=== PATIENT | female | born 1955 | race Two or more races ===

== ENCOUNTER 2024-10-10 07:09 | Inpatient (IN) | payer OTHER, MEDICAID ==
[~2024-10-10] VITALS: Ht 167.6 cm; Wt 73.0 kg
[2024-10-10] VITALS (8 sets, daily range): BP systolic 112; BP diastolic 72; PULSE 103–156; RESP 20–24; TEMP 98.1; O2SAT 93–98
--- NOTE | 2024-10-10 07:18 | ECG ---
[facility] Test Date: 2024-10-10 Test Time: 07:11:42 Pat Name: YUSUF OVERTON Department: ED Room: [address] [place] [address] Gender: F Cassandra Architect: LETHA : 1955 Requested By: TERE PIRES Order Number: [id number] Reading MD: Asad Urbano Measurements Intervals [place] Rate: 148 P: 0 CO: 0 QRS: 79 QRSD: 90 T: 0 QT: 347 QTc: 545 Interpretive Statements Atrial fibrillation Ventricular premature complex Anterior infarct, old ST depression, probably rate related Prolonged QT interval Electronically Signed On 10-12-2024 9:54:53 PDT by Asad Urbano Please click the below link to view image of tracing.
--- NOTE | 2024-10-10 07:51 | ED.PDOC ---
SOB-HPI HPI Comments 69 y/o F, BIBA, with PMHx of CHF, HTN, and COPD presents to the ED for CC of shortness of breath. EMS reports, patient is coming from home where she c/o shortness of breath with associated symptoms of nausea, vomiting, and dizziness onset, 0400 this morning (10/10/24). Per EMS, upon arrival to scene patient was saturating at 84% on continuous 3L NC. In route to the ED, patient was given x1 Duo Neb, saturation improved to 100% on 3L NC. Patient's EKG in route showed AFib RVR, with a HR in the 160's. Upon arrival to the ED, patient was transferred to ER bed 5 for further care. Chief Complaint: Shortness of Breath Time Seen by MD: 07:10 Reviewed notes: Nurses Notes, Skip Hoist Engineer Notes, Medications, Allergies Information Source: Patient Mode of Arrival: EMS Severity: Moderate Timing: Hours Duration: Since onset Context: At Rest PE Risk Factors: None History of: COPD, CHF Prehospital treatment: Breathing Tx Modifying Factors: Nothing Associated Signs and Symptoms: None Past Medical History PAST MEDICAL HISTORY: CHF, COPD, HTN Surgical History: Denies all surgeries PROTECTIVE SIGNAL OPERATIONS SUPERVISOR History: Denies all PROTECTIVE SIGNAL OPERATIONS SUPERVISOR Hx Family History Family History: Unknown Social History Smoker: Non-Smoker Alcohol: Denies ETOH Use Drugs: Denies Drug Use Lives In: Home Constitutional: denies: chills, diaphoresis, fatigue, fever, malaise, sweats, weakness, others EENTM: denies: blurred vision, double vision, ear bleeding, ear discharge, ear drainage, ear pain, ear ringing, eye pain, eye redness, hearing loss, mouth pain, mouth swelling, nasal discharge, nose bleeding, nose congestion, nose pain, photophobia, tearing, throat pain, throat swelling, voice changes, others Respiratory: reports: shortness of breath; denies: cough, hemoptysis, orthopnea, SOB at rest, SOB with excertion, stridor, wheezing, others Cardiovascular: denies: chest pain, dizzy spells, diaphoresis, Dyspnea on exertion, edema, irregular heart beat, left arm pain, lightheadedness, palpitations, PND, syncope, others Gastrointestinal: reports: nausea, vomiting; denies: abdomen distended, abdominal pain, blood streaked bowels, constipated, diarrhea, dysphagia, difficulty swallowing, hematemesis, melena, poor appetite, poor fluid intake, rectal bleeding, rectal pain, others Genitourinary: denies: abnormal vagina bleeding, burning, dyspareunia, dysuria, flank pain, frequency, hematuria, incontinence, pain, , vagina discharge, urgency, others Neurological: reports: dizziness; denies: fainting, headache, left sided numbness, left sided weakness, numbness, paresthesia, pre-existing deficit, right sided numbness, right sided weakness, seizure, speech problems, tingling, tremors, weakness, others Musculoskeletal: denies: back pain, gout, joint pain, joint swelling, muscle pain, muscle stiffness, neck pain, others Integumetry: denies: bruises, change in color, change in hair/nails, dryness, laceration, lesions, lumps, rash, wounds, others Allergic/Immunocompromised: denies: Difficulty Healing, Frequent Infections, Hives, Itching, others Hematologic/Lymphatic: denies: anemia, blood clots, easy bleeding, easy bruising, swollen glands, others Endocrine: denies: excessive hunger, excessive sweating, excessive thirst, excessive urination, flushing, intolerance to cold, intolerance to heat, unexplained weight gain, unexplained weight loss, others Psychiatric: denies: anxiety, bipolar disorder, depression, hopeless, panic disorder, schizophrenia, sleepless, suicidal, others All Other Systems: Reviewed and Negative Physical Exam General Appearance: Mild Distress, Moderate Distress HEENT: Normal ENT Inspection, Pharynx Normal, TMs Normal Neck: Full Range of Motion, Non-Tender, Normal, Normal Inspection Respiratory: Accessory Muscle Use, Decreased Breath Sounds, Expiration, Inspiration, No Respiratory Distress, Rhonchi Cardiovascular: No Murmur, Normal Peripheral Pulses, Tachycardia Breast Exam: Deferred Gastrointestinal: No Organomegaly, Non Tender, No Pulsatile Mass, Normal Bowel Sounds, Soft Genitalia: Deferred Pelvic: Deferred Rectal: Deferred Extremities: No calf tenderness, Normal capillary refill, Normal inspection, Normal range of motion, Non-tender, No pedal edema Neurologic: Alert, transport pilot II-XII nml as Tested, No Motor Deficits, Normal Affect, Normal Mood, No Sensory Deficits Cerebellar Function: Normal Reflexes: Normal Skin: Dry, Normal Color, Warm Peripheral Pulses: 1+ carotid (R), 1+ carotid (L) Lymphatic: No Adenopathy EKG EKG : Pulse Rate (adult): 148 [place]: Normal Cardiac Rhythm: ST, Afib, PVC's Comments Prolonged QT interval Was a procedure done? Was a procedure done?: No Differential Dx Differential Diagnosis: Pulmonary Embolism, Respiratory Distress X-Ray, Labs, Meds, VS Vital Signs Date Time Temp Pulse Resp B/P (MAP) Pulse Ox O2 Delivery O2 Flow Rate FiO2 10/10/24 11:00 114 19 150/102 (118) 95 10/10/24 10:24 98.1 117 20 112/72 94 3.0 32 98.1 10/10/24 10:00 104 24 137/91 (106) 93 10/10/24 09:44 20 94 Nasal Cannula* 3 32 10/10/24 09:09 148 10/10/24 09:00 103 16 129/94 (106) 88 10/10/24 08:14 117 10/10/24 08:00 114 16 112/72 (85) 88 10/10/24 07:59 152 112/72 10/10/24 07:30 98.1 156 24 139/95 (110) 95 98.1 10/10/24 07:30 156 24 95 Nasal Cannula* 3 32 10/10/24 07:11 148 10/10/24 07:09 100 Nasal Cannula* 3 32 10/10/24 07:09 97.8 160 32 147/97 (114) 100 97.8 Lab Test 10/10/24 11:30 10/10/24 10:58 10/10/24 08:32 10/10/24 07:30 Range/Units Urine Color Dark-brown Yellow Urine Clarity Ex.turbid Clear Urine pH 5.5 5.0-9.0 Urine Specific [place] 1.029 1.001-1.035 Urine Protein 1+ H Negative Urine Ketones Negative Negative Urine Blood Negative Negative /uL Urine Nitrite Negative Negative Urine Bilirubin Negative Negative Urine Urobilinogen Normal Negative mg/dL Urine Leukocyte Esterase 2+ Negative /uL Urine RBC 5 0 - 4 /hpf Urine Microscopic WBC 27 H 0-5 /HPF Urine Squamous Epithelial Cells Few <5 /hpf Urine Bacteria Few H None Seen /hpf Urine Mucus Many None Seen Urine Glucose Trace Normal mg/dL Troponin I High Sensitivity 1987 *H 1743 *H 1955 *H </=34 ng/L Sodium Level 144 136-145 mmol/L Potassium Level 4.0 3.5-5.1 mmol/L Chloride Level 110 H 98-107 mmol/L Carbon Dioxide Level 24 20-31 mmol/L Anion Gap 10 5-15 Blood Urea Nitrogen 12 9-23 mg/dL Creatinine 0.71 0.550-1.02 mg/dL Glomerular Filtration Rate Calc 91 >90 mL/min BUN/Creatinine Ratio 16.9 10.0-20.0 Serum Glucose 123 H 74-106 mg/dL Calcium Level 9.2 8.7-10.4 mg/dL Magnesium Level 1.8 1.6-2.6 mg/dL Total Bilirubin 0.9 0.2-1.0 mg/dL Aspartate Amino Transferase (AST) 30 13-40 U/L Alanine Aminotransferase (ALT) 13 7-40 U/L Alkaline Phosphatase 120 H 46-116 U/L Total Protein 5.7 5.7-8.2 g/dL Albumin 3.6 3.2-4.8 g/dL White Blood Count 12.4 H 4.4-10.8 10^3/uL Red Blood Count 4.48 4.0-5.20 10^6/uL Hemoglobin 13.6 12.2-16.2 g/dL Hematocrit 42.0 36.0-46.0 % Mean Corpuscular Volume 93.7 80.0-100.0 fL Mean Corpuscular Hemoglobin 30.4 28.0-32.0 pg Mean Corpuscular Hemoglobin Concent 32.5 32.0-36.0 g/dL Red Cell Distribution Width 17.0 H 11.8-14.3 % Platelet Count 180 140-450 10^3/uL Mean Platelet Volume 7.4 6.9-10.8 fL Neutrophils (%) (Auto) 85.0 H 37.0-80.0 % Lymphocytes (%) (Auto) 7.4 L 10.0-50.0 % Monocytes (%) (Auto) 6.4 0.0-12.0 % Eosinophils (%) (Auto) 0.9 0.0-7.0 % Basophils (%) (Auto) 0.3 0.0-2.0 % Neutrophils # (Auto) 10.6 H 1.6-8.6 10 ^3/uL Lymphocytes # (Auto) 0.9 0.4-5.4 10 ^3/uL Monocytes # (Auto) 0.8 0-1.3 10 ^3/uL Eosinophils # (Auto) 0.1 0-0.8 10 ^3/uL Basophils # (Auto) 0 0-0.2 10 ^3/uL Nucleated Red Blood Cells 0.0 % Prothrombin Time 12.2 H 9.3-11.8 sec Prothrombin Time INR 1.17 H 0.9-1.15 Activated Partial Thromboplast Time 28.5 24.5-34.5 SEC D-Dimer, Quantitative 21.30 H 0.0-0.49 mg/L FEU B-Type Natriuretic Peptide 405.04 0-100 pg/mL Thyroid Stimulating Hormone (TSH) 2.59 0.55-4.78 uIU/mL Current Medications Medications (Trade) Dose Ordered Sig/Naldo Route Start Time Stop Time Status Last Admin Albuterol (Ventolin Medneb) 2.5 mg Q4HR NEB 10/10/24 10:00 10/10/24 09:43 Ipratropium [place] (Atrovent Medneb) 0.5 mg Q4HR NEB 10/10/24 10:00 10/10/24 09:43 Sodium Chloride 1,000 ml @ 30 mls/hr Q24H ONCE IV 10/10/24 07:30 10/11/24 07:29 10/10/24 07:58 Labetalol HCl (Labetalol HCl) 10 mg ONCE ONCE IV 10/10/24 07:45 10/10/24 07:46 DC 10/10/24 07:59 Acetaminophen/ Hydrocodone Bitart ([place] 5/325MG Tab) 1 tab ONCE ONCE PO 10/10/24 09:15 10/10/24 09:16 DC 10/10/24 09:23 Heparin Sodium (Porcine) 3,800 units ONCE ONCE IV 10/10/24 09:30 10/10/24 09:31 DC 10/10/24 09:27 Heparin Sodium/ Dextrose 250 ml @ 8 mls/hr Q24H IV 10/10/24 09:30 10/10/24 10:02 [facility] [id number] [place] [id number] Ph: [phone] DIAGNOSTIC IMAGING Diagnostic Imaging Report : [id number] Signed PATIENT: FREDY BOATENG ACCT: [id number] UNIT: [id number] : 1955 LOC: ER ROOM / BED: / AGE / SEX: 69 / F ADM STATUS: REG ER SERVICE 5 ORDERING PHYSICIAN: TERE PIRES MD PROCEDURE(s): CXRP - CHEST PORTABLE REASON: sob ORDER NUMBER(s): [id number], ACCESSION NUMBER(s): [id number] CHEST RADIOGRAPH Indication: sob Technique: Single frontal view of the chest was obtained Comparison: None FINDINGS: Lines and Tubes: None Lungs: Bilateral interstitial prominence. Pleura: Small bilateral pleural effusions. No pneumothorax. Cardiomediastinal contours: Unremarkable Bones: No acute osseous abnormality. IMPRESSION: 1. Small bilateral pleural effusions. Pulmonary vascular congestion. ATED BY: YONG TEMPLE MD DICTATED DATE/TIME: 10/10/24809 SIGNED BY: YONG TEMPLE MD SIGNED DATE/TIME: 10/10/24809 CC: X-Ray, Labs, Meds, VS Comment 69-year-old black female presented to the emergency department complaining of short shortness of breath atrial fibrillation somewhat agitated the chest x-ray shows pulmonary vascular congestion and bilateral pleural effusion EKG shows atrial fibrillation and one 0 on 148 with a PVCs and QT interval prolonged The 2nd EKG slow down to 117 CBC 69495 85 % neutrophils normal H&H D-dimer 21.3 very elevated INR one 0.17 CMP normal Magnesium 1.8 Troponin 1955 and 1742 BNP 405 TSH 2.[address] angiogram at shows pulmonary embolism Patient will be admitted under Cardiology was consulted Time of 1ST Reevaluation: 07:40 Reevaluation 1ST: Unchanged Patient Education/Counseling: Diagnosis, Treatment Family Education/Counseling: No Family Present SEPSIS Sepsis Screen Date sepsis recognized/suspect: Oct 10, 2024 Time Sepsis recognized/suspect: 708 Recent Procedure: No On Antibiotic Therapy: No Respiratory Rate >20: Yes Heart Rate >90: Yes Temp<36 C (96.8 F) or >38.3 C: No SBP <90 or MAP <65 mmHG: No New Acute Mental Status Change: No Is the patient on CPAP, BIPAP,: No Physician Orders Electrocardigram (10/10/24 10:15) Albuterol Medneb (Ventolin Medneb) (10/10/24 10:00) Ipratropium Medneb (Atrovent Medneb) (10/10/24 10:00) Chest Portable (10/10/24 07:26) [place]ock Iv (10/10/24 07:26) Oxygen (10/10/24 07:26) Wine Manager (10/10/24 07:26) Blood Pressure (10/10/24 07:26) Pulse Oximetry (10/10/24 07:26) Sodium Chloride 0.9% (10/10/24 07:30) Platelet Monitoring (10/10/24 09:20) Heparin Per Standardized Proce (10/10/24 09:20) Discontinue All Im Injections (10/10/24 09:20) Heparin Drip/D5w 100units/Ml (10/10/24 09:30) Stat Ekg For Chest Pain (10/10/24 09:20) Heparin Protocol (10/10/24 09:51) PTPTT (10/10/24 16:00) Ct Angio Chest Contrast (10/10/24 10:22) Bilat Lower Dvt (10/10/24 11:20) Echo 2d Mode Cardiac Dop (10/10/24 11:20) Furosemide Injection (Lasix Injection) (10/10/24 18:00) Strict I & O QSHIFT (10/10/24 11:21) Obtain Daily Weight 22 (10/10/24 11:21) Maintain Fluid Restrictions QSHIFT (10/10/24 11:21) Insert/Manage Urinary Catheter QSHIFT (10/10/24 11:28) Atorvastatin (Lipitor) (10/10/24 22:00) Empagliflozin (Jardiance) (10/11/24 10:00) Losartan Tablet (Cozaar Tablet) (10/11/24 10:00) Spironolactone (Aldactone) (10/11/24 10:00) Amiodarone 360mg/200ml Premix (Nexterone (10/10/24 12:15) Amiodarone 360mg/200ml Premix (Nexterone (10/10/24 18:15) Magnesium Sulfate 1gm/100ml (10/10/24 12:15) Vital Signs Date Time Temp Pulse Resp B/P (MAP) Pulse Ox O2 Delivery O2 Flow Rate FiO2 10/10/24 11:00 114 19 150/102 (118) 95 10/10/24 10:24 98.1 117 20 112/72 94 3.0 32 98.1 10/10/24 10:00 104 24 137/91 (106) 93 10/10/24 09:44 20 94 Nasal Cannula* 3 32 10/10/24 09:09 148 10/10/24 09:00 103 16 129/94 (106) 88 10/10/24 08:14 117 10/10/24 08:00 114 16 112/72 (85) 88 10/10/24 07:59 152 112/72 10/10/24 07:30 98.1 156 24 139/95 (110) 95 98.1 10/10/24 07:30 156 24 95 Nasal Cannula* 3 32 10/10/24 07:11 148 10/10/24 07:09 100 Nasal Cannula* 3 32 10/10/24 07:09 97.8 160 32 147/97 (114) 100 97.8 Laboratory Tests Test 10/10/24 07:30 White Blood Count 12.4 10^3/uL (4.4-10.8) H Medications Medications Dose Ordered Sig/Naldo Route Start Time Stop Time Status Last Admin Dose Admin Acetaminophen/ Hydrocodone Bitart 1 tab ONCE ONCE PO 10/10/24 09:15 10/10/24 09:16 DC 10/10/24 09:23 Albuterol 2.5 mg Q4HR NEB 10/10/24 10:00 10/10/24 09:43 Heparin Sodium (Porcine) 3,800 units ONCE ONCE IV 10/10/24 09:30 10/10/24 09:31 DC 10/10/24 09:27 Heparin Sodium/ Dextrose 250 ml @ 8 mls/hr Q24H IV 10/10/24 09:30 10/10/24 10:02 Ipratropium [place] 0.5 mg Q4HR NEB 10/10/24 10:00 10/10/24 09:43 Labetalol HCl 10 mg ONCE ONCE IV 10/10/24 07:45 10/10/24 07:46 DC 10/10/24 07:59 Sodium Chloride 1,000 ml @ 30 mls/hr Q24H ONCE IV 10/10/24 07:30 10/11/24 07:29 10/10/24 07:58 Departure 1 Departure Time of Disposition: 12:52 Impression: Primary Impression: Uncontrolled atrial fibrillation Additional Impressions: Elevated d-dimer Acute coronary syndrome with high troponin Pulmonary embolism Qualified Codes: I26.99 - Other pulmonary embolism without acute cor pulmonale Congestive heart failure Qualified Codes: I50.43 - Acute on chronic combined systolic (congestive) and diastolic (congestive) heart failure Disposition: ADMITTED INPATIENT Admit to: ICU Condition: Critical Critical Care Note Critical Care Time?: Yes (30 min-critical care time only) Stability Stability form required: Yes Unstable for transfer: ICU, CCU, PCU, MIRNA (Intensive VS monitoring), Requires medication (Requires Med for stabilization) Heart Score Heart Score: Heart Score Response (Comments) Value History Highly Suspicious 2 EKG Repolarization Disturb 1 Age N/A 0 Risk Factors >3 or Hx ASHD 2 Troponin >3 x's Normal limit 2 Total 7 I personally scribed for TERE PIRES MD ([email or web address]) on 10/10/24 at 07:51. Electronically submitted by Jud Fu ([email or web address]). I personally scribed for TERE PIRES MD ([email or web address]) on 10/10/24 at 08:55. Electronically submitted by Jud Fu ([email or web address]). TERE PIRES MD Oct 10, 2024 07:51
[2024-10-10] MEDS: SODIUM CHLORIDE 0.9% 1,000 ML IV ONE (07:58)
[2024-10-10] MEDS: LABETALOL HCL 20 MG/4 ML VL IV ONE (07:59)
[2024-10-10 08:00] LABS: Hematocrit 42.0 % (36.0-46.0); Hemoglobin 13.6 g/dL (12.2-16.2); Mean Corpuscular Hemoglobin 30.4 pg (28.0-32.0); Mean Corpuscular Volume 93.7 fL (80.0-100.0); Nucleated Red Blood Cells % 0.0 %
--- NOTE | 2024-10-10 08:12 | DVH ---
CHEST RADIOGRAPH Indication: sob Technique: Single frontal view of the chest was obtained Comparison: None FINDINGS: Lines and Tubes: None Lungs: Bilateral interstitial prominence. Pleura: Small bilateral pleural effusions. No pneumothorax. Cardiomediastinal contours: Unremarkable Bones: No acute osseous abnormality. IMPRESSION: 1. Small bilateral pleural effusions. Pulmonary vascular congestion.
--- NOTE | 2024-10-10 08:15 | ECG ---
[facility] Test Date: 2024-10-10 Test Time: 08:14:00 Pat Name: YSUUF OVERTON Department: ED Room: [address] [place] [address] Gender: F Trick Rodeo Rider: gp : 1955 Requested By: TERE PIRES Order Number: [id number] Reading MD: Asad Urbano Measurements Intervals [place] Rate: 117 P: 0 CO: 0 QRS: 81 QRSD: 84 T: 76 QT: 352 QTc: 491 Interpretive Statements Atrial fibrillation Anterior infarct, old Electronically Signed On 10-12-2024 10:20:50 PDT by Asad Urbano Please click the below link to view image of tracing.
[2024-10-10 08:23] LABS: INR 1.17 (0.9-1.15); Partial Thromboplastin Time 28.5 SEC (24.5-34.5); Prothrombin Time 12.2 sec (9.3-11.8)
[2024-10-10 09:00] LABS: Alanine Aminotransferase 13 U/L (7-40); Albumin 3.6 g/dL (3.2-4.8); Anion Gap 10 (5-15); BUN/Creatinine Ratio 16.9 (10.0-20.0); Blood Urea Nitrogen 12 mg/dL (9-23); Calcium 9.2 mg/dL (8.7-10.4); Carbon Dioxide 24 mmol/L (20-31); Magnesium 1.8 mg/dL (1.6-2.6); Potassium 4.0 mmol/L (3.5-5.1); Sodium 144 mmol/L (136-145)
[2024-10-10 09:01] LABS: Bilirubin, Total 0.9 mg/dL (0.2-1.0)
[2024-10-10 09:12] LABS: Alkaline Phosphatase 120 U/L (46-116); Chloride 110 mmol/L (98-107); Glucose 123 mg/dL (74-106); Total Protein 5.7 g/dL (5.7-8.2)
[2024-10-10] MEDS: HYDROcodone-ACET 5/325MG TAB PO ONE ×2 (09:23→14:59)
[2024-10-10] MEDS: HEPARIN SODIUM (PORCINE) 5000 UNITS/ML 1ML VIAL IV ONE (09:27)
[2024-10-10] MEDS: IPRATROPIUM BROM 0.5 MG/2.5ML INH SOL NEB SCH ×2 (09:43→18:08)
[2024-10-10] MEDS: ALBUTEROL SULF 2.5 MG/0.5ML(0.5%) NEB SOLN NEB SCH ×2 (09:43→18:07)
[2024-10-10] MEDS: HEPARIN DRIP/D5W 100UNITS/ML 250 ML IV SCH (10:02)
--- NOTE | 2024-10-10 10:09 | CONS ---
Pharmacy Clinical Information: HEPARIN DRIP PER PHARMACY SPOKE TO RUTH STANLEY REGARDING HEPARIN DRIP INITIATION CURRENT aPTT: 28.5 ON 10/10/2024 AT 07:30 BOLUS: 3800 UNITS IVP X1 PER MD INITIAL HEPARIN DRIP RATE: 800 UNITS/HR DATE AND TIME HEPARIN DRIP STARTED: 10:02 ON 10/10/2024 NEXT aPTT: 10/10/2024 AT 1600 RN JADEN READ BACK INITIAL HEPARIN DRIP RATE: 800 UNITS/HR TIM Ragland Oct 10, 2024 10:09
--- NOTE | 2024-10-10 11:19 | DVHINCON2 ---
Date Seen: Oct 10, 2024 Referring Physician MD Juanita Reason for Consultation NSTEMI History of Present Illness This is a 69-year-old female who presented to the emergency room via EMS with a chief complaint of shortness of breath since yesterday. The patient complains of progressive shortness of breath associated with LOOMIS and PND. Denies orthopnea or bilateral lower extremity edema. She was found by EMS with an ox ygen saturation level of 84% on home O2 anterior L/min for which she received a DuoNeb treatment EN route to the hospital with improvement in O2 saturations up to 100%. She underwent a 12 lead electrocardiogram revealing an atrial fibrillation rhythm with rapid ventricular rate in the 140s bpm and a QTC of 545 ms. The patient endorses not taking her Lasix therapy for approximately 2-3 days secondary to a recent admission at [facility] on 10/05/2024 where she presented with complaints of left rib cage pain undergoing an unspecified biopsy with results pending at this time. The patient also reports an admission to [facility] back on May 2024 where she was diagnosed with CHF and atrial fibrillation. At that time, she reports undergoing a cardiac catheterization without catheter based intervention given normal coronaries. States she has an upcoming appointment with Cardiology next month. Significant medical history includes unspecified congestive heart failure, paroxysmal atrial fibrillation on Eliquis/amiodarone therapy, COPD, history of pneumonia, hypertension, and dyslipidemia. Past Medical History Past medical history reviewed. No other significant than mentioned above. Past Surgical History Left-sided rib cage biopsy Family History Family history reviewed. Social History Denies the use of illicit drugs, alcohol, or tobacco use. Allergies: Coded Allergies: Aspirin (Verified Allergy, Unknown, 10/10/24) Home Meds Home medications reviewed. Current Medications Current Medications Medications (Trade) Dose Ordered Sig/Naldo Route PRN Reason Start Time Stop Time Status Last Admin Albuterol (Ventolin Medneb) 2.5 mg Q4HR NEB 10/10/24 10:00 10/10/24 09:43 Ipratropium [place] (Atrovent Medneb) 0.5 mg Q4HR NEB 10/10/24 10:00 10/10/24 09:43 Heparin Sodium/ Dextrose 250 ml @ 8 mls/hr Q24H IV 10/10/24 09:30 10/10/24 10:02 Review of Systems Constitutional: No symptom reported Ears, Nose, & Throat: No symptom reported Eyes: No symptom reported Neurological: No symptoms reported Pulmonary/Respiratory: SOB, LOOMIS, PND Cardiovascular: No symptom reported Gastrointestinal: No symptom reported Genitourinary: No symptom reported Musculoskeletal: No symptom reported Skin: No symptom reported Psychiatric: No symptom reported Endocrine: No symptom reported Hemotologic/Lymphatic: No symptom reported Vital Signs Vital Signs Date Time Temp Pulse Resp B/P (MAP) Pulse Ox O2 Delivery O2 Flow Rate FiO2 10/10/24 10:24 98.1 117 20 112/72 94 3.0 32 98.1 10/10/24 09:44 Nasal Cannula* Physical Exam General Appearance: Cooperative. Well developed. Well nourished. In no acute distress Head Exam: Normal inspection Neck Exam: Normal inspection. Non-tender. Normal alignment Pulmonary/Respiratory: Chest non-tender. Crackles to bilateral breath sounds. O2 via NC Cardiovascular/Chest: Irregularly irregular rate and rhythm. AFib with RVR. No murmurs. No JVD. Peripheral Pulses: 2+ Radial (R). 2+ Radial (L). 2+ Pedal (R). 2+ Pedal (L) Abdominal Exam: Normal bowel sounds. Soft. Nontender. No hepatospenomegaly. N o masses Ankle Exam: Negative ankle edema Lower extremities: Negative lower extremity edema Neuro/Mental Status: A&O x3. Coherent somewhat poor historian Thoughts/Psych: Normal thought pattern. Appropriate mood and affect. Good judgement and insight Appearance: In no acute distress Skin Exam: Normal inspection. Normal color. Warm. Dry Labs/Diagnostic Data Labs Test 10/10/24 10:58 10/10/24 08:32 10/10/24 07:30 Range/Units Sodium Level 144 136-145 mmol/L Potassium Level 4.0 3.5-5.1 mmol/L Chloride Level 110 H 98-107 mmol/L Carbon Dioxide Level 24 20-31 mmol/L Anion Gap 10 5-15 Blood Urea Nitrogen 12 9-23 mg/dL Creatinine 0.71 0.550-1.02 mg/dL Glomerular Filtration Rate Calc 91 >90 mL/min BUN/Creatinine Ratio 16.9 10.0-20.0 Serum Glucose 123 H 74-106 mg/dL Calcium Level 9.2 8.7-10.4 mg/dL Magnesium Level 1.8 1.6-2.6 mg/dL Total Bilirubin 0.9 0.2-1.0 mg/dL Aspartate Amino Transferase (AST) 30 13-40 U/L Alanine Aminotransferase (ALT) 13 7-40 U/L Alkaline Phosphatase 120 H 46-116 U/L Total Protein 5.7 5.7-8.2 g/dL Albumin 3.6 3.2-4.8 g/dL White Blood Count 12.4 H 4.4-10.8 10^3/uL Red Blood Count 4.48 4.0-5.20 10^6/uL Hemoglobin 13.6 12.2-16.2 g/dL Hematocrit 42.0 36.0-46.0 % Mean Corpuscular Volume 93.7 80.0-100.0 fL Mean Corpuscular Hemoglobin 30.4 28.0-32.0 pg Mean Corpuscular Hemoglobin Concent 32.5 32.0-36.0 g/dL Red Cell Distribution Width 17.0 H 11.8-14.3 % Platelet Count 180 140-450 10^3/uL Mean Platelet Volume 7.4 6.9-10.8 fL Neutrophils (%) (Auto) 85.0 H 37.0-80.0 % Lymphocytes (%) (Auto) 7.4 L 10.0-50.0 % Monocytes (%) (Auto) 6.4 0.0-12.0 % Eosinophils (%) (Auto) 0.9 0.0-7.0 % Basophils (%) (Auto) 0.3 0.0-2.0 % Neutrophils # (Auto) 10.6 H 1.6-8.6 10 ^3/uL Lymphocytes # (Auto) 0.9 0.4-5.4 10 ^3/uL Monocytes # (Auto) 0.8 0-1.3 10 ^3/uL Eosinophils # (Auto) 0.1 0-0.8 10 ^3/uL Basophils # (Auto) 0 0-0.2 10 ^3/uL Nucleated Red Blood Cells 0.0 % Prothrombin Time 12.2 H 9.3-11.8 sec Prothrombin Time INR 1.17 H 0.9-1.15 Activated Partial Thromboplast Time 28.5 24.5-34.5 SEC D-Dimer, Quantitative 21.30 H 0.0-0.49 mg/L FEU B-Type Natriuretic Peptide 405.04 0-100 pg/mL Thyroid Stimulating Hormone (TSH) 2.59 0.55-4.78 uIU/mL Assessment Acute on chronic decompensated HFrEF, NYHA Class III-IV Acute hypoxic respiratory failure secondary to above Paroxysmal atrial fibrillation with rapid ventricular response, uncontrolled rate (on amiodarone/Eliquis therapy) Elevated D-dimer rule out PE/DVT NSTEMI, likely type 2 secondary to above Hypertension Dyslipidemia Suboptimal medical therapy Plan/Recommendation (Dr. Roque) Agree with a CT angio contrast of the chest in addition to bilateral lower extremity DVT given elevated D-dimer. Initiate heparin drip per pharmacy protocol. Obtain a transthoracic echocardiogram to evaluate cardiac function. In the meantime, initiate preload and afterload reduction as tolerated. Strict I&Os, daily weight, fluid restrictions. Initiate GDMT for HFrEF with exception of BB at this time. Initiate amiodarone drip per pharmacy protocol and monitor QTc closely. [id number] Score 4 points. HAS-BLED Score 1 point. Replete electrolytes as necessary, K>4 and Mg>2. Further orders per clinical course. Thank you for allowing us to participate in this patient's care. Please call if you have any questions or concerns. Critical care time: 45 min. This medical document was created using an electronic medical record system with voice recognition software and computerized dictation system. Although this document has been carefully reviewed, there might still be some phonetic and typographical errors. Occasional wrong-word or ``sound-alike substitutions may have occurred due to the inherent limitations of voice recognition software. These areas are purely typographical due to imperfections of the software programs and do not reflect any compromise in the patient's medical care. Please read the chart carefully and recognize, using context, where these substitutions have occurred. Plan discussed with: Patient, Other NYHA Physical activity limitations: Class4(Severe)discomfort (w any activit,symptoms at rest) Date of Service: Oct 10, 2024 Billing Provider: RAINER BEAVER Cardiology Common Codes: 40097-JRQXQAUT CARE 30-74 MIN RAINER BEAVER Oct 10, 2024 11:19
[2024-10-10] MEDS: IOHEXOL 350 MG/ML 100ML IJ ONE (11:53)
[2024-10-10 12:16] LABS: Urine Protein, UAD 1+ (Negative)
[2024-10-10] MEDS: LOSARTAN POTASSIUM 25 MG TAB PO ONE (12:30)
[2024-10-10] MEDS: EMPAGLIFLOZIN 10 MG TAB PO ONE (12:30)
[2024-10-10] MEDS: FUROSEMIDE 40 MG/4 ML VIAL IV ONE (12:30)
[2024-10-10] MEDS: MAGNESIUM SULFATE 1GM/100ML 100 ML IV ONE (12:30)
[2024-10-10] MEDS: AMIODARONE BOLUS KIT 100 ML IV ONE (12:30)
[2024-10-10] MEDS: SPIRONOLACTONE 25 MG TAB PO ONE (12:30)
--- NOTE | 2024-10-10 12:31 | DVH ---
Indication: pe Technique: CT axial images of the chest are obtained with intravenous contrast per CT angiogram prot ocol. Coronal and sagittal reformats were obtained. Radiation Dose Information: CTDI volume is 26.64 mGy. Dose-length product is 766.67 mGy*cm Comparison: None FINDINGS: Small filling defect within right lower lobe subsegmental branch. Small filling defects within left u pper lobe lingular segment segmental, subsegmental branches. Trachea patent. No pneumothorax. Pulmonary emphysematous changes. Right lower lobe nodule measuring 1 2 mm. Left lower lobe nodule measuring 9 mm. 7 mm right upper lobe pulmonary nodule. Small bilateral pleural effusions. Right lower lobe consolidation versus masslike lesion measuring 3.5 x 3.0 cm. Right hilar lymph nodes measuring 1.5 cm, 1.8 cm. Left hilar lymph node measuring 1.9 cm, 1.5 cm. Pretracheal lymph node miesha suring 1.4 cm. No supraclavicular, axillary lymphadenopathy. Reflux of contrast the hepatic veins and IVC. Right ventricle measures 3.8 cm. Left ventricle measur es 3.9 cm. Mild thoracolumbar degenerative disc disease. IMPRESSION: Small bilateral pulmonary emboli. Right lower lobe masslike consolidation versus mass measuring 3.5 cm. Follow-up to resolution to excl ude underlying pulmonary mass. Extensive mediastinal and hilar lymphadenopathy as described. Bilateral pulmonary nodules up to 12 mm. Recommend follow-up per Fleischner society criteria. Small bilateral pleural effusions. Reflux of contrast the hepatic veins and IVC which can be seen with right heart dysfunction. Extensive pulmonary emphysematous changes. Other findings as described. Critical Result: Pulmonary embolism Findings discussed with Dr Grant , at 10/10/2024 12:27 PM, and acknowledged receipt and understanding of the findings. ..
[2024-10-10] MEDS: AMIODARONE 360mg/200mL PREMIX 200 ML IV ONE (12:45)
--- NOTE | 2024-10-10 12:56 | DVH ---
US BiLat Lower DVT HISTORY: Elevated d-dimer COMPARISON: None TECHNIQUE: Duplex doppler evaluation of the deep venous system of the lower extremity from the common femoral veins, superficial femoral vein, great saphenous vein, deep femoral vein, popliteal vein, an d calf veins, including color doppler and spectral/pulsed waveform analysis, was performed. FINDINGS: Right: - Common femoral vein: Compressible - Deep femoral vein: Compressible - Femoral vein: Compressible - Popliteal vein: Compressible - Posterior tibial vein: Waveforms present - Other: Nothing Left: - Common femoral vein: Compressible - Deep femoral vein: Compressible - Femoral vein: Compressible - Popliteal vein: Compressible - Posterior tibial vein: Waveforms present - Other: Nothing IMPRESSION: No right or left lower extremity deep venous thrombosis.
[2024-10-10 14:58] LABS: Base Excess -0.3 mmol/L (-2.0-3.0)
[2024-10-10 16:28] LABS: INR 1.18 (0.9-1.15); Partial Thromboplastin Time 57.5 SEC (24.5-34.5); Prothrombin Time 12.3 sec (9.3-11.8)
[2024-10-10] MEDS ORDERED: NITROGLYCERIN 0.4 MG SL TAB SL PRN (17:45)
[2024-10-10] MEDS ORDERED: ACETAMINOPHEN 325 MG TAB PO PRN (17:45)
[2024-10-10] MEDS ORDERED: ATOR20TA50 PO (17:47)
[2024-10-10] MEDS ORDERED: HYDR50TA47 PO (17:47)
[2024-10-10] MEDS ORDERED: CYCL-611 PO (17:47)
[2024-10-10] MEDS: cefTRIAXone 1GM/50ML D5W 50 ML IV SCH (17:48)
--- NOTE | 2024-10-10 17:59 | DVHHP2 ---
History of Present Illness Reason for Visit: SOB History of Present Illness Partner, Maldonado Reynoso is a 69-year-old female with past medical history of hypertension, hyperlipidemia, COPD, pneumonia, AFib, and CHF who presents to the ED with shortness of breath with nausea, vomiting, and dizziness since 4:00 a.m. this morning. Patient was brought in by EMS from home. Patient reports that she has been noncompliant with her medications. Patient reports that she took her Lasix yesterday but not today. Her daughter Megan is at the bedside. Patient reports that she lives at home with her family. Also does not use any DME is when she ambulates. She reports that she uses 3 L of oxygen via nasal cannula continuously. She also states that she was at [facility] recently on October 05 and had a lung biopsy done for the right lower lobe mass. Patient also reports prior to that she was at [facility] in April and was diagnosed with CHF and AFib. Patient states that she used to smoke 3/4 of pack of cigarettes per day but quit recently. She denies any recent trauma or injury, recent travels, fever, chills, lightheadedness, weakness, abdominal pain, chest pain, or urinary symptoms. Patient's daughter Megan states that she had the pure wick for a long duration of time. She does report that her mom has lung cancer. Cardiovascular: AFIB, CHF, HTN, hyperipidemia Pulmonary: COPD, Pneumonia Past Surgical History: Other (Right lung biopsy at [facility] last month) Family History: Cancer, Other (Mom with lung cancer) Smoke: Quit ALCOHOL: none Drugs: None Lives: with Family Domestic Violence: Neg Review of Systems Constitutional: Yes: Other (Dizziness) Respiratory: Shortness of breath Gastrointestinal: Nausea, Vomiting Allergies: Coded Allergies: Aspirin (Verified Allergy, Unknown, 10/10/24) Medications Current Medications Medications Dose Ordered Sig/Naldo Route Start Time Stop Time Status Last Admin Dose Admin Albuterol 2.5 mg Q4HR NEB 10/10/24 10:00 10/10/24 13:23 2.5 MG Ipratropium [place] 0.5 mg Q4HR NEB 10/10/24 10:00 10/10/24 13:23 0.5 MG Heparin Sodium/ Dextrose 250 ml @ 8 mls/hr Q24H IV 10/10/24 09:30 10/10/24 10:02 8 MLS/HR Furosemide 40 mg BIDD IV 10/10/24 18:00 Atorvastatin Calcium 40 mg HS PO 10/10/24 22:00 Empaglifozin 10 mg DAILY PO 10/11/24 10:00 Losartan Potassium 12.5 mg DAILY PO 10/11/24 10:00 Spironolactone 25 mg DAILY PO 10/11/24 10:00 Exam Vital Signs Vital Signs Date Time Temp Pulse Resp B/P (MAP) Pulse Ox O2 Delivery O2 Flow Rate FiO2 10/10/24 15:00 117 21 145/76 (99) 92 10/10/24 13:24 Nasal Cannula* 3 32 10/10/24 10:24 98.1 98.1 General Appearance: Alert, Oriented X3, Cooperative, mild distress HEENT: Atraumatic, PERRLA, EOMI, Mucous membr. moist/pink Respiratory: Other (Diminished) Cardiovascular: Normal S1, Normal S2, No murmurs Abdominal: Soft Extremities: Normal pulses Skin: No significant lesion Neuro: Normal speech, Normal tone, Sensation intact Psych/Mental Status: Mental status NL, Mood NL Labs/Xrays Labs Test 10/10/24 15:55 10/10/24 14:48 10/10/24 11:30 10/10/24 10:58 Range/Units Prothrombin Time 12.3 H 9.3-11.8 sec Prothrombin Time INR 1.18 H 0.9-1.15 Activated Partial Thromboplast Time 57.5 H 24.5-34.5 SEC Blood Gas Specimen Type Arterial Blood Gas Sample Site Right radial Blood Gas Patient Temperature 37.0 Arterial Blood Date Drawn [id number] Arterial Blood pH 7.391 7.350-7.450 Arterial Blood Partial Pressure CO2 41.7 32.0-45.0 mmHg Arterial Blood Partial Pressure O2 65.8 L 83.0-108.0 mmHg Arterial Blood HCO3 24.7 21.0-28.0 mmol/L Arterial Blood Oxygen Saturation 91.5 L 94.0-98.0 % Arterial Blood Base Excess -0.3 -2.0-3.0 mmol/L Arterial Blood Oxyhemoglobin 89.8 L 94.0-98.0 % Arterial Blood Carboxyhemoglobin 1.4 0.5-1.5 % Arterial Blood Methemoglobin 0.5 0.0-1.5 % Alonso Test Yes Blood Gas Total Hemoglobin 13.70 12.0-16.0 g/dL Blood Gas Liter Flow 3.00 Blood Gas Modality Nasal cannula FiO2 % 32.0 Urine Color Dark-brown Yellow Urine Clarity Ex.turbid Clear Urine pH 5.5 5.0-9.0 Urine Specific [place] 1.029 1.001-1.035 Urine Protein 1+ H Negative Urine Ketones Negative Negative Urine Blood Negative Negative /uL Urine Nitrite Negative Negative Urine Bilirubin Negative Negative Urine Urobilinogen Normal Negative mg/dL Urine Leukocyte Esterase 2+ Negative /uL Urine RBC 5 0 - 4 /hpf Urine Microscopic WBC 27 H 0-5 /HPF Urine Squamous Epithelial Cells Few <5 /hpf Urine Bacteria Few H None Seen /hpf Urine Mucus Many None Seen Urine Glucose Trace Normal mg/dL Troponin I High Sensitivity 1986 *H </=34 ng/L Test 10/10/24 08:32 10/10/24 07:30 Range/Units Sodium Level 144 136-145 mmol/L Potassium Level 4.0 3.5-5.1 mmol/L Chloride Level 110 H 98-107 mmol/L Carbon Dioxide Level 24 20-31 mmol/L Anion Gap 10 5-15 Blood Urea Nitrogen 12 9-23 mg/dL Creatinine 0.71 0.550-1.02 mg/dL Glomerular Filtration Rate Calc 91 >90 mL/min BUN/Creatinine Ratio 16.9 10.0-20.0 Serum Glucose 123 H 74-106 mg/dL Calcium Level 9.2 8.7-10.4 mg/dL Magnesium Level 1.8 1.6-2.6 mg/dL Total Bilirubin 0.9 0.2-1.0 mg/dL Aspartate Amino Transferase (AST) 30 13-40 U/L Alanine Aminotransferase (ALT) 13 7-40 U/L Alkaline Phosphatase 120 H 46-116 U/L Total Protein 5.7 5.7-8.2 g/dL Albumin 3.6 3.2-4.8 g/dL White Blood Count 12.4 H 4.4-10.8 10^3/uL Red Blood Count 4.48 4.0-5.20 10^6/uL Hemoglobin 13.6 12.2-16.2 g/dL Hematocrit 42.0 36.0-46.0 % Mean Corpuscular Volume 93.7 80.0-100.0 fL Mean Corpuscular Hemoglobin 30.4 28.0-32.0 pg Mean Corpuscular Hemoglobin Concent 32.5 32.0-36.0 g/dL Red Cell Distribution Width 17.0 H 11.8-14.3 % Platelet Count 180 140-450 10^3/uL Mean Platelet Volume 7.4 6.9-10.8 fL Neutrophils (%) (Auto) 85.0 H 37.0-80.0 % Lymphocytes (%) (Auto) 7.4 L 10.0-50.0 % Monocytes (%) (Auto) 6.4 0.0-12.0 % Eosinophils (%) (Auto) 0.9 0.0-7.0 % Basophils (%) (Auto) 0.3 0.0-2.0 % Neutrophils # (Auto) 10.6 H 1.6-8.6 10 ^3/uL Lymphocytes # (Auto) 0.9 0.4-5.4 10 ^3/uL Monocytes # (Auto) 0.8 0-1.3 10 ^3/uL Eosinophils # (Auto) 0.1 0-0.8 10 ^3/uL Basophils # (Auto) 0 0-0.2 10 ^3/uL Nucleated Red Blood Cells 0.0 % D-Dimer, Quantitative 21.30 H 0.0-0.49 mg/L FEU B-Type Natriuretic Peptide 405.04 0-100 pg/mL Thyroid Stimulating Hormone (TSH) 2.59 0.55-4.78 uIU/mL US BiLat Lower DVT HISTORY: Elevated d-dimer COMPARISON: None TECHNIQUE: Duplex doppler evaluation of the deep venous system of the lower extremity from the common femoral veins, superficial femoral vein, great saphenous vein, deep femoral vein, popliteal vein, and calf veins, including color doppler and spectral/pulsed waveform analysis, was performed. FINDINGS: Right: - Common femoral vein: Compressible - Deep femoral vein: Compressible - Femoral vein: Compressible - Popliteal vein: Compressible - Posterior tibial vein: Waveforms present - Other: Nothing Left: - Common femoral vein: Compressible - Deep femoral vein: Compressible - Femoral vein: Compressible - Popliteal vein: Compressible - Posterior tibial vein: Waveforms present - Other: Nothing IMPRESSION: No right or left lower extremity deep venous thrombosis. Indication: pe Technique: CT axial images of the chest are obtained with intravenous contrast per CT angiogram protocol. Coronal and sagittal reformats were obtained. Radiation Dose Information: CTDI volume is 26.64 mGy. Dose-length product is 766.67 mGy*cm Comparison: None FINDINGS: Small filling defect within right lower lobe subsegmental branch. Small filling defects within left upper lobe lingular segment segmental, subsegmental branches. Trachea patent. No pneumothorax. Pulmonary emphysematous changes. Right lower lobe nodule measuring 12 mm. Left lower lobe nodule measuring 9 mm. 7 mm right upper lobe pulmonary nodule. Small bilateral pleural effusions. Right lower lobe consolidation versus masslike lesion measuring 3.5 x 3.0 cm. Right hilar lymph nodes measuring 1.5 cm, 1.8 cm. Left hilar lymph node measuring 1.9 cm, 1.5 cm. Pretracheal lymph node measuring 1.4 cm. No supraclavicular, axillary lymphadenopathy. Reflux of contrast the hepatic veins and IVC. Right ventricle measures 3.8 cm. Left ventricle measures 3.9 cm. Mild thoracolumbar degenerative disc disease. IMPRESSION: Small bilateral pulmonary emboli. Right lower lobe masslike consolidation versus mass measuring 3.5 cm. Follow-up to resolution to exclude underlying pulmonary mass. Extensive mediastinal and hilar lymphadenopathy as described. Bilateral pulmonary nodules up to 12 mm. Recommend follow-up per Fleischner society criteria. Small bilateral pleural effusions. Reflux of contrast the hepatic veins and IVC which can be seen with right heart dysfunction. Extensive pulmonary emphysematous changes. Other findings as described. Critical Result: Pulmonary embolism Findings discussed with Dr Grant , at 10/10/2024 12:27 PM, and acknowledged receipt and understanding of the findings. CHEST RADIOGRAPH Indication: sob Technique: Single frontal view of the chest was obtained Comparison: None FINDINGS: Lines and Tubes: None Lungs: Bilateral interstitial prominence. Pleura: Small bilateral pleural effusions. No pneumothorax. Cardiomediastinal contours: Unremarkable Bones: No acute osseous abnormality. IMPRESSION: 1. Small bilateral pleural effusions. Pulmonary vascular congestion. Assessment/Plan Assessment/Plan Assessment Acute hypoxic respiratory failure Acute on chronic CHF exacerbation Hypertension Leukocytosis likely due to UTI Elevated D-dimer secondary to PE Small bilateral pulmonary emboli Right lower lobe mass versus consolidation Bilateral pulmonary nodules Small bilateral pleural effusions AFib with RVR Intractable nausea, vomiting, and dizziness Right lung biopsy done at [facility] September 2024 Elevated troponins Tobacco use History of hypertension History of hyperlipidemia History of COPD on oxygen History of pneumonia Plan Admit to ICU Heparin drip Amio drip Diuretics Blood pressure management Pain management Antiemetics Duo nebs Fluid restrictions 1200 mL per day Strict I&Os Daily weight Echo Bilateral venous ultrasound PT/PTT Mag level EKG Troponin noted CEA CA 125 LDH Diet Home medications reconciled DVT prophylaxis-patient on heparin drip PUD prophylaxis-PPIs Discussed plan of care with patient, patient's daughter, and nurse Cardiology following manager student services-obtain medical records from [facility] Counseled patient on cessation of tobacco use [id number] Advanced care planning discussed [id number] Behavior change smoking greater than 10 minutes about use of other options also gave option of nicotine patch 10198 Preventive counseling healthy eating habits, physical activity, and regular checkups Plan discussed with: Patient, Daughter Date of Service: Oct 10, 2024 Billing Provider: ALISSA LUNA Common Visit Codes: 92528-[id number] INP/OBS CARE (HIGH) Secondary Visit Codes: [id number] COUNSELING IND, 31194-DIAGR CHNG SMOKING >10MIN, [id number] CARE PLAN 30 MINUTES ALISSA LUNA Oct 10, 2024 17:59
[2024-10-10] MEDS ORDERED: FUROSEMIDE 40 MG/4 ML VIAL IV SCH (18:00)
[2024-10-10] MEDS: AMIODARONE 360mg/200mL PREMIX 200 ML IV SCH (18:28)
[2024-10-10] MEDS: FUROSEMIDE 40 MG/4 ML VIAL IV SCH (18:34)
[2024-10-10] MEDS: AZITHROMYCIN 500MG/ 250ML 250 ML IV SCH (18:34)
[2024-10-10] MEDS: KETOROLAC TROMETH 30 MG/ML 1ML VIAL IV ONE (21:18)
[2024-10-10] MEDS: ONDANSETRON HCL 4 MG/2 ML VIAL IV PRN (21:19)
[2024-10-10] MEDS ORDERED: ATORVASTATIN 20 MG TAB PO SCH (22:00)
[2024-10-10 22:25] LABS: INR 1.16 (0.9-1.15); Partial Thromboplastin Time 53.0 SEC (24.5-34.5); Prothrombin Time 12.1 sec (9.3-11.8)
--- NOTE | 2024-10-10 22:43 | DVHINCON2 ---
Date Seen: Oct 10, 2024 Referring Physician MD Juanita Reason for Consultation NSTEMI History of Present Illness This is a 69-year-old female with a past medical history of unspecified congestive heart failure, paroxysmal atrial fibrillation on Eliquis/amiodarone therapy, COPD, history of pneumonia, hypertension, and dyslipidemia who presented to the emergency room via EMS with a complaint of shortness of breath since yesterday. The patient complains of progressive shortness of breath associated with LOOMIS and PND. Denies orthopnea or bilateral lower extremity edema. She was found by EMS with an oxygen saturation level of 84% on home O2 anterior L/min for which she received a DuoNeb treatment en route to the hospital with improvement in O2 saturations up to 100%. Patient underwent a 12 lead electrocardiogram revealing an atrial fibrillation rhythm with rapid ventricular rate in the 140s bpm and a QTC of 545 ms. Patient endorses not taking her Lasix therapy for approximately 2-3 days secondary to a recent admission at [facility] on 10/05/2024 where she presented with complaints of left rib cage pain undergoing an unspecified biopsy with results pending at this time. The patient also reports an admission to [facility] back in May 2024 where she was diagnosed with CHF and atrial fibrillation. At that time, she reports undergoing a cardiac catheterization without catheter based intervention given normal coronaries. States she has an upcoming follow-up appointment with Cardiology next month. WBC 12.4, D-DIMER 21.30, TROP 1953 > 1743 > 1987. Chest x-ray shows small bilateral pleural effusions and pulmonary vascular congestion. Patient was admitted to the hospital. I am asked to consult on this patient. Past Medical History Past medical history reviewed. No other significant than mentioned above. Past Surgical History Left-sided rib cage biopsy Allergies: Coded Allergies: Aspirin (Verified Allergy, Unknown, 10/10/24) Home Meds Reported Medications Atorvastatin Calcium (ATORVASTATIN CALCIUM) 20 Mg Tab, 1 TAB PO DAILY 10/10/24 Cyclobenzaprine HCl (Cyclobenzaprine Hydrochlo) 10 Mg Tab, 1 TAB PO QAM 10/10/24 Hydralazine Hcl (Hydralazine Hcl) 50 Mg Tab, 1 TAB PO Q6HPRN PRN 10/10/24 Current Medications Current Medications Medications (Trade) Dose Ordered Sig/Naldo Route PRN Reason Start Time Stop Time Status Last Admin Albuterol (Ventolin Medneb) 2.5 mg Q4HR NEB 10/10/24 10:00 10/10/24 13:23 Ipratropium [place] (Atrovent Medneb) 0.5 mg Q4HR NEB 10/10/24 10:00 10/10/24 13:23 Heparin Sodium/ Dextrose 250 ml @ 8 mls/hr Q24H IV 10/10/24 09:30 10/10/24 10:02 Furosemide (Lasix Injection) 40 mg BIDD IV 10/10/24 18:00 Atorvastatin Calcium (Lipitor) 40 mg HS PO 10/10/24 22:00 Empaglifozin (Jardiance) 10 mg DAILY PO 10/11/24 10:00 Losartan Potassium (Cozaar Tablet) 12.5 mg DAILY PO 10/11/24 10:00 Spironolactone (Aldactone) 25 mg DAILY PO 10/11/24 10:00 Review of Systems Constitutional: No symptom reported Ears, Nose, & Throat: No symptom reported Eyes: No symptom reported Neurological: No symptoms reported Pulmonary/Respiratory: SOB, LOOMIS, PND Cardiovascular: No symptom reported Gastrointestinal: No symptom reported Genitourinary: No symptom reported Musculoskeletal: No symptom reported Skin: No symptom reported Psychiatric: No symptom reported Endocrine: No symptom reported Hemotologic/Lymphatic: No symptom reported Vital Signs Vital Signs Date Time Temp Pulse Resp B/P (MAP) Pulse Ox O2 Delivery O2 Flow Rate FiO2 10/10/24 14:51 119 139/84 10/10/24 14:00 30 92 10/10/24 13:24 Nasal Cannula* 3 32 10/10/24 10:24 98.1 98.1 Physical Exam GENERAL: Alert and oriented x 3. No acute distress. EYES: PERRL, EOMI. Anicteric. HENT: Moist mucous membranes. LUNGS: Decreased breath sounds. CARDIOVASCULAR: Irregular rate and rhythm. A-fib RVR. ABDOMEN: Soft, nontender and nondistended. EXTREMITIES: No edema. NEUROLOGIC: No focal neurological deficits. SKIN: Warm, dry. Labs/Diagnostic Data Labs Test 10/10/24 11:30 10/10/24 10:58 10/10/24 08:32 10/10/24 07:30 Range/Units Urine Color Dark-brown Yellow Urine Clarity Ex.turbid Clear Urine pH 5.5 5.0-9.0 Urine Specific [place] 1.029 1.001-1.035 Urine Protein 1+ H Negative Urine Ketones Negative Negative Urine Blood Negative Negative /uL Urine Nitrite Negative Negative Urine Bilirubin Negative Negative Urine Urobilinogen Normal Negative mg/dL Urine Leukocyte Esterase 2+ Negative /uL Urine RBC 5 0 - 4 /hpf Urine Microscopic WBC 27 H 0-5 /HPF Urine Squamous Epithelial Cells Few <5 /hpf Urine Bacteria Few H None Seen /hpf Urine Mucus Many None Seen Urine Glucose Trace Normal mg/dL Troponin I High Sensitivity 1986 *H </=34 ng/L Sodium Level 144 136-145 mmol/L Potassium Level 4.0 3.5-5.1 mmol/L Chloride Level 110 H 98-107 mmol/L Carbon Dioxide Level 24 20-31 mmol/L Anion Gap 10 5-15 Blood Urea Nitrogen 12 9-23 mg/dL Creatinine 0.71 0.550-1.02 mg/dL Glomerular Filtration Rate Calc 91 >90 mL/min BUN/Creatinine Ratio 16.9 10.0-20.0 Serum Glucose 123 H 74-106 mg/dL Calcium Level 9.2 8.7-10.4 mg/dL Magnesium Level 1.8 1.6-2.6 mg/dL Total Bilirubin 0.9 0.2-1.0 mg/dL Aspartate Amino Transferase (AST) 30 13-40 U/L Alanine Aminotransferase (ALT) 13 7-40 U/L Alkaline Phosphatase 120 H 46-116 U/L Total Protein 5.7 5.7-8.2 g/dL Albumin 3.6 3.2-4.8 g/dL White Blood Count 12.4 H 4.4-10.8 10^3/uL Red Blood Count 4.48 4.0-5.20 10^6/uL Hemoglobin 13.6 12.2-16.2 g/dL Hematocrit 42.0 36.0-46.0 % Mean Corpuscular Volume 93.7 80.0-100.0 fL Mean Corpuscular Hemoglobin 30.4 28.0-32.0 pg Mean Corpuscular Hemoglobin Concent 32.5 32.0-36.0 g/dL Red Cell Distribution Width 17.0 H 11.8-14.3 % Platelet Count 180 140-450 10^3/uL Mean Platelet Volume 7.4 6.9-10.8 fL Neutrophils (%) (Auto) 85.0 H 37.0-80.0 % Lymphocytes (%) (Auto) 7.4 L 10.0-50.0 % Monocytes (%) (Auto) 6.4 0.0-12.0 % Eosinophils (%) (Auto) 0.9 0.0-7.0 % Basophils (%) (Auto) 0.3 0.0-2.0 % Neutrophils # (Auto) 10.6 H 1.6-8.6 10 ^3/uL Lymphocytes # (Auto) 0.9 0.4-5.4 10 ^3/uL Monocytes # (Auto) 0.8 0-1.3 10 ^3/uL Eosinophils # (Auto) 0.1 0-0.8 10 ^3/uL Basophils # (Auto) 0 0-0.2 10 ^3/uL Nucleated Red Blood Cells 0.0 % Prothrombin Time 12.2 H 9.3-11.8 sec Prothrombin Time INR 1.17 H 0.9-1.15 Activated Partial Thromboplast Time 28.5 24.5-34.5 SEC D-Dimer, Quantitative 21.30 H 0.0-0.49 mg/L FEU B-Type Natriuretic Peptide 405.04 0-100 pg/mL Thyroid Stimulating Hormone (TSH) 2.59 0.55-4.78 uIU/mL Assessment Acute on chronic decompensated HFrEF, NYHA Class III-IV. Acute hypoxic respiratory failure secondary to above. Paroxysmal atrial fibrillation with rapid ventricular response, uncontrolled rate (on amiodarone/Eliquis therapy). Elevated D-dimer rule out PE/DVT. NSTEMI, likely type 2 secondary to above. Hypertension. Dyslipidemia. Suboptimal medical therapy. Plan/Recommendation I agree with your ongoing assessment and care of plan. Patient has been seen by Kristie Chamberlain NP on my behalf, her and I discussed the plan with the patient. Agree with a CT angio contrast of the chest in addition to bilateral lower extremity DVT given elevated D-dimer. Initiate heparin drip per pharmacy protocol. Obtain a transthoracic echocardiogram to evaluate cardiac function. In the meantime, initiate preload and afterload reduction as tolerated. Strict I&Os, daily weight, fluid restrictions. Initiate GDMT for HFrEF with exception of BB at this time. Initiate amiodarone drip per pharmacy protocol and monitor QTc closely. [id number] Score 4 points. HAS-BLED Score 1 point. Replete electrolytes as necessary, K>4 and Mg>2. Further orders per clinical course. Additional plan as per the hospital course. Plan discussed with: Patient NYHA Physical activity limitations: Class4(Severe)discomfort Date of Service: Oct 10, 2024 Billing Provider: ASHANTI FERNANDEZ MD Cardiology Common Codes: [id number] [facility] ASHANTI FERNANDEZ MD Oct 10, 2024 15:03
[2024-10-11] VITALS (104 sets, daily range): BP systolic 82–128; BP diastolic 42–104; PULSE 85–148; RESP 12–37; TEMP 97.8–98.6; O2SAT 87–100
[2024-10-11 04:06] LABS: INR 1.14 (0.9-1.15); Partial Thromboplastin Time 50.4 SEC (24.5-34.5); Prothrombin Time 11.9 sec (9.3-11.8)
[2024-10-11 04:10] LABS: Alanine Aminotransferase 11 U/L (7-40); Albumin 3.4 g/dL (3.2-4.8); Alkaline Phosphatase 113 U/L (46-116); Anion Gap 11 (5-15); BUN/Creatinine Ratio 12.2 (10.0-20.0); Carbon Dioxide 28 mmol/L (20-31); Chloride 103 mmol/L (98-107); Glucose 93 mg/dL (74-106); Sodium 142 mmol/L (136-145)
[2024-10-11 04:11] LABS: Bilirubin, Total 0.5 mg/dL (0.2-1.0); Hematocrit 36.8 % (36.0-46.0); Hemoglobin 12.4 g/dL (12.2-16.2); Mean Corpuscular Hemoglobin 30.5 pg (28.0-32.0); Mean Corpuscular Volume 90.3 fL (80.0-100.0); Nucleated Red Blood Cells % 0.1 %
[2024-10-11 04:26] LABS: Blood Urea Nitrogen 9 mg/dL (9-23); Calcium 8.7 mg/dL (8.7-10.4); Potassium 3.4 mmol/L (3.5-5.1); Total Protein 5.7 g/dL (5.7-8.2)
[2024-10-11] MEDS: POTASSIUM CHL 20MEQ/100ML 100 ML IV ONE (05:50)
[2024-10-11] MEDS: SPIRONOLACTONE 25 MG TAB PO SCH (09:53)
[2024-10-11] MEDS: PANTOPRAZOLE 40 MG/10 ML VIAL INJ IV SCH (09:53)
[2024-10-11] MEDS: EMPAGLIFLOZIN 10 MG TAB PO SCH (09:54)
[2024-10-11] MEDS: LOSARTAN POTASSIUM 25 MG TAB PO SCH (09:55)
[2024-10-11] MEDS: MORPHINE SULFATE INJ 2 MG/ml SYRG IV PRN (10:04)
--- NOTE | 2024-10-11 12:57 | DVHPN2 ---
Subjective Patient denies any symptoms at this time. Reviewed: Care Plan, H&P, Medications Changes from previous H/P or p: No Changes General: Per HPI Respiratory: Shortness of breath Gastrointestinal: Nausea, Vomiting Objective Vitals Vital Signs Date Time Temp Pulse Resp B/P (MAP) Pulse Ox O2 Delivery O2 Flow Rate FiO2 10/11/24 12:03 106 28 107/55 10/11/24 12:00 95 Nasal Cannula* 4 36 10/11/24 12:00 98.1 98.1 Intake/Output Intake and Output 10/11/24 07:00 Intake Total 1207.91 ml Output Total 3450 ml Balance -2242.09 ml Intake Oral 240 ml IV Total 967.91 ml Output Urine Total 3450 ml General Appearance: Alert, Oriented X3, Cooperative, No acute distress HEENT: Atraumatic, PERRLA Lungs: Clear to auscultation, Normal air movement Cardiovascular: Normal S1, Normal S2, Other (AFib with RVR) Abdomen: Normal bowel sounds, Soft, No tenderness Musculoskeletal: Normal sensory function, Normal motor function Neuro: Normal gait, Normal speech Skin: Dry, Intact Psych/Mental Status: Mental status NL, Mood NL Medications Current Medications Medications Dose Ordered Sig/Naldo Route Start Time Stop Time Status Last Admin Dose Admin Heparin Sodium/ Dextrose 250 ml @ 8 mls/hr Q24H IV 10/10/24 09:30 10/10/24 10:02 8 MLS/HR Furosemide 40 mg BIDD IV 10/10/24 18:00 10/11/24 05:53 40 MG Atorvastatin Calcium 40 mg HS PO 10/10/24 22:00 Cancel Empaglifozin 10 mg DAILY PO 10/11/24 10:00 10/11/24 09:54 10 MG Losartan Potassium 12.5 mg DAILY PO 10/11/24 10:00 10/11/24 09:55 12.5 MG Spironolactone 25 mg DAILY PO 10/11/24 10:00 10/11/24 09:53 25 MG Ceftriaxone Sodium 50 ml @ 100 mls/hr DAILY@09 IV 10/10/24 17:15 10/11/24 08:47 100 MLS/HR Azithromycin 250 ml @ 125 mls/hr DAILY IV 10/10/24 17:15 10/11/24 09:53 125 MLS/HR Albuterol 2.5 mg Q4HR NEB 10/10/24 18:00 10/11/24 10:09 2.5 MG Ipratropium [place] 0.5 mg Q4HR NEB 10/10/24 18:00 10/11/24 10:09 0.5 MG Ondansetron HCl 4 mg Q4HP PRN IV 10/10/24 17:45 10/11/24 10:03 4 MG Acetaminophen 650 mg Q6HP PRN PO 10/10/24 17:45 Nitroglycerin 0.4 mg Q5MINP PRN SL 10/10/24 17:45 Morphine Sulfate 2 mg Q30M PRN IV 10/10/24 17:45 10/11/24 10:04 2 MG Atorvastatin Calcium 20 mg HS PO 10/11/24 22:00 Furosemide 40 mg BIDD IV 10/10/24 18:00 UNV Pantoprazole Sodium 40 mg DAILY IV 10/11/24 10:00 10/11/24 09:53 40 MG Laboratory Results Laboratory Tests 10/11/24 03:05 Chemistry Test 10/11/24 03:05 Albumin 3.4 g/dL (3.2-4.8) Calcium Level 8.7 mg/dL (8.7-10.4) Total Protein 5.7 g/dL (5.7-8.2) Coagulation Test 10/10/24 15:55 10/10/24 21:59 10/11/24 03:05 Prothrombin Time 12.3 sec (9.3-11.8) H 12.1 sec (9.3-11.8) H 11.9 sec (9.3-11.8) H Prothrombin Time INR 1.18 (0.9-1.15) H 1.16 (0.9-1.15) H 1.14 (0.9-1.15) Activated Partial Thromboplast Time 57.5 SEC (24.5-34.5) H 53.0 SEC (24.5-34.5) H 50.4 SEC (24.5-34.5) H LFT Test 10/11/24 03:05 Alanine Aminotransferase (ALT) 11 U/L (7-40) Alkaline Phosphatase 113 U/L (46-116) Aspartate Amino Transferase (AST) 33 U/L (13-40) Total Bilirubin 0.5 mg/dL (0.2-1.0) Urinalysis Test 10/10/24 11:30 Urine Color Dark-brown (Yellow) Urine Clarity Ex.turbid (Clear) Urine pH 5.5 (5.0-9.0) Urine Specific [place] 1.029 (1.001-1.035) Urine Protein 1+ (Negative) H Urine Ketones Negative (Negative) Urine Blood Negative /uL (Negative) Urine Nitrite Negative (Negative) Urine Bilirubin Negative (Negative) Urine Urobilinogen Normal mg/dL (Negative) Urine Leukocyte Esterase 2+ /uL (Negative) Urine RBC 5 /hpf (0 - 4) Urine Microscopic WBC 27 /HPF (0-5) H Urine Squamous Epithelial Cells Few /hpf (<5) Urine Bacteria Few /hpf (None Seen) H Urine Mucus Many (None Seen) Urine Glucose Trace mg/dL (Normal) Blood Gas Results Test 10/10/24 14:48 Arterial Blood pH 7.391 (7.350-7.450) FiO2 % 32.0 Microbiology Microbiology Date/Time Source Procedure Growth Status 10/11/24 00:20 Nose MRSA Screen - Final Complete Labs and/or images reviewed: Labs reviewed by me, Image(s) reviewed by me Assessment/Plan Assessment/Plan Impression: -AFib with RVR -bilateral pulmonary embolism -NSTEMI, probably type 2 -pulmonary mass -acute hypoxic respiratory failure -emphysema -history of anticoagulation with Eliquis. Patient uncertain of primary diagnosis -primary hypertension -acute diastolic heart failure Plan: -cardiology consultation: Recommendations reviewed. Apparently no plans for left heart catheterization. Stop heparin drip. Restart Eliquis -obtain medical records from [facility] regarding recent lung biopsy -pulmonology consultation -empiric antibiotic therapy -start beta-krystian therapy. Blood pressure on lower end. Stop spironolactone, CABRERA inhibitor. -repeat labs in a.m. -continue amiodarone drip given AFib with RVR Critical care time spent with patient discussing and formulating plan of care: 40 minutes. This does not include time spent performing procedures. This medical document was created using an electronic medical record system with [employer] system. Although this document has been carefully reviewed, there may still be some phonetic and typographical errors. These areas are purely typographical due to imperfections of the software programs, and do not reflect any compromise in the patient's medical care. Plan discussed with: Patient, Other (RN) Date of Service: Oct 11, 2024 Billing Provider: JOSE MIGUEL SOMERS NP Common Visit Codes: [id number] CARE 30-74 MIN JOSE MIGUEL SOMERS NP Oct 11, 2024 12:57
--- NOTE | 2024-10-11 17:49 | DVHSR ---
APPROVED REPORT EXAM: Two-dimensional and M-mode echocardiogram with Doppler, color Doppler and Bubble Study. Blood Pressure: 150/102 mmHg INDICATION chf? PE, nstemi, rv strain RISK FACTORS Height: 5'6, Weight: 140 DIMENSIONS LVDd4.9 (3.8-5.7cm)LA (2D) (1.9-4.0cm)Aortic Root3.3 (2.0-3.7cm) LVDs3.7 (2.5-4.0cm)LA (MM) (1.9-4.0cm)Aortic Cusp Exc1.8 (1.5-2.0cm) EF (%) 48.0 (55-70%)Rt. Atrium4.6 (1.9-4.0cm)Asc. Aorta cm IVSd0.7 (0.7-1.1cm)RV (D)5.0 (1.8-2.4cm) PWd0.7 (0.7-1.1cm) Mitral Valve MitralMitral Stenosis E wave1.14m/sMV Mean GR.mmHg A wave0.01m/sMV Peak GR.135mmHg E/A aqffo114.02D MVAcm2 DECEL [id number] 1/2 Timems Aortic Valve Aortic ValveAortic Stenosis V10.90m/Natasha Mean GR.3mmHg V21.13m/Natasha Peak GR.5mmHg LVOT Diameter2.2 (1.8-2.4cm)Doppler AVA3.03cm2 Pulmonic Valve V21.09m/s Tricuspid Valve TR Velocity3.12m/s [id number] Other Information Quality : Technically LimitedRhythm : Technically limited study due to BUBBLE done in subs, pt sitting up and breathing shallow and heavy Conclusion LVEF mildly reduced at 40-45%, patient in afib. Right ventricle moderately dilated , mildly reduced function Right atrium dilated moderaely Mild to moderate mitral regurgitation moderate TR, moderate pulmonary hyeprtension negative bubble study
[2024-10-11] MEDS: HYDROcodone-ACET 5/325MG TAB PO PRN (20:21)
[2024-10-11] MEDS: APIXABAN 5 MG TAB PO SCH (21:36)
[2024-10-11] MEDS: ATORVASTATIN 20 MG TAB PO SCH (21:36)
--- NOTE | 2024-10-11 22:30 | DVHPN2 ---
Progress Note - Dictate Date Seen: Oct 11, 2024 Medical Necessity Reason Pt with a Central, PICC or Fol: No Subjective Patient was seen and evaluated in follow up in the ICU. Patient is on 4 LPM NC. She is c/o SOB. WBC 10.9, K 3.4. MRSA is negative. vital signs Vital Sign Date Time Temp Pulse Resp B/P (MAP) Pulse Ox O2 Delivery O2 Flow Rate FiO2 10/11/24 20:00 136 16 92 Nasal Cannula* 4 36 10/11/24 18:00 105/64 (78) 10/11/24 16:00 98.4 98.4 Total Intake and Output 10/10/24 10/10/24 10/11/24 15:00 23:00 07:00 Intake Total 261.66 ml 483.97 ml 462.28 ml Output Total 2100 ml 1350 ml Balance 261.66 ml -1616.03 ml -887.72 ml medications Current Medications Medications Dose Ordered Sig/Naldo Route Start Time Stop Time Status Last Admin Dose Admin Furosemide 40 mg BIDD IV 10/10/24 18:00 10/11/24 17:11 40 MG Atorvastatin Calcium 40 mg HS PO 10/10/24 22:00 Cancel Empaglifozin 10 mg DAILY PO 10/11/24 10:00 10/11/24 09:54 10 MG Ceftriaxone Sodium 50 ml @ 100 mls/hr DAILY@09 IV 10/10/24 17:15 10/11/24 08:47 100 MLS/HR Azithromycin 250 ml @ 125 mls/hr DAILY IV 10/10/24 17:15 10/11/24 09:53 125 MLS/HR Albuterol 2.5 mg Q4HR NEB 10/10/24 18:00 10/11/24 18:24 2.5 MG Ipratropium [place] 0.5 mg Q4HR NEB 10/10/24 18:00 10/11/24 18:24 0.5 MG Ondansetron HCl 4 mg Q4HP PRN IV 10/10/24 17:45 10/11/24 10:03 4 MG Acetaminophen 650 mg Q6HP PRN PO 10/10/24 17:45 Nitroglycerin 0.4 mg Q5MINP PRN SL 10/10/24 17:45 Morphine Sulfate 2 mg Q30M PRN IV 10/10/24 17:45 10/11/24 10:04 2 MG Atorvastatin Calcium 20 mg HS PO 10/11/24 22:00 Furosemide 40 mg BIDD IV 10/10/24 18:00 UNV Pantoprazole Sodium 40 mg DAILY IV 10/11/24 10:00 10/11/24 09:53 40 MG Apixaban 5 mg BID PO 10/11/24 22:00 Acetaminophen/ Hydrocodone Bitart 1 tab Q6HPRN PRN PO 10/11/24 19:45 10/11/24 20:21 1 TAB objective GENERAL: Alert and oriented x 3. No acute distress. EYES: PERRL, EOMI. Anicteric. HENT: Moist mucous membranes. LUNGS: Decreased breath sounds. CARDIOVASCULAR: Irregular rate and rhythm. A-fib RVR. ABDOMEN: Soft, nontender and nondistended. EXTREMITIES: No edema. NEUROLOGIC: No focal neurological deficits. SKIN: Warm, dry. laboratory and microbiology Laboratory Tests 10/11/24 03:05 Test 10/11/24 03:05 Range/Units Serum Glucose 93 74-106 mg/dL Problem List Acute on chronic decompensated HFrEF, NYHA Class III-IV. Acute hypoxic respiratory failure secondary to above. Paroxysmal atrial fibrillation with rapid ventricular response, uncontrolled rate (on amiodarone/Eliquis therapy). Elevated D-dimer rule out PE/DVT. NSTEMI, likely type 2 secondary to above. Hypertension. Dyslipidemia. Suboptimal medical therapy. Assessment/Plan Continued all current supportive medical care. [place] for pain management. Eliquis. Lipitor. IV antibiotics as ordered. Diuretics with Lasix. GI prophylactics. Additional plan as per the hospital course. Critical care time of 45 minutes provided to include time spent evaluation of patient at bedside, when appropriate patient/family education for diagnosis, treatment plan, review of pertinent medical information and discussion of care with specialty providers and PCP. Plan discussed with: Patient ASHANTI FERNANDEZ MD Oct 11, 2024 21:42
[2024-10-12] VITALS (82 sets, daily range): BP systolic 76–119; BP diastolic 42–86; PULSE 96–151; RESP 11–29; TEMP 97.8–98.5; O2SAT 87–100
[2024-10-12 03:35] LABS: Hematocrit 39.5 % (36.0-46.0); Hemoglobin 13.2 g/dL (12.2-16.2); Mean Corpuscular Hemoglobin 30.2 pg (28.0-32.0); Mean Corpuscular Volume 90.5 fL (80.0-100.0); Nucleated Red Blood Cells % 0.0 %
[2024-10-12 03:45] LABS: Chloride 100 mmol/L (98-107); Sodium 139 mmol/L (136-145)
[2024-10-12 03:46] LABS: Anion Gap 10 (5-15); Calcium 8.7 mg/dL (8.7-10.4); Carbon Dioxide 29 mmol/L (20-31)
[2024-10-12 03:51] LABS: BUN/Creatinine Ratio 12.5 (10.0-20.0); Blood Urea Nitrogen 10 mg/dL (9-23); Glucose 102 mg/dL (74-106)
[2024-10-12 03:54] LABS: INR 1.18 (0.9-1.15); Partial Thromboplastin Time 32.1 SEC (24.5-34.5); Prothrombin Time 12.3 sec (9.3-11.8)
[2024-10-12 04:06] LABS: Potassium 3.1 mmol/L (3.5-5.1)
[2024-10-12] MEDS: POTASSIUM CHL 20MEQ/100ML 100 ML IV SCH (05:09)
[2024-10-12] MEDS: POTASSIUM EFFERVESENT TAB 25 MEQ PO ONE (07:18)
[2024-10-12] MEDS: FUROSEMIDE 40 MG/4 ML VIAL IV ONE ×2 (07:33→11:48)
--- NOTE | 2024-10-12 14:49 | DVHPN2 ---
Assessment/Plan Assessment/Plan progress note 69 F with afib on Eliquis admitted for SOB, found to be hypoxic and in RVR. patient had previous bx for the lung mass in [facility]. seen today during rounds. rate 120s, amio infiltrated, will get midline. hyaluronidase. change Lasix bid to daily. physical exam aox3 PERLLA MMM coarse breath sound s1 s2 tahcy irregular abdomen soft trace LE edema RUE tender infiltrated amio labs ekg imaging reviewed assessment and plan acute hypoxic respiratory failure bilateral PE afib with RVR type 2 [place] demand ischemia from PE? lung mass s/p bx in [facility] b/l PLEF emphysema HTN acute on chronic systolic and diastolic heart failure right heart failure 2/2 PE? pHTN hypokalemia prolonged qtc c/w amio midline hyaluronidase for amio infiltration c/w anticoag follow up lung bx no need for thoracentesis today hold GDMT diet cardiac dvt ppx on full ac full code condition critical prognosis poor 45 minutes critical care time rendered Plan discussed with: Patient My Orders Orders - KRYSTA HERRING MD Procedure Category Date Status Time Insert Midline ORDERS 10/12/24 Transmitted 14:36 Furosemide Injection PHA 10/13/24 In Process (Lasix Injection) 10:00 Basic Metabolic Panel LAB 10/13/24 Verified 04:00 Complete Blood Count LAB 10/13/24 Verified 04:00 Magnesium LAB 10/13/24 Verified 04:00 Phosphorus LAB 10/13/24 Verified 04:00 Date of Service: Oct 12, 2024 Billing Provider: KRYSTA HERRING MD Common Visit Codes: [id number] INP/OBS CARE(HIGH) KRYSTA HERRING MD Oct 12, 2024 14:49
[2024-10-12] MEDS: HYALURONIDASE 150 UNIT/1 ML SUBCUT ONE (15:40)
--- NOTE | 2024-10-12 20:23 | DVHPN2 ---
Progress Note - Dictate Date Seen: Oct 12, 2024 Medical Necessity Reason Pt with a Central, PICC or Fol: No Subjective Patient was seen and evaluated in follow up in the ICU. Patient remains short of breath. Patient is on 4 LPM NC. Patient is diuresing on Lasix. WBC 11.9, K 3.1. Patient's potassium was replaced vital signs Vital Sign Date Time Temp Pulse Resp B/P (MAP) Pulse Ox O2 Delivery O2 Flow Rate FiO2 10/12/24 11:57 15 96 Nasal Cannula* 4 36 10/12/24 11:57 98 10/12/24 11:48 105/60 10/12/24 08:00 97.8 97.8 Total Intake and Output 10/11/24 10/11/24 10/12/24 15:00 23:00 07:00 Intake Total 475 ml 563.30 ml 613.28 ml Output Total 950 ml 1000 ml Balance 475 ml -386.70 ml -386.72 ml medications Current Medications Medications Dose Ordered Sig/Naldo Route Start Time Stop Time Status Last Admin Dose Admin Atorvastatin Calcium 40 mg HS PO 10/10/24 22:00 Cancel Empaglifozin 10 mg DAILY PO 10/11/24 10:00 10/12/24 08:55 10 MG Ceftriaxone Sodium 50 ml @ 100 mls/hr DAILY@09 IV 10/10/24 17:15 10/12/24 08:55 100 MLS/HR Azithromycin 250 ml @ 125 mls/hr DAILY IV 10/10/24 17:15 10/12/24 09:43 125 MLS/HR Albuterol 2.5 mg Q4HR NEB 10/10/24 18:00 10/12/24 09:17 2.5 MG Ipratropium [place] 0.5 mg Q4HR NEB 10/10/24 18:00 10/12/24 09:17 0.5 MG Ondansetron HCl 4 mg Q4HP PRN IV 10/10/24 17:45 10/11/24 10:03 4 MG Acetaminophen 650 mg Q6HP PRN PO 10/10/24 17:45 Nitroglycerin 0.4 mg Q5MINP PRN SL 10/10/24 17:45 Morphine Sulfate 2 mg Q30M PRN IV 10/10/24 17:45 10/11/24 10:04 2 MG Atorvastatin Calcium 20 mg HS PO 10/11/24 22:00 10/11/24 21:36 20 MG Furosemide 40 mg BIDD IV 10/10/24 18:00 UNV Pantoprazole Sodium 40 mg DAILY IV 10/11/24 10:00 10/12/24 08:55 40 MG Apixaban 5 mg BID PO 10/11/24 22:00 10/12/24 08:55 5 MG Acetaminophen/ Hydrocodone Bitart 1 tab Q6HPRN PRN PO 10/11/24 19:45 10/12/24 09:05 1 TAB Furosemide 80 mg DAILY IV 10/13/24 10:00 objective GENERAL: Alert and oriented x 3. No acute distress. EYES: PERRL, EOMI. Anicteric. HENT: Moist mucous membranes. LUNGS: Decreased breath sounds. CARDIOVASCULAR: Irregular rate and rhythm. A-fib RVR. ABDOMEN: Soft, nontender and nondistended. EXTREMITIES: No edema. NEUROLOGIC: No focal neurological deficits. SKIN: Warm, dry. laboratory and microbiology Laboratory Tests 10/12/24 02:48 Test 10/12/24 02:48 Range/Units Serum Glucose 102 74-106 mg/dL Problem List Acute on chronic decompensated HFrEF, NYHA Class III-IV. Acute hypoxic respiratory failure secondary to above. Paroxysmal atrial fibrillation with rapid ventricular response, uncontrolled rate (on amiodarone/Eliquis therapy). Elevated D-dimer rule out PE/DVT. NSTEMI, likely type 2 secondary to above. Hypertension. Dyslipidemia. Suboptimal medical therapy. Assessment/Plan Continued all current supportive medical care. [place] for pain management. Eliquis. Lipitor. IV antibiotics as ordered. Diuretics with Lasix. GI prophylactics. Additional plan as per the hospital course. Critical care time of 45 minutes provided to include time spent evaluation of patient at bedside, when appropriate patient/family education for diagnosis, treatment plan, review of pertinent medical information and discussion of care with specialty providers and PCP. Plan discussed with: Patient ASHANTI FERNANDEZ MD Oct 12, 2024 12:03
[2024-10-13] VITALS (33 sets, daily range): BP systolic 96–109; BP diastolic 59–66; PULSE 95–147; RESP 13–29; TEMP 98.5–98.9; O2SAT 86–100
[2024-10-13 04:08] LABS: Anion Gap 9 (5-15); Carbon Dioxide 30 mmol/L (20-31); Potassium 3.8 mmol/L (3.5-5.1)
[2024-10-13 04:09] LABS: Calcium 8.7 mg/dL (8.7-10.4)
[2024-10-13 04:14] LABS: BUN/Creatinine Ratio 16.0 (10.0-20.0); Blood Urea Nitrogen 12 mg/dL (9-23); Glucose 101 mg/dL (74-106); Magnesium 2.0 mg/dL (1.6-2.6)
[2024-10-13 04:29] LABS: Chloride 97 mmol/L (98-107); Sodium 136 mmol/L (136-145)
[2024-10-13 04:36] LABS: Hematocrit 42.5 % (36.0-46.0); Hemoglobin 14.5 g/dL (12.2-16.2); Mean Corpuscular Hemoglobin 31.5 pg (28.0-32.0); Mean Corpuscular Volume 92.2 fL (80.0-100.0); Nucleated Red Blood Cells % 0.1 %
[2024-10-13] MEDS: FUROSEMIDE 100 MG/10ML VIAL IV SCH (09:07)
--- NOTE | 2024-10-13 11:24 | DVHPN2 ---
Assessment/Plan Assessment/Plan progress note 69 F with afib on Eliquis admitted for SOB, found to be hypoxic and in RVR. patient had previous bx for the lung mass in [facility]. seen today during rounds. breathing improved, titrating down o2. rate still 120s. physical exam aox3 PERLLA MMM coarse breath sound s1 s2 tahcy irregular abdomen soft trace LE edema RUE tender infiltrated amio labs ekg imaging reviewed assessment and plan acute hypoxic respiratory failure bilateral PE afib with RVR type 2 RI demand ischemia from PE? lung mass s/p bx in [facility] b/l PLEF emphysema HTN acute on chronic systolic and diastolic heart failure right heart failure 2/2 PE? pHTN hypokalemia prolonged qtc c/w o2, titrate to keep spo2 90-94% c/w amio midline hyaluronidase for amio infiltration c/w anticoag follow up lung bx no need for thoracentesis today hold GDMT transfer to [facility] d[facility] ppx on full ac full code condition critical prognosis poor 35 minutes critical care time rendered Plan discussed with: Patient My Orders Orders - KRYSTA HERRING MD Procedure Category Date Status Time Insert Midline ORDERS 10/12/24 Transmitted 14:36 Furosemide Injection PHA 10/13/24 In Process (Lasix Injection) 10:00 Transfer Orders XFER 10/12/24 Transmitted 15:01 Date of Service: Oct 13, 2024 Billing Provider: KRYSTA HERRING MD Common Visit Codes: [id number] CARE 30-74 MIN KRYSTA HERRING MD Oct 13, 2024 11:24
--- NOTE | 2024-10-13 19:45 | DVHPN2 ---
Progress Note - Dictate Date Seen: Oct 13, 2024 Medical Necessity Reason Pt with a Central, PICC or Fol: No Subjective Patient was seen and evaluated in follow up in the ICU. Patient's SOB is slowly improving. Patient remains on 4 LPM NC. Pending downgrade to telemetry. WBC 13.5. vital signs Vital Sign Date Time Temp Pulse Resp B/P (MAP) Pulse Ox O2 Delivery O2 Flow Rate FiO2 10/13/24 12:16 111 10/13/24 12:16 17 92 Nasal Cannula* 4 36 10/13/24 09:14 106/66 10/13/24 08:00 98.5 98.5 Total Intake and Output 10/12/24 10/12/24 10/13/24 15:00 23:00 07:00 Intake Total 905.28 ml 852.62 ml 183.28 ml Output Total 1400 ml 575 ml Balance 905.28 ml -547.38 ml -391.72 ml medications Current Medications Medications Dose Ordered Sig/Naldo Route Start Time Stop Time Status Last Admin Dose Admin Atorvastatin Calcium 40 mg HS PO 10/10/24 22:00 Cancel Empaglifozin 10 mg DAILY PO 10/11/24 10:00 10/13/24 09:07 10 MG Ceftriaxone Sodium 50 ml @ 100 mls/hr DAILY@09 IV 10/10/24 17:15 10/13/24 09:07 100 MLS/HR Azithromycin 250 ml @ 125 mls/hr DAILY IV 10/10/24 17:15 10/13/24 10:51 125 MLS/HR Albuterol 2.5 mg Q4HR NEB 10/10/24 18:00 10/13/24 09:06 2.5 MG Ipratropium [place] 0.5 mg Q4HR NEB 10/10/24 18:00 10/13/24 09:06 0.5 MG Ondansetron HCl 4 mg Q4HP PRN IV 10/10/24 17:45 10/11/24 10:03 4 MG Acetaminophen 650 mg Q6HP PRN PO 10/10/24 17:45 Nitroglycerin 0.4 mg Q5MINP PRN SL 10/10/24 17:45 Morphine Sulfate 2 mg Q30M PRN IV 10/10/24 17:45 10/11/24 10:04 2 MG Atorvastatin Calcium 20 mg HS PO 10/11/24 22:00 10/12/24 22:20 20 MG Furosemide 40 mg BIDD IV 10/10/24 18:00 UNV Pantoprazole Sodium 40 mg DAILY IV 10/11/24 10:00 10/13/24 09:06 40 MG Apixaban 5 mg BID PO 10/11/24 22:00 10/13/24 09:07 5 MG Acetaminophen/ Hydrocodone Bitart 1 tab Q6HPRN PRN PO 10/11/24 19:45 10/13/24 05:38 1 TAB Furosemide 80 mg DAILY IV 10/13/24 10:00 10/13/24 09:07 80 MG objective GENERAL: Alert and oriented x 3. No acute distress. EYES: PERRL, EOMI. Anicteric. HENT: Moist mucous membranes. LUNGS: Decreased breath sounds. CARDIOVASCULAR: Irregular rate and rhythm. A-fib RVR. ABDOMEN: Soft, nontender and nondistended. EXTREMITIES: No edema. NEUROLOGIC: No focal neurological deficits. SKIN: Warm, dry. laboratory and microbiology Laboratory Tests 10/13/24 02:59 Test 10/13/24 02:59 Range/Units Serum Glucose 101 74-106 mg/dL Problem List Acute on chronic decompensated HFrEF, NYHA Class III-IV. Acute hypoxic respiratory failure secondary to above. Paroxysmal atrial fibrillation with rapid ventricular response, uncontrolled rate (on amiodarone/Eliquis therapy). Elevated D-dimer rule out PE/DVT. NSTEMI, likely type 2 secondary to above. Hypertension. Dyslipidemia. Suboptimal medical therapy. Assessment/Plan Continued all current supportive medical care. [place] for pain management. Eliquis. Lipitor. IV antibiotics as ordered. Diuretics with Lasix. GI prophylactics. Additional plan as per the hospital course. Critical care time of 45 minutes provided to include time spent evaluation of patient at bedside, when appropriate patient/family education for diagnosis, treatment plan, review of pertinent medical information and discussion of care with specialty providers and PCP. Plan discussed with: Patient ASHANTI FERNANDEZ MD Oct 13, 2024 12:22
[2024-10-13] MEDS: HYALURONIDASE 150 UNIT/1 ML SUBCUT ONE (20:44)
--- NOTE | 2024-10-13 22:49 | DVHPN2 ---
Progress Note - Dictate Date Seen: Oct 13, 2024 Medical Necessity Reason Pt with a Central, PICC or Fol: Yes The following are medically ne: Rojas Catheter Reason for rojas catheter: Strict I&O Subjective Patient seen and examined at bedside. On supplemental oxygen Overnight events reviewed. HPI: A 69-year-old woman with past medical history of lung mass, COPD, pneumonia, CHF, AFib, hypertension, and hyperlipidemia who presented to ED via EMS on 10/10/24 with shortness of breath with nausea, vomiting, and dizziness since 4:00 AM on day of presentation. Patient admits to being noncompliant with her medications. Pt uses 3 L of oxygen via nasal cannula continuously. Of note, she was at [facility] recently on 10/05/24 and had a lung biopsy done for a right lower lobe mass. Patient was admitted for further care, and pulmonary consultation was requested for evaluation and management of acute hypoxic respiratory failure and pulmonary embolism. Review of Systems: 14-point review of systems negative unless otherwise noted above. Past Medical History: COPD, pneumonia, CHF, AFib, hypertension, and hyperlipidemia Past Surgical History: Other (Right lung biopsy at [facility] last month) Medications: Reviewed. Allergies: Aspirin. Family History: Cancer, Other (Mom with lung cancer) Social History: Former smoker. She used to smoke 3/4 pack of cigarettes per day but quit recently.. No alcohol or illicit drug use. vital signs Vital Sign Date Time Temp Pulse Resp B/P (MAP) Pulse Ox O2 Delivery O2 Flow Rate FiO2 10/13/24 21:52 147 20 95 10/13/24 21:44 Nasal Cannula* 5 40 10/13/24 16:00 102/63 (76) 10/13/24 12:00 98.9 98.9 Total Intake and Output 10/12/24 10/12/24 10/13/24 15:00 23:00 07:00 Intake Total 905.28 ml 852.62 ml 183.28 ml Output Total 1400 ml 575 ml Balance 905.28 ml -547.38 ml -391.72 ml medications Current Medications Medications Dose Ordered Sig/Naldo Route Start Time Stop Time Status Last Admin Dose Admin Atorvastatin Calcium 40 mg HS PO 10/10/24 22:00 Cancel Empaglifozin 10 mg DAILY PO 10/11/24 10:00 10/13/24 09:07 10 MG Ceftriaxone Sodium 50 ml @ 100 mls/hr DAILY@09 IV 10/10/24 17:15 10/13/24 09:07 100 MLS/HR Azithromycin 250 ml @ 125 mls/hr DAILY IV 10/10/24 17:15 10/13/24 10:51 125 MLS/HR Albuterol 2.5 mg Q4HR NEB 10/10/24 18:00 10/13/24 19:11 2.5 MG Ipratropium [place] 0.5 mg Q4HR NEB 10/10/24 18:00 10/13/24 19:11 0.5 MG Ondansetron HCl 4 mg Q4HP PRN IV 10/10/24 17:45 10/11/24 10:03 4 MG Acetaminophen 650 mg Q6HP PRN PO 10/10/24 17:45 Nitroglycerin 0.4 mg Q5MINP PRN SL 10/10/24 17:45 Morphine Sulfate 2 mg Q30M PRN IV 10/10/24 17:45 10/11/24 10:04 2 MG Atorvastatin Calcium 20 mg HS PO 10/11/24 22:00 10/13/24 21:19 20 MG Furosemide 40 mg BIDD IV 10/10/24 18:00 UNV Pantoprazole Sodium 40 mg DAILY IV 10/11/24 10:00 10/13/24 09:06 40 MG Apixaban 5 mg BID PO 10/11/24 22:00 10/13/24 21:18 5 MG Acetaminophen/ Hydrocodone Bitart 1 tab Q6HPRN PRN PO 10/11/24 19:45 10/13/24 20:29 1 TAB Furosemide 80 mg DAILY IV 10/13/24 10:00 10/13/24 09:07 80 MG objective Gen.: Patient lying in bed in no apparent distress. On supplemental oxygen. Head: Normocephalic, atraumatic. Eyes: EOMI/PERRLA. Ears: Normal hearing. Normal anatomy. Neck/trachea: Trachea midline, supple. Nose: Normal external anatomy. Mouth: Moist mucous membranes. Chest: Decreased air entry bilaterally. No wheezing or rhonchi. Cardiovascular: Positive S1, positive S2. Regular rate and rhythm. Abdomen: Positive bowel sounds in all 4 quadrants. Soft, non-tender, non- distended. : Deferred. Rectal: Deferred. Skin: Warm, dry. Intact. Extremities: 2+ radial pulses bilaterally. No lower extremity edema. Neuro: Awake, alert, oriented x3. No gross motor or sensory deficits. Cranial nerves II through XII intact. Gait not assessed. laboratory and microbiology Laboratory Tests 10/13/24 02:59 Test 10/13/24 02:59 Range/Units Serum Glucose 101 74-106 mg/dL Assessment/Plan Impression: Acute hypoxic respiratory failure Dependence on supplemental oxygen Pulmonary embolism AFib with RVR Pulmonary hypertension, RVSP 69 mmHg Hx of nicotine dependence Plan: Supplemental oxygen 4 LPM NC Titrate to keep O2 sats above 92%. Taper O2 as tolerated. On Eliquis Off heparin drip. On amiodarone drip for AFib with RVR. Follow up Echocardiogram, LVEF of 40% to 45% Follow up Cardiology recs Continue bronchodilators Continue abx Incentive spirometry Protonix for GI ppx Diurese with Lasix Monitor renal function. Monitor electrolytes. Supplement as necessary. Monitor ins and outs. Prognosis: Poor given patient's multiple co-morbidities. Rest of plan per hospitalist and other consultants. Thank you Dr. Branham for allowing me to participate in this patient's care. Further recommendations will depend on the patient's clinical course. Please do not hesitate to contact me if you have any questions or concerns. This medical document was created using an electronic medical record system with [employer] dictation system. Although these documentations are being carefully reviewed, there may still be some phonetic and typographical changes. The errors are purely typographical, due to imperfection on the software program, and do not reflect any compromise in the patient's medical care. Dietary Evaluation Review Comments: 1) Ensure enlive 240ml BID 2) Continue current POC Expected Outcomes/Goals: FU 3-5 days to meet at least 75% estimated needs Plan discussed with: Patient, Other (RUTH Schmidt) FIDEL COLEMAN MD Oct 13, 2024 22:49
[2024-10-14] VITALS (20 sets, daily range): BP systolic 94–121; BP diastolic 59–83; PULSE 91–139; RESP 16–22; TEMP 97.7–98.1; O2SAT 90–100
[2024-10-14] MEDS: MELATONIN 5 MG TAB PO ONE (02:06)
[2024-10-14] MEDS: ALBUTEROL SULF 2.5 MG/0.5ML(0.5%) NEB SOLN ONE (06:33)
[2024-10-14] MEDS: IPRATROPIUM BROM 0.5 MG/2.5ML INH SOL ONE (06:33)
[2024-10-14 07:08] LABS: Hematocrit 40.2 % (36.0-46.0); Hemoglobin 13.5 g/dL (12.2-16.2); Mean Corpuscular Hemoglobin 30.2 pg (28.0-32.0); Mean Corpuscular Volume 89.9 fL (80.0-100.0); Nucleated Red Blood Cells % 0.1 %
[2024-10-14 07:15] LABS: Anion Gap 11 (5-15); Carbon Dioxide 30 mmol/L (20-31); Potassium 3.5 mmol/L (3.5-5.1); Sodium 137 mmol/L (136-145)
[2024-10-14 07:16] LABS: Calcium 9.5 mg/dL (8.7-10.4)
[2024-10-14 07:21] LABS: BUN/Creatinine Ratio 14.5 (10.0-20.0); Blood Urea Nitrogen 10 mg/dL (9-23); Glucose 84 mg/dL (74-106)
[2024-10-14 07:22] LABS: Chloride 96 mmol/L (98-107)
[2024-10-14] MEDS ORDERED: HYDR-4798 PO (12:53)
--- NOTE | 2024-10-14 14:52 | DVHPN2 ---
Assessment/Plan Assessment/Plan progress note 69 F with afib on Eliquis admitted for SOB, found to be hypoxic and in RVR. patient had previous bx for the lung mass in [facility]. seen today during rounds. breathing improved, titrating down o2. still on amio drip. adjusted pain mgmt physical exam aox3 PERLLA MMM coarse breath sound s1 s2 tahcy irregular abdomen soft trace LE edema RUE tender infiltrated amio labs ekg imaging reviewed assessment and plan acute hypoxic respiratory failure bilateral PE afib with RVR type 2 LA demand ischemia from PE? lung mass s/p bx in [facility] b/l PLEF emphysema HTN acute on chronic systolic and diastolic heart failure right heart failure 2/2 PE? pHTN hypokalemia prolonged qtc c/w o2, titrate to keep spo2 90-94% c/w amio midline hyaluronidase for amio infiltration c/w anticoag follow up lung bx no need for thoracentesis today hold GDMT transfer to [facility] cardiac dvt ppx on full ac full code condition critical prognosis poor Plan discussed with: Patient Date of Service: Oct 14, 2024 Billing Provider: KRYSTA HERRING MD Common Visit Codes: [id number] INP/OBS CARE(HIGH) KRYSTA HERRING MD Oct 14, 2024 14:52
[2024-10-14] MEDS: HYDROcodone-ACET 10/325MG TAB PO PRN (20:56)
[2024-10-14] MEDS: DOCUSATE SOD 100 MG CAP PO PRN (21:10)
--- NOTE | 2024-10-14 22:15 | DVHPN2 ---
Progress Note - Dictate Date Seen: Oct 14, 2024 Medical Necessity Reason Pt with a Central, PICC or Fol: Yes The following are medically ne: Rojas Catheter Reason for rojas catheter: Strict I&O Subjective Patient was seen and evaluated in follow up. Patient was downgraded to telemetry. Patient is on 4 LPM NC, report improvement in SOB. Patient reports having back pain. WBC 11. Telemetry reviewed. vital signs Vital Sign Date Time Temp Pulse Resp B/P (MAP) Pulse Ox O2 Delivery O2 Flow Rate FiO2 10/14/24 13:47 97 Nasal Cannula 4.0 10/14/24 13:47 112 16 10/14/24 13:47 36 10/14/24 10:00 94/72 10/14/24 09:00 98.1 98.1 Total Intake and Output 10/13/24 10/13/24 10/14/24 15:00 23:00 07:00 Intake Total 433.28 ml 516.66 ml 200 ml Output Total 1650 ml Balance 433.28 ml -1133.34 ml 200 ml medications Current Medications Medications Dose Ordered Sig/Naldo Route Start Time Stop Time Status Last Admin Dose Admin Atorvastatin Calcium 40 mg HS PO 10/10/24 22:00 Cancel Empaglifozin 10 mg DAILY PO 10/11/24 10:00 10/14/24 10:43 10 MG Ceftriaxone Sodium 50 ml @ 100 mls/hr DAILY@09 IV 10/10/24 17:15 10/14/24 09:06 100 MLS/HR Azithromycin 250 ml @ 125 mls/hr DAILY IV 10/10/24 17:15 10/14/24 10:43 125 MLS/HR Albuterol 2.5 mg Q4HR NEB 10/10/24 18:00 10/14/24 13:47 2.5 MG Ipratropium [place] 0.5 mg Q4HR NEB 10/10/24 18:00 10/14/24 13:47 0.5 MG Ondansetron HCl 4 mg Q4HP PRN IV 10/10/24 17:45 10/11/24 10:03 4 MG Acetaminophen 650 mg Q6HP PRN PO 10/10/24 17:45 Nitroglycerin 0.4 mg Q5MINP PRN SL 10/10/24 17:45 Morphine Sulfate 2 mg Q30M PRN IV 10/10/24 17:45 10/11/24 10:04 2 MG Atorvastatin Calcium 20 mg HS PO 10/11/24 22:00 10/13/24 21:19 20 MG Furosemide 40 mg BIDD IV 10/10/24 18:00 UNV Pantoprazole Sodium 40 mg DAILY IV 10/11/24 10:00 10/14/24 09:06 40 MG Apixaban 5 mg BID PO 10/11/24 22:00 10/14/24 09:06 5 MG Acetaminophen/ Hydrocodone Bitart 1 tab Q6HPRN PRN PO 10/11/24 19:45 10/14/24 09:06 1 TAB Furosemide 80 mg DAILY IV 10/13/24 10:00 10/13/24 09:07 80 MG objective GENERAL: Alert and oriented x 3. No acute distress. EYES: PERRL, EOMI. Anicteric. HENT: Moist mucous membranes. LUNGS: Decreased breath sounds. CARDIOVASCULAR: Irregular rate and rhythm. A-fib RVR. ABDOMEN: Soft, nontender and nondistended. EXTREMITIES: No edema. NEUROLOGIC: No focal neurological deficits. SKIN: Warm, dry. laboratory and microbiology Laboratory Tests 10/14/24 05:41 Test 10/14/24 05:41 Range/Units Serum Glucose 84 74-106 mg/dL Problem List Acute on chronic decompensated HFrEF, NYHA Class III-IV. Acute hypoxic respiratory failure secondary to above. Paroxysmal atrial fibrillation with rapid ventricular response, uncontrolled rate (on amiodarone/Eliquis therapy). Elevated D-dimer rule out PE/DVT. NSTEMI, likely type 2 secondary to above. Hypertension. Dyslipidemia. Suboptimal medical therapy. Assessment/Plan Continued all current supportive medical care. [place] for pain management. Eliquis. Lipitor. IV antibiotics as ordered. Diuretics with Lasix. GI prophylactics. Amiodarone. Additional plan as per the hospital course. Dietary Evaluation Review Comments: 1) Ensure enlive 240ml BID 2) Continue current POC Expected Outcomes/Goals: FU 3-5 days to meet at least 75% estimated needs Plan discussed with: Patient ASHANTI FERNANDEZ MD Oct 14, 2024 13:53
--- NOTE | 2024-10-14 22:45 | DVHPN2 ---
Progress Note - Dictate Date Seen: Oct 14, 2024 Medical Necessity Reason Pt with a Central, PICC or Fol: Yes The following are medically ne: Rojas Catheter Reason for rojas catheter: Strict I&O Subjective Patient seen and examined at bedside. On supplemental oxygen Overnight events reviewed. HPI: A 69-year-old woman with past medical history of lung mass, COPD, pneumonia, CHF, AFib, hypertension, and hyperlipidemia who presented to ED via EMS on 10/10/24 with shortness of breath with nausea, vomiting, and dizziness since 4:00 AM on day of presentation. Patient admits to being noncompliant with her medications. Pt uses 3 L of oxygen via nasal cannula continuously. Of note, she was at [facility] recently on 10/05/24 and had a lung biopsy done for a right lower lobe mass. Patient was admitted for further care, and pulmonary consultation was requested for evaluation and management of acute hypoxic respiratory failure and pulmonary embolism. Review of Systems: 14-point review of systems negative unless otherwise noted above. Past Medical History: COPD, pneumonia, CHF, AFib, hypertension, and hyperlipidemia Past Surgical History: Other (Right lung biopsy at [facility] last month) Medications: Reviewed. Allergies: Aspirin. Family History: Cancer, Other (Mom with lung cancer) Social History: Former smoker. She used to smoke 3/4 pack of cigarettes per day but quit recently.. No alcohol or illicit drug use. vital signs Vital Sign Date Time Temp Pulse Resp B/P (MAP) Pulse Ox O2 Delivery O2 Flow Rate FiO2 10/14/24 20:00 Nasal Cannula* 4 36 10/14/24 19:39 94 10/14/24 17:00 97.8 114 20 116/74 (88) 97.8 Total Intake and Output 10/13/24 10/13/24 10/14/24 15:00 23:00 07:00 Intake Total 433.28 ml 516.66 ml 200 ml Output Total 1650 ml Balance 433.28 ml -1133.34 ml 200 ml medications Current Medications Medications Dose Ordered Sig/Naldo Route Start Time Stop Time Status Last Admin Dose Admin Atorvastatin Calcium 40 mg HS PO 10/10/24 22:00 Cancel Empaglifozin 10 mg DAILY PO 10/11/24 10:00 10/14/24 10:43 10 MG Ceftriaxone Sodium 50 ml @ 100 mls/hr DAILY@09 IV 10/10/24 17:15 10/14/24 09:06 100 MLS/HR Azithromycin 250 ml @ 125 mls/hr DAILY IV 10/10/24 17:15 10/14/24 10:43 125 MLS/HR Albuterol 2.5 mg Q4HR NEB 10/10/24 18:00 10/14/24 22:33 2.5 MG Ipratropium [place] 0.5 mg Q4HR NEB 10/10/24 18:00 10/14/24 22:33 0.5 MG Ondansetron HCl 4 mg Q4HP PRN IV 10/10/24 17:45 10/11/24 10:03 4 MG Acetaminophen 650 mg Q6HP PRN PO 10/10/24 17:45 Nitroglycerin 0.4 mg Q5MINP PRN SL 10/10/24 17:45 Morphine Sulfate 2 mg Q30M PRN IV 10/10/24 17:45 10/11/24 10:04 2 MG Atorvastatin Calcium 20 mg HS PO 10/11/24 22:00 10/14/24 20:55 20 MG Furosemide 40 mg BIDD IV 10/10/24 18:00 UNV Pantoprazole Sodium 40 mg DAILY IV 10/11/24 10:00 10/14/24 09:06 40 MG Apixaban 5 mg BID PO 10/11/24 22:00 10/14/24 20:55 5 MG Furosemide 80 mg DAILY IV 10/13/24 10:00 10/13/24 09:07 80 MG Acetaminophen/ Hydrocodone Bitart 1 tab Q8HP PRN PO 10/14/24 15:00 10/14/24 20:56 1 TAB Docusate Sodium 100 mg BIDPRN PRN PO 10/14/24 21:00 objective Gen.: Patient lying in bed in no apparent distress. On supplemental oxygen. Head: Normocephalic, atraumatic. Eyes: EOMI/PERRLA. Ears: Normal hearing. Normal anatomy. Neck/trachea: Trachea midline, supple. Nose: Normal external anatomy. Mouth: Moist mucous membranes. Chest: Decreased air entry bilaterally. No wheezing or rhonchi. Cardiovascular: Positive S1, positive S2. Regular rate and rhythm. Abdomen: Positive bowel sounds in all 4 quadrants. Soft, non-tender, non- distended. : Deferred. Rectal: Deferred. Skin: Warm, dry. Intact. Extremities: 2+ radial pulses bilaterally. No lower extremity edema. Neuro: Awake, alert, oriented x3. No gross motor or sensory deficits. Cranial nerves II through XII intact. Gait not assessed. laboratory and microbiology Laboratory Tests 10/14/24 05:41 Test 10/14/24 05:41 Range/Units Serum Glucose 84 74-106 mg/dL Assessment/Plan Impression: Acute hypoxic respiratory failure Dependence on supplemental oxygen Pulmonary embolism AFib with RVR Pulmonary hypertension, RVSP 69 mmHg Hx of nicotine dependence Events: Remains on supplemental oxygen, 4 LPM NC Almost back to baseline. Continue to taper O2 as tolerated Continue bronchodilators - on albuterol Continue antibiotics Continue Eliquis BID for pulmonary embolism Pain control - on [place] Avoid oversedation S/p lung biopsy Follow up results from [facility] Labs and imaging reviewed. Rest of plan as noted below. Plan: Supplemental oxygen Titrate to keep O2 sats above 92%. Taper O2 as tolerated. On Eliquis Off heparin drip. Follow up Echocardiogram, LVEF of 40% to 45% Follow up Cardiology recs Continue bronchodilators Continue abx Incentive spirometry Protonix for GI ppx Monitor renal function. Monitor electrolytes. Supplement as necessary. Monitor ins and outs. Prognosis: Poor given patient's multiple co-morbidities. Rest of plan per hospitalist and other consultants. Thank you Dr. Branham for allowing me to participate in this patient's care. Further recommendations will depend on the patient's clinical course. Please do not hesitate to contact me if you have any questions or concerns. This medical document was created using an electronic medical record system with [employer] dictation system. Although these documentations are being carefully reviewed, there may still be some phonetic and typographical changes. The errors are purely typographical, due to imperfection on the software program, and do not reflect any compromise in the patient's medical care. Dietary Evaluation Review Comments: 1) Ensure enlive 240ml BID 2) Continue current POC Expected Outcomes/Goals: FU 3-5 days to meet at least 75% estimated needs Plan discussed with: Patient, Other (RUTH Bueno) FIDEL COLEMAN MD Oct 14, 2024 22:45
[2024-10-15] VITALS (21 sets, daily range): BP systolic 94–127; BP diastolic 54–64; PULSE 65–126; RESP 16–20; TEMP 97.6–98.3; O2SAT 90–100
[2024-10-15 07:23] LABS: Hematocrit 39.5 % (36.0-46.0); Hemoglobin 13.6 g/dL (12.2-16.2); Mean Corpuscular Hemoglobin 30.7 pg (28.0-32.0); Mean Corpuscular Volume 89.4 fL (80.0-100.0); Nucleated Red Blood Cells % 0.0 %
[2024-10-15 07:34] LABS: Anion Gap 8 (5-15); Calcium 9.6 mg/dL (8.7-10.4); Carbon Dioxide 30 mmol/L (20-31); Potassium 3.8 mmol/L (3.5-5.1)
[2024-10-15 07:40] LABS: BUN/Creatinine Ratio 18.8 (10.0-20.0); Blood Urea Nitrogen 12 mg/dL (9-23)
[2024-10-15 07:41] LABS: Chloride 96 mmol/L (98-107); Glucose 109 mg/dL (74-106); Sodium 134 mmol/L (136-145)
--- NOTE | 2024-10-15 16:28 | DVHPN2 ---
Subjective Patient denies any symptoms at this time. Reviewed: Care Plan, H&P, Medications Changes from previous H/P or p: No Changes General: Per HPI Respiratory: Shortness of breath Gastrointestinal: Nausea, Vomiting Objective Vitals Vital Signs Date Time Temp Pulse Resp B/P (MAP) Pulse Ox O2 Delivery O2 Flow Rate FiO2 10/15/24 14:09 67 16 100 10/15/24 14:03 Nasal Cannula 3.0 10/15/24 14:03 32 10/15/24 13:00 98.2 108/60 (76) 98.2 Intake/Output Intake and Output 10/15/24 07:00 Intake Total 1457 ml Output Total 700 ml Balance 757 ml Intake Oral 760 ml IV Total 697 ml Output Urine Total 700 ml # Voids 3 General Appearance: Alert, Oriented X3, Cooperative, No acute distress HEENT: Atraumatic, PERRLA Lungs: Clear to auscultation, Normal air movement Cardiovascular: Normal S1, Normal S2, Other (AFib with RVR) Abdomen: Normal bowel sounds, Soft, No tenderness Musculoskeletal: Normal sensory function, Normal motor function Neuro: Normal gait, Normal speech Skin: Dry, Intact Psych/Mental Status: Mental status NL, Mood NL Medications Current Medications Medications Dose Ordered Sig/Naldo Route Start Time Stop Time Status Last Admin Dose Admin Atorvastatin Calcium 40 mg HS PO 10/10/24 22:00 Cancel Empaglifozin 10 mg DAILY PO 10/11/24 10:00 10/15/24 09:17 10 MG Ceftriaxone Sodium 50 ml @ 100 mls/hr DAILY@09 IV 10/10/24 17:15 10/15/24 09:17 100 MLS/HR Azithromycin 250 ml @ 125 mls/hr DAILY IV 10/10/24 17:15 10/15/24 10:05 125 MLS/HR Albuterol 2.5 mg Q4HR NEB 10/10/24 18:00 10/15/24 14:03 2.5 MG Ipratropium [place] 0.5 mg Q4HR NEB 10/10/24 18:00 10/15/24 14:03 0.5 MG Ondansetron HCl 4 mg Q4HP PRN IV 10/10/24 17:45 10/11/24 10:03 4 MG Acetaminophen 650 mg Q6HP PRN PO 10/10/24 17:45 Nitroglycerin 0.4 mg Q5MINP PRN SL 10/10/24 17:45 Morphine Sulfate 2 mg Q30M PRN IV 10/10/24 17:45 10/11/24 10:04 2 MG Atorvastatin Calcium 20 mg HS PO 10/11/24 22:00 10/14/24 20:55 20 MG Furosemide 40 mg BIDD IV 10/10/24 18:00 UNV Pantoprazole Sodium 40 mg DAILY IV 10/11/24 10:00 10/15/24 09:17 40 MG Apixaban 5 mg BID PO 10/11/24 22:00 10/15/24 09:17 5 MG Furosemide 80 mg DAILY IV 10/13/24 10:00 10/15/24 09:18 80 MG Acetaminophen/ Hydrocodone Bitart 1 tab Q8HP PRN PO 10/14/24 15:00 10/15/24 06:03 1 TAB Docusate Sodium 100 mg BIDPRN PRN PO 10/14/24 21:00 10/15/24 12:26 100 MG Laboratory Results Laboratory Tests 10/15/24 06:46 Chemistry Test 10/15/24 06:46 Calcium Level 9.6 mg/dL (8.7-10.4) Urinalysis Test 10/10/24 11:30 Urine Color Dark-brown (Yellow) Urine Clarity Ex.turbid (Clear) Urine pH 5.5 (5.0-9.0) Urine Specific [place] 1.029 (1.001-1.035) Urine Protein 1+ (Negative) H Urine Ketones Negative (Negative) Urine Blood Negative /uL (Negative) Urine Nitrite Negative (Negative) Urine Bilirubin Negative (Negative) Urine Urobilinogen Normal mg/dL (Negative) Urine Leukocyte Esterase 2+ /uL (Negative) Urine RBC 5 /hpf (0 - 4) Urine Microscopic WBC 27 /HPF (0-5) H Urine Squamous Epithelial Cells Few /hpf (<5) Urine Bacteria Few /hpf (None Seen) H Urine Mucus Many (None Seen) Urine Glucose Trace mg/dL (Normal) Microbiology Microbiology Date/Time Source Procedure Growth Status 10/11/24 00:20 Nose MRSA Screen - Final Complete Labs and/or images reviewed: Labs reviewed by me, Image(s) reviewed by me Assessment/Plan Assessment/Plan Impression: -AFib with RVR -bilateral pulmonary embolism -NSTEMI, probably type 2 -pulmonary mass -acute hypoxic respiratory failure -emphysema -history of anticoagulation with Eliquis. Patient uncertain of primary diagnosis -primary hypertension -acute diastolic heart failure Plan: Events: Patient continues to be on amiodarone drip. AFib is mostly controlled. Biopsy results are pending. -stop amiodarone drip. Transitioned to amiodarone p.o.. Add metoprolol tartrate 25 mg p.o. twice a day -obtain medical records from [facility] regarding recent lung biopsy -pulmonology consultation : Recommendations reviewed -continue Rocephin, stop azithromycin -bowel regimen -repeat labs in a.m. Total time spent with patient discussing and formulating plan of care: 35 minutes. This medical document was created using an electronic medical record system with [employer] dictation system. Although this document has been carefully reviewed, there may still be some phonetic and typographical errors. These areas are purely typographical due to imperfections of the software programs, and do not reflect any compromise in the patient's medical care. Plan discussed with: Patient, Other (RN) My Orders Orders - JOSE MIGUEL SOMERS NP Procedure Category Date Status Time Basic Metabolic Panel LAB 10/16/24 Verified 04:00 Chest Portable XY 10/16/24 Verified 04:00 Amiodarone Tablet PHA 10/15/24 Verified (Cordarone Tablet) 22:00 Metoprolol Tartrate PHA 10/15/24 Verified Tablet (Lopressor Ta 22:00 Lactulose Oral PHA 10/15/24 Verified 18:00 Communication Order ORDERS 10/15/24 Verified 16:21 Oxycodone W/ Acet PHA 10/15/24 Verified 5/325mg Tab (Percocet 16:30 Ketorolac Injection PHA 10/15/24 Verified (Toradol Injection) 16:30 Date of Service: Oct 15, 2024 Billing Provider: JOSE MIGUEL SOMERS NP Common Visit Codes: [id number] INP/OBS CARE(HIGH) JOSE MIGUEL SOMERS NP Oct 15, 2024 16:28
[2024-10-15] MEDS: LACTULOSE 20Gm/30ML SOLN PO SCH (17:26)
[2024-10-15] MEDS: KETOROLAC TROMETH 30 MG/ML 1ML VIAL IV ONE (17:26)
[2024-10-15] MEDS: METOPROLOL TARTRATE 25 MG TAB PO SCH (21:15)
[2024-10-15] MEDS: AMIODARONE HCL 200 MG TAB PO SCH (21:15)
--- NOTE | 2024-10-15 21:55 | DVHPN2 ---
Progress Note - Dictate Date Seen: Oct 15, 2024 Medical Necessity Reason Pt with a Central, PICC or Fol: Yes The following are medically ne: Rojas Catheter Reason for rojas catheter: Strict I&O Subjective Patient was seen and evaluated in follow up.Patient is on 3 LPM NC. SHUKRI is improving. Denies any pain. CBC is unremarkable. Telemetry reviewed. vital signs Vital Sign Date Time Temp Pulse Resp B/P (MAP) Pulse Ox O2 Delivery O2 Flow Rate FiO2 10/15/24 21:15 77 115/62 10/15/24 21:00 97.6 20 90 97.6 10/15/24 19:21 Nasal Cannula 3.0 10/15/24 19:21 32 Total Intake and Output 10/14/24 10/14/24 10/15/24 15:00 23:00 07:00 Intake Total 500 ml 360 ml 597 ml Output Total 700 ml Balance 500 ml -340 ml 597 ml medications Current Medications Medications Dose Ordered Sig/Naldo Route Start Time Stop Time Status Last Admin Dose Admin Atorvastatin Calcium 40 mg HS PO 10/10/24 22:00 Cancel Empaglifozin 10 mg DAILY PO 10/11/24 10:00 10/15/24 09:17 10 MG Ceftriaxone Sodium 50 ml @ 100 mls/hr DAILY@09 IV 10/10/24 17:15 10/15/24 09:17 100 MLS/HR Albuterol 2.5 mg Q4HR NEB 10/10/24 18:00 10/15/24 19:21 2.5 MG Ipratropium [place] 0.5 mg Q4HR NEB 10/10/24 18:00 10/15/24 19:21 0.5 MG Ondansetron HCl 4 mg Q4HP PRN IV 10/10/24 17:45 10/15/24 19:50 4 MG Acetaminophen 650 mg Q6HP PRN PO 10/10/24 17:45 Nitroglycerin 0.4 mg Q5MINP PRN SL 10/10/24 17:45 Morphine Sulfate 2 mg Q30M PRN IV 10/10/24 17:45 10/11/24 10:04 2 MG Atorvastatin Calcium 20 mg HS PO 10/11/24 22:00 10/15/24 21:15 20 MG Furosemide 40 mg BIDD IV 10/10/24 18:00 UNV Pantoprazole Sodium 40 mg DAILY IV 10/11/24 10:00 10/15/24 09:17 40 MG Apixaban 5 mg BID PO 10/11/24 22:00 10/15/24 21:15 5 MG Furosemide 80 mg DAILY IV 10/13/24 10:00 10/15/24 09:18 80 MG Amiodarone HCl 400 mg Q12HR PO 10/15/24 22:00 10/15/24 21:15 400 MG Metoprolol Tartrate 25 mg BID PO 10/15/24 22:00 10/15/24 21:15 25 MG Lactulose 30 ml Q6HR PO 10/15/24 18:00 10/15/24 17:26 30 ML Oxycodone/ Acetaminophen 1 tab Q6HP PRN PO 10/15/24 16:30 objective GENERAL: Alert and oriented x 3. No acute distress. EYES: PERRL, EOMI. Anicteric. HENT: Moist mucous membranes. LUNGS: Decreased breath sounds. CARDIOVASCULAR: Irregular rate and rhythm. A-fib RVR. ABDOMEN: Soft, nontender and nondistended. EXTREMITIES: No edema. NEUROLOGIC: No focal neurological deficits. SKIN: Warm, dry. laboratory and microbiology Laboratory Tests 10/15/24 06:46 Test 10/15/24 06:46 Range/Units Serum Glucose 109 H 74-106 mg/dL Problem List Acute on chronic decompensated HFrEF, NYHA Class III-IV. Acute hypoxic respiratory failure secondary to above. Paroxysmal atrial fibrillation with rapid ventricular response, uncontrolled rate (on amiodarone/Eliquis therapy). Elevated D-dimer rule out PE/DVT. NSTEMI, likely type 2 secondary to above. Hypertension. Dyslipidemia. Suboptimal medical therapy. Assessment/Plan Continued all current supportive medical care. [place] for pain management. Eliquis. Lipitor. IV antibiotics as ordered. Diuretics with Lasix. GI prophylactics. Amiodarone. Additional plan as per the hospital course. Dietary Evaluation Review Comments: 1) Ensure enlive 240ml BID 2) Continue current POC Expected Outcomes/Goals: FU 3-5 days to meet at least 75% estimated needs Plan discussed with: Patient ASHANTI FERNANDEZ MD Oct 15, 2024 21:55
--- NOTE | 2024-10-15 23:20 | DVHPN2 ---
Progress Note - Dictate Date Seen: Oct 15, 2024 Medical Necessity Reason Pt with a Central, PICC or Fol: Yes The following are medically ne: Rojas Catheter Reason for rojas catheter: Strict I&O Subjective Patient seen and examined at bedside. On supplemental oxygen Overnight events reviewed. HPI: A 69-year-old woman with past medical history of lung mass, COPD, pneumonia, CHF, AFib, hypertension, and hyperlipidemia who presented to ED via EMS on 10/10/24 with shortness of breath with nausea, vomiting, and dizziness since 4:00 AM on day of presentation. Patient admits to being noncompliant with her medications. Pt uses 3 L of oxygen via nasal cannula continuously. Of note, she was at [facility] recently on 10/05/24 and had a lung biopsy done for a right lower lobe mass. Patient was admitted for further care, and pulmonary consultation was requested for evaluation and management of acute hypoxic respiratory failure and pulmonary embolism. Review of Systems: 14-point review of systems negative unless otherwise noted above. Past Medical History: COPD, pneumonia, CHF, AFib, hypertension, and hyperlipidemia Past Surgical History: Other (Right lung biopsy at [facility] last month) Medications: Reviewed. Allergies: Aspirin. Family History: Cancer, Other (Mom with lung cancer) Social History: Former smoker. She used to smoke 3/4 pack of cigarettes per day but quit recently.. No alcohol or illicit drug use. vital signs Vital Sign Date Time Temp Pulse Resp B/P (MAP) Pulse Ox O2 Delivery O2 Flow Rate FiO2 10/15/24 22:59 102 18 100 10/15/24 21:15 115/62 10/15/24 21:00 97.6 97.6 10/15/24 20:00 Nasal Cannula* 2 28 Total Intake and Output 10/14/24 10/14/24 10/15/24 14:59 22:59 06:59 Intake Total 500 ml 360 ml 597 ml Output Total 700 ml Balance 500 ml -340 ml 597 ml medications Current Medications Medications Dose Ordered Sig/Naldo Route Start Time Stop Time Status Last Admin Dose Admin Atorvastatin Calcium 40 mg HS PO 10/10/24 22:00 Cancel Empaglifozin 10 mg DAILY PO 10/11/24 10:00 10/15/24 09:17 10 MG Ceftriaxone Sodium 50 ml @ 100 mls/hr DAILY@09 IV 10/10/24 17:15 7/7/25 09:17 100 MLS/HR Albuterol 2.5 mg Q4HR NEB 10/10/24 18:00 10/15/24 22:49 2.5 MG Ipratropium [place] 0.5 mg Q4HR NEB 10/10/24 18:00 10/15/24 22:49 0.5 MG Ondansetron HCl 4 mg Q4HP PRN IV 10/10/24 17:45 10/15/24 19:50 4 MG Acetaminophen 650 mg Q6HP PRN PO 10/10/24 17:45 Nitroglycerin 0.4 mg Q5MINP PRN SL 10/10/24 17:45 Morphine Sulfate 2 mg Q30M PRN IV 10/10/24 17:45 10/11/24 10:04 2 MG Atorvastatin Calcium 20 mg HS PO 10/11/24 22:00 10/15/24 21:15 20 MG Furosemide 40 mg BIDD IV 10/10/24 18:00 UNV Pantoprazole Sodium 40 mg DAILY IV 10/11/24 10:00 10/15/24 09:17 40 MG Apixaban 5 mg BID PO 10/11/24 22:00 10/15/24 21:15 5 MG Furosemide 80 mg DAILY IV 10/13/24 10:00 10/15/24 09:18 80 MG Amiodarone HCl 400 mg Q12HR PO 10/15/24 22:00 10/15/24 21:15 400 MG Metoprolol Tartrate 25 mg BID PO 10/15/24 22:00 10/15/24 21:15 25 MG Lactulose 30 ml Q6HR PO 10/15/24 18:00 10/15/24 17:26 30 ML Oxycodone/ Acetaminophen 1 tab Q6HP PRN PO 10/15/24 16:30 objective Gen.: Patient lying in bed in no apparent distress. On supplemental oxygen. Head: Normocephalic, atraumatic. Eyes: EOMI/PERRLA. Ears: Normal hearing. Normal anatomy. Neck/trachea: Trachea midline, supple. Nose: Normal external anatomy. Mouth: Moist mucous membranes. Chest: Decreased air entry bilaterally. No wheezing or rhonchi. Cardiovascular: Positive S1, positive S2. Regular rate and rhythm. Abdomen: Positive bowel sounds in all 4 quadrants. Soft, non-tender, non- distended. : Deferred. Rectal: Deferred. Skin: Warm, dry. Intact. Extremities: 2+ radial pulses bilaterally. No lower extremity edema. Neuro: Awake, alert, oriented x3. No gross motor or sensory deficits. Cranial nerves II through XII intact. Gait not assessed. laboratory and microbiology Laboratory Tests 10/15/24 06:46 Test 10/15/24 06:46 Range/Units Serum Glucose 109 H 74-106 mg/dL Assessment/Plan Impression: Acute hypoxic respiratory failure Dependence on supplemental oxygen Pulmonary embolism AFib with RVR Pulmonary hypertension, RVSP 69 mmHg Hx of nicotine dependence Events: Remains on supplemental oxygen, 3 LPM NC Improved O2 requirements Continue to taper O2 as tolerated Continue bronchodilators - on albuterol Continue antibiotics On amiodarone PO. Continue Eliquis BID for pulmonary embolism Pain control - on [place] Avoid oversedation Diurese w/ Lasix Monitor renal function. Monitor electrolytes. Supplement as necessary. Monitor ins and outs. S/p lung biopsy Follow up results from [facility] Labs and imaging reviewed. Rest of plan as noted below. Plan: Supplemental oxygen Titrate to keep O2 sats above 92%. Taper O2 as tolerated. Off heparin drip. Continue Eliquis Follow up Echocardiogram, LVEF of 40% to 45% Follow up Cardiology recs Continue bronchodilators Continue abx Incentive spirometry Protonix for GI ppx Diurese w/ Lasix Monitor renal function. Monitor electrolytes. Supplement as necessary. Monitor ins and outs. Prognosis: Poor given patient's multiple co-morbidities. Rest of plan per hospitalist and other consultants. Thank you Dr. Branham for allowing me to participate in this patient's care. Further recommendations will depend on the patient's clinical course. Please do not hesitate to contact me if you have any questions or concerns. This medical document was created using an electronic medical record system with [employer] dictation system. Although these documentations are being carefully reviewed, there may still be some phonetic and typographical changes. The errors are purely typographical, due to imperfection on the software program, and do not reflect any compromise in the patient's medical care. Dietary Evaluation Review Comments: 1) Ensure enlive 240ml BID 2) Continue current POC Expected Outcomes/Goals: FU 3-5 days to meet at least 75% estimated needs Plan discussed with: Patient, Other (RN Radha) FIDEL COLEMAN MD Oct 15, 2024 23:20
[2024-10-16] VITALS (18 sets, daily range): BP systolic 95–102; BP diastolic 48–69; PULSE 86–112; RESP 16–20; TEMP 97.3–98.2; O2SAT 90–100
[2024-10-16 06:22] LABS: Anion Gap 9 (5-15); Carbon Dioxide 31 mmol/L (20-31); Sodium 136 mmol/L (136-145)
[2024-10-16 06:24] LABS: Calcium 8.9 mg/dL (8.7-10.4)
[2024-10-16 06:27] LABS: Chloride 96 mmol/L (98-107); Potassium 3.4 mmol/L (3.5-5.1)
--- NOTE | 2024-10-16 06:27 | DVH ---
CHEST RADIOGRAPH Indication: pna Technique: Single frontal view of the chest was obtained COMPARISON: XY CHEST PORTABLE on DOS: 10/10/24 FINDINGS: Lines and Tubes: None Lungs: Stable appearing multifocal bilateral pulmonary airspace disease with right perihilar and basi lar consolidative features. Small bilateral pleural effusions. No pneumothorax. Cardiomediastinal contours: Unremarkable Bones: Unremarkable IMPRESSION: 1. Stable appearing multifocal bilateral pulmonary airspace disease including perihilar and basilar c onsolidative features. 2. Small bilateral pleural effusions.
[2024-10-16 06:28] LABS: BUN/Creatinine Ratio 20.3 (10.0-20.0); Blood Urea Nitrogen 15 mg/dL (9-23); Glucose 84 mg/dL (74-106)
[2024-10-16] MEDS: OXYCODONE W/ ACETAMINOPHEN 5/325MG TABLET PO PRN (10:22)
--- NOTE | 2024-10-16 13:32 | DVHPN2 ---
Subjective Patient denies any symptoms at this time. Reviewed: Care Plan, H&P, Medications Changes from previous H/P or p: No Changes General: Per HPI Respiratory: Shortness of breath Gastrointestinal: Nausea, Vomiting Objective Vitals Vital Signs Date Time Temp Pulse Resp B/P (MAP) Pulse Ox O2 Delivery O2 Flow Rate FiO2 10/16/24 11:24 102 98/60 10/16/24 09:38 18 99 10/16/24 09:32 Nasal Cannula* 3 32 10/16/24 09:00 98.1 98.1 Intake/Output Intake and Output 10/16/24 07:00 Intake Total 1778 ml Output Total 1925 ml Balance -147 ml Intake Oral 1350 ml IV Total 428 ml Output Urine Total 1925 ml # Bowel Movements 1 General Appearance: Alert, Oriented X3, Cooperative, No acute distress HEENT: Atraumatic, PERRLA Lungs: Clear to auscultation, Normal air movement Cardiovascular: Normal S1, Normal S2, Other (AFib with RVR) Abdomen: Normal bowel sounds, Soft, No tenderness Musculoskeletal: Normal sensory function, Normal motor function Neuro: Normal gait, Normal speech Skin: Dry, Intact Psych/Mental Status: Mental status NL, Mood NL Medications Current Medications Medications Dose Ordered Sig/Naldo Route Start Time Stop Time Status Last Admin Dose Admin Atorvastatin Calcium 40 mg HS PO 10/10/24 22:00 Cancel Empaglifozin 10 mg DAILY PO 10/11/24 10:00 10/16/24 09:44 10 MG Ceftriaxone Sodium 50 ml @ 100 mls/hr DAILY@09 IV 10/10/24 17:15 10/16/24 09:44 100 MLS/HR Albuterol 2.5 mg Q4HR NEB 10/10/24 18:00 10/16/24 09:32 2.5 MG Ipratropium [place] 0.5 mg Q4HR NEB 10/10/24 18:00 10/16/24 09:32 0.5 MG Ondansetron HCl 4 mg Q4HP PRN IV 10/10/24 17:45 10/15/24 19:50 4 MG Acetaminophen 650 mg Q6HP PRN PO 10/10/24 17:45 Nitroglycerin 0.4 mg Q5MINP PRN SL 10/10/24 17:45 Morphine Sulfate 2 mg Q30M PRN IV 10/10/24 17:45 10/11/24 10:04 2 MG Atorvastatin Calcium 20 mg HS PO 10/11/24 22:00 10/15/24 21:15 20 MG Furosemide 40 mg BIDD IV 10/10/24 18:00 UNV Pantoprazole Sodium 40 mg DAILY IV 10/11/24 10:00 10/16/24 09:44 40 MG Apixaban 5 mg BID PO 10/11/24 22:00 10/16/24 09:44 5 MG Furosemide 80 mg DAILY IV 10/13/24 10:00 10/16/24 10:24 80 MG Amiodarone HCl 400 mg Q12HR PO 10/15/24 22:00 10/16/24 09:44 400 MG Metoprolol Tartrate 25 mg BID PO 10/15/24 22:00 10/16/24 10:24 25 MG Lactulose 30 ml Q6HR PO 10/15/24 18:00 10/15/24 17:26 30 ML Oxycodone/ Acetaminophen 1 tab Q6HP PRN PO 10/15/24 16:30 10/16/24 10:22 1 TAB Laboratory Results Laboratory Tests 10/15/24 06:46 10/16/24 04:53 Chemistry Test 10/16/24 04:53 Calcium Level 8.9 mg/dL (8.7-10.4) Urinalysis Test 10/10/24 11:30 Urine Color Dark-brown (Yellow) Urine Clarity Ex.turbid (Clear) Urine pH 5.5 (5.0-9.0) Urine Specific [place] 1.029 (1.001-1.035) Urine Protein 1+ (Negative) H Urine Ketones Negative (Negative) Urine Blood Negative /uL (Negative) Urine Nitrite Negative (Negative) Urine Bilirubin Negative (Negative) Urine Urobilinogen Normal mg/dL (Negative) Urine Leukocyte Esterase 2+ /uL (Negative) Urine RBC 5 /hpf (0 - 4) Urine Microscopic WBC 27 /HPF (0-5) H Urine Squamous Epithelial Cells Few /hpf (<5) Urine Bacteria Few /hpf (None Seen) H Urine Mucus Many (None Seen) Urine Glucose Trace mg/dL (Normal) Microbiology Microbiology Date/Time Source Procedure Growth Status 10/11/24 00:20 Nose MRSA Screen - Final Complete Labs and/or images reviewed: Labs reviewed by me, Image(s) reviewed by me Assessment/Plan Assessment/Plan Impression: -AFib with RVR -bilateral pulmonary embolism -NSTEMI, probably type 2 -pulmonary mass, biopsy positive for moderately differentiated adenocarcinoma -acute hypoxic respiratory failure -emphysema -history of anticoagulation with Eliquis. Patient uncertain of primary diagnosis -primary hypertension -acute diastolic heart failure Plan: Events: Received biopsy results from [facility]. Discussed with the patient findings of moderately differentiated adenocarcinoma. Given pulmonary mass, probable underlying primary cancer. Rate controlled with metoprolol and amiodarone p.o. discussed with the patient and plan of care including follow up with Oncology once discharged from the hospital. -continue current rate control agents -pulmonology consultation : Recommendations reviewed -continue Rocephin -continue anticoagulation with Eliquis -bowel regimen -repeat labs in a.m. Total time spent with patient discussing and formulating plan of care: 35 minutes. This medical document was created using an electronic medical record system with [employer]dy dictation system. Although this document has been carefully reviewed, there may still be some phonetic and typographical errors. These areas are purely typographical due to imperfections of the software programs, and do not reflect any compromise in the patient's medical care. Plan discussed with: Patient, Other (Rn) My Orders Orders - JOSE MIGUEL SOMERS NP Procedure Category Date Status Time Chest Portable XY 10/16/24 Resulted 04:00 Amiodarone Tablet PHA 10/15/24 In Process (Cordarone Tablet) 22:00 Metoprolol Tartrate PHA 10/15/24 In Process Tablet (Lopressor Ta 22:00 Lactulose Oral PHA 10/15/24 In Process 18:00 Communication Order ORDERS 10/15/24 Transmitted 16:21 Oxycodone W/ Acet PHA 10/15/24 In Process 5/325mg Tab (Percocet 16:30 Date of Service: Oct 16, 2024 Billing Provider: JOSE MIGUEL SOMERS NP Common Visit Codes: [id number] INP/OBS CARE(HIGH) Secondary Visit Codes: [id number] CARE PLAN 30 MINUTES JOSE MIGUEL SOMERS NP Oct 16, 2024 13:32
--- NOTE | 2024-10-16 23:54 | DVHPN2 ---
Progress Note - Dictate Date Seen: Oct 16, 2024 Medical Necessity Reason Pt with a Central, PICC or Fol: Yes The following are medically ne: Rojas Catheter Reason for rojas catheter: Strict I&O Subjective Patient was seen and evaluated in follow up.Patient is on 3 LPM NC. Patient is receiving PRN nebulized breathing treatments. K 3.4. Telemetry reviewed. vital signs Vital Sign Date Time Temp Pulse Resp B/P (MAP) Pulse Ox O2 Delivery O2 Flow Rate FiO2 10/16/24 22:20 92 18 99 10/16/24 21:29 103/60 10/16/24 19:20 Nasal Cannula 3.0 10/16/24 19:20 32 10/16/24 16:46 97.6 97.6 Total Intake and Output 10/15/24 10/15/24 10/16/24 15:00 23:00 07:00 Intake Total 300 ml 978 ml 500 ml Output Total 1600 ml 325 ml Balance 300 ml -622 ml 175 ml medications Current Medications Medications Dose Ordered Sig/Naldo Route Start Time Stop Time Status Last Admin Dose Admin Atorvastatin Calcium 40 mg HS PO 10/10/24 22:00 Cancel Empaglifozin 10 mg DAILY PO 10/11/24 10:00 10/16/24 09:44 10 MG Ceftriaxone Sodium 50 ml @ 100 mls/hr DAILY@09 IV 10/10/24 17:15 10/16/24 09:44 100 MLS/HR Albuterol 2.5 mg Q4HR NEB 10/10/24 18:00 10/16/24 22:10 2.5 MG Ipratropium [place] 0.5 mg Q4HR NEB 10/10/24 18:00 10/16/24 22:10 0.5 MG Ondansetron HCl 4 mg Q4HP PRN IV 10/10/24 17:45 10/15/24 19:50 4 MG Acetaminophen 650 mg Q6HP PRN PO 10/10/24 17:45 Nitroglycerin 0.4 mg Q5MINP PRN SL 10/10/24 17:45 Morphine Sulfate 2 mg Q30M PRN IV 10/10/24 17:45 10/11/24 10:04 2 MG Atorvastatin Calcium 20 mg HS PO 10/11/24 22:00 10/16/24 21:23 20 MG Furosemide 40 mg BIDD IV 10/10/24 18:00 UNV Pantoprazole Sodium 40 mg DAILY IV 10/11/24 10:00 10/16/24 09:44 40 MG Apixaban 5 mg BID PO 10/11/24 22:00 10/16/24 21:23 5 MG Furosemide 80 mg DAILY IV 10/13/24 10:00 10/16/24 10:24 80 MG Amiodarone HCl 400 mg Q12HR PO 10/15/24 22:00 10/16/24 21:24 400 MG Metoprolol Tartrate 25 mg BID PO 10/15/24 22:00 10/16/24 10:24 25 MG Lactulose 30 ml Q6HR PO 10/15/24 18:00 10/15/24 17:26 30 ML Oxycodone/ Acetaminophen 1 tab Q6HP PRN PO 10/15/24 16:30 10/16/24 21:23 1 TAB objective GENERAL: Alert and oriented x 3. No acute distress. EYES: PERRL, EOMI. Anicteric. HENT: Moist mucous membranes. LUNGS: Decreased breath sounds. CARDIOVASCULAR: Irregular rate and rhythm. A-fib RVR. ABDOMEN: Soft, nontender and nondistended. EXTREMITIES: No edema. NEUROLOGIC: No focal neurological deficits. SKIN: Warm, dry. laboratory and microbiology Laboratory Tests 10/16/24 04:53 10/15/24 06:46 Test 10/16/24 04:53 Range/Units Serum Glucose 84 74-106 mg/dL Problem List Acute on chronic decompensated HFrEF, NYHA Class III-IV. Acute hypoxic respiratory failure secondary to above. Paroxysmal atrial fibrillation with rapid ventricular response, uncontrolled rate (on amiodarone/Eliquis therapy). Elevated D-dimer rule out PE/DVT. NSTEMI, likely type 2 secondary to above. Hypertension. Dyslipidemia. Suboptimal medical therapy. Assessment/Plan Continued all current supportive medical care. [place] for pain management. Eliquis. Lipitor. IV antibiotics as ordered. Diuretics with Lasix. GI prophylactics. Amiodarone. Additional plan as per the hospital course. Dietary Evaluation Review Comments: 1) Ensure enlive 240ml BID 2) Continue current POC Expected Outcomes/Goals: FU 3-5 days to meet at least 75% estimated needs Plan discussed with: Patient ASHANTI FERNANDEZ MD Oct 16, 2024 23:54
--- NOTE | 2024-10-16 23:55 | DVHPN2 ---
Progress Note - Dictate Date Seen: Oct 16, 2024 Medical Necessity Reason Pt with a Central, PICC or Fol: Yes The following are medically ne: Rojas Catheter Reason for rojas catheter: Strict I&O Subjective Patient seen and examined at bedside. Remains on supplemental oxygen Overnight events reviewed. HPI: A 69-year-old woman with past medical history of lung mass, COPD, pneumonia, CHF, AFib, hypertension, and hyperlipidemia who presented to ED via EMS on 10/10/24 with shortness of breath with nausea, vomiting, and dizziness since 4:00 AM on day of presentation. Patient admits to being noncompliant with her medications. Pt uses 3 L of oxygen via nasal cannula continuously. Of note, she was at [facility] recently on 10/05/24 and had a lung biopsy done for a right lower lobe mass. Patient was admitted for further care, and pulmonary consultation was requested for evaluation and management of acute hypoxic respiratory failure and pulmonary embolism. Review of Systems: 14-point review of systems negative unless otherwise noted above. Past Medical History: COPD, pneumonia, CHF, AFib, hypertension, and hyperlipidemia Past Surgical History: Other (Right lung biopsy at [facility] last month) Medications: Reviewed. Allergies: Aspirin. Family History: Cancer, Other (Mom with lung cancer) Social History: Former smoker. She used to smoke 3/4 pack of cigarettes per day but quit recently.. No alcohol or illicit drug use. vital signs Vital Sign Date Time Temp Pulse Resp B/P (MAP) Pulse Ox O2 Delivery O2 Flow Rate FiO2 10/16/24 22:20 92 18 99 10/16/24 21:29 103/60 10/16/24 20:00 Nasal Cannula* 4 36 10/16/24 16:46 97.6 97.6 Total Intake and Output 10/15/24 10/15/24 10/16/24 15:00 23:00 07:00 Intake Total 300 ml 978 ml 500 ml Output Total 1600 ml 325 ml Balance 300 ml -622 ml 175 ml medications Current Medications Medications Dose Ordered Sig/Naldo Route Start Time Stop Time Status Last Admin Dose Admin Atorvastatin Calcium 40 mg HS PO 10/10/24 22:00 Cancel Empaglifozin 10 mg DAILY PO 10/11/24 10:00 10/16/24 09:44 10 MG Ceftriaxone Sodium 50 ml @ 100 mls/hr DAILY@09 IV 10/10/24 17:15 10/16/24 09:44 100 MLS/HR Albuterol 2.5 mg Q4HR NEB 10/10/24 18:00 10/16/24 22:10 2.5 MG Ipratropium [place] 0.5 mg Q4HR NEB 10/10/24 18:00 10/16/24 22:10 0.5 MG Ondansetron HCl 4 mg Q4HP PRN IV 10/10/24 17:45 10/15/24 19:50 4 MG Acetaminophen 650 mg Q6HP PRN PO 10/10/24 17:45 Nitroglycerin 0.4 mg Q5MINP PRN SL 10/10/24 17:45 Morphine Sulfate 2 mg Q30M PRN IV 10/10/24 17:45 10/11/24 10:04 2 MG Atorvastatin Calcium 20 mg HS PO 10/11/24 22:00 10/16/24 21:23 20 MG Furosemide 40 mg BIDD IV 10/10/24 18:00 UNV Pantoprazole Sodium 40 mg DAILY IV 10/11/24 10:00 10/16/24 09:44 40 MG Apixaban 5 mg BID PO 10/11/24 22:00 10/16/24 21:23 5 MG Furosemide 80 mg DAILY IV 10/13/24 10:00 10/16/24 10:24 80 MG Amiodarone HCl 400 mg Q12HR PO 10/15/24 22:00 10/16/24 21:24 400 MG Metoprolol Tartrate 25 mg BID PO 10/15/24 22:00 10/16/24 10:24 25 MG Lactulose 30 ml Q6HR PO 10/15/24 18:00 10/15/24 17:26 30 ML Oxycodone/ Acetaminophen 1 tab Q6HP PRN PO 10/15/24 16:30 10/16/24 21:23 1 TAB objective Gen.: Patient lying in bed in no apparent distress. On supplemental oxygen. Head: Normocephalic, atraumatic. Eyes: EOMI/PERRLA. Ears: Normal hearing. Normal anatomy. Neck/trachea: Trachea midline, supple. Nose: Normal external anatomy. Mouth: Moist mucous membranes. Chest: Decreased air entry bilaterally. No wheezing or rhonchi. Cardiovascular: Positive S1, positive S2. Regular rate and rhythm. Abdomen: Positive bowel sounds in all 4 quadrants. Soft, non-tender, non- distended. : Deferred. Rectal: Deferred. Skin: Warm, dry. Intact. Extremities: 2+ radial pulses bilaterally. No lower extremity edema. Neuro: Awake, alert, oriented x3. No gross motor or sensory deficits. Cranial nerves II through XII intact. Gait not assessed. laboratory and microbiology Laboratory Tests 10/16/24 04:53 10/15/24 06:46 Test 10/16/24 04:53 Range/Units Serum Glucose 84 74-106 mg/dL Assessment/Plan Impression: Acute hypoxic respiratory failure Dependence on supplemental oxygen Pulmonary embolism AFib with RVR Pulmonary hypertension, RVSP 69 mmHg Hx of nicotine dependence Adenocarcinoma of lung Events: Remains on supplemental oxygen, 3 LPM NC Improved O2 requirements Continue to taper O2 as tolerated Continue bronchodilators - on albuterol Continue antibiotics On amiodarone PO. Continue Eliquis BID for anticoagulation Pain control - on Percocet Avoid oversedation Diurese w/ Lasix Monitor renal function. Monitor electrolytes. Supplement as necessary. Monitor ins and outs. Protonix for GI ppx S/p lung biopsy Reviewed results from [facility]. Recommend Oncology evaluation for adenocarcinoma of the lung. Plan to obtain outpatient PET CT scan for further evaluation Labs and imaging reviewed. Rest of plan as noted below. Plan: Supplemental oxygen Titrate to keep O2 sats above 92%. Taper O2 as tolerated. Off heparin drip. Continue Eliquis Follow up Echocardiogram, LVEF of 40% to 45% Follow up Cardiology recs Continue bronchodilators Continue abx Incentive spirometry Protonix for GI ppx Pain control Avoid oversedation Diurese w/ Lasix Monitor renal function. Monitor electrolytes. Supplement as necessary. Monitor ins and outs. Prognosis: Poor given patient's multiple co-morbidities. Rest of plan per hospitalist and other consultants. Thank you Dr. Branham for allowing me to participate in this patient's care. Further recommendations will depend on the patient's clinical course. Please do not hesitate to contact me if you have any questions or concerns. This medical document was created using an electronic medical record system with [employer] system. Although these documentations are being carefully reviewed, there may still be some phonetic and typographical changes. The errors are purely typographical, due to imperfection on the software program, and do not reflect any compromise in the patient's medical care. Dietary Evaluation Review Comments: 1) Ensure enlive 240ml BID 2) Continue current POC Expected Outcomes/Goals: FU 3-5 days to meet at least 75% estimated needs Plan discussed with: Patient, Other (RN Radha) FIDEL COLEMAN MD Oct 16, 2024 23:55
[2024-10-17] VITALS (16 sets, daily range): BP systolic 94–105; BP diastolic 46–61; PULSE 82–128; RESP 16–97; TEMP 98.2–98.6; O2SAT 91–100
--- NOTE | 2024-10-17 16:20 | DVHPN2 ---
Subjective Patient denies any symptoms at this time. Reviewed: Care Plan, H&P, Medications Changes from previous H/P or p: No Changes General: Per HPI Respiratory: Shortness of breath Gastrointestinal: Nausea, Vomiting Objective Vitals Vital Signs Date Time Temp Pulse Resp B/P (MAP) Pulse Ox O2 Delivery O2 Flow Rate FiO2 10/17/24 14:44 95 18 99 10/17/24 14:32 Nasal Cannula* 4 36 10/17/24 14:04 98.2 102/48 (66) 98.2 Intake/Output Intake and Output 10/17/24 07:00 Intake Total 1800 ml Output Total 1200 ml Balance 600 ml Intake Oral 1750 ml IV Total 50 ml Output Urine Total 1200 ml # Bowel Movements 1 General Appearance: Alert, Oriented X3, Cooperative, No acute distress HEENT: Atraumatic, PERRLA Lungs: Clear to auscultation, Normal air movement Cardiovascular: Normal S1, Normal S2, Other (AFib with RVR) Abdomen: Normal bowel sounds, Soft, No tenderness Musculoskeletal: Normal sensory function, Normal motor function Neuro: Normal gait, Normal speech Skin: Dry, Intact Psych/Mental Status: Mental status NL, Mood NL Medications Current Medications Medications Dose Ordered Sig/Naldo Route Start Time Stop Time Status Last Admin Dose Admin Atorvastatin Calcium 40 mg HS PO 10/10/24 22:00 Cancel Empaglifozin 10 mg DAILY PO 10/11/24 10:00 10/17/24 09:16 10 MG Ceftriaxone Sodium 50 ml @ 100 mls/hr DAILY@09 IV 10/10/24 17:15 10/17/24 09:15 100 MLS/HR Albuterol 2.5 mg Q4HR NEB 10/10/24 18:00 10/17/24 14:32 2.5 MG Ipratropium [place] 0.5 mg Q4HR NEB 10/10/24 18:00 10/17/24 14:32 0.5 MG Ondansetron HCl 4 mg Q4HP PRN IV 10/10/24 17:45 10/15/24 19:50 4 MG Acetaminophen 650 mg Q6HP PRN PO 10/10/24 17:45 Nitroglycerin 0.4 mg Q5MINP PRN SL 10/10/24 17:45 Morphine Sulfate 2 mg Q30M PRN IV 10/10/24 17:45 10/11/24 10:04 2 MG Atorvastatin Calcium 20 mg HS PO 10/11/24 22:00 10/16/24 21:23 20 MG Furosemide 40 mg BIDD IV 10/10/24 18:00 UNV Pantoprazole Sodium 40 mg DAILY IV 10/11/24 10:00 10/17/24 09:15 40 MG Apixaban 5 mg BID PO 10/11/24 22:00 10/17/24 09:16 5 MG Furosemide 80 mg DAILY IV 10/13/24 10:00 10/17/24 09:56 80 MG Amiodarone HCl 400 mg Q12HR PO 10/15/24 22:00 10/17/24 09:16 400 MG Metoprolol Tartrate 25 mg BID PO 10/15/24 22:00 10/16/24 10:24 25 MG Lactulose 30 ml Q6HR PO 10/15/24 18:00 10/17/24 11:40 30 ML Oxycodone/ Acetaminophen 1 tab Q6HP PRN PO 10/15/24 16:30 10/17/24 09:39 1 TAB Laboratory Results Laboratory Tests 10/15/24 06:46 10/16/24 04:53 Urinalysis Test 10/10/24 11:30 Urine Color Dark-brown (Yellow) Urine Clarity Ex.turbid (Clear) Urine pH 5.5 (5.0-9.0) Urine Specific [place] 1.029 (1.001-1.035) Urine Protein 1+ (Negative) H Urine Ketones Negative (Negative) Urine Blood Negative /uL (Negative) Urine Nitrite Negative (Negative) Urine Bilirubin Negative (Negative) Urine Urobilinogen Normal mg/dL (Negative) Urine Leukocyte Esterase 2+ /uL (Negative) Urine RBC 5 /hpf (0 - 4) Urine Microscopic WBC 27 /HPF (0-5) H Urine Squamous Epithelial Cells Few /hpf (<5) Urine Bacteria Few /hpf (None Seen) H Urine Mucus Many (None Seen) Urine Glucose Trace mg/dL (Normal) Microbiology Microbiology Date/Time Source Procedure Growth Status 10/11/24 00:20 Nose MRSA Screen - Final Complete Labs and/or images reviewed: Labs reviewed by me, Image(s) reviewed by me Assessment/Plan Assessment/Plan Impression: -AFib with RVR -bilateral pulmonary embolism -NSTEMI, probably type 2 -pulmonary mass, biopsy positive for moderately differentiated adenocarcinoma -acute hypoxic respiratory failure -emphysema -history of anticoagulation with Eliquis. Patient uncertain of primary diagnosis -primary hypertension -acute diastolic heart failure Plan: Events: Patient reporting generalized weakness. Also reports having persistent dyspnea. -continue current rate control agents -pulmonology consultation : Recommendations reviewed -continue Rocephin -continue anticoagulation with Eliquis -bowel regimen -social service consultation for oncology consultation as outpatient. Total time spent with patient discussing and formulating plan of care: 35 minutes. This medical document was created using an electronic medical record system with [employer] dictation system. Although this document has been carefully reviewed, there may still be some phonetic and typographical errors. These areas are purely typographical due to imperfections of the software programs, and do not reflect any compromise in the patient's medical care. Plan discussed with: Patient, Other (RN) Date of Service: Oct 17, 2024 Billing Provider: JOSE MIGUEL SOMERS NP Common Visit Codes: [id number] INP/OBS CARE(HIGH) JOSE MIGUEL SOMERS NP Oct 17, 2024 16:20
--- NOTE | 2024-10-17 21:50 | DVHPN2 ---
Progress Note - Dictate Date Seen: Oct 17, 2024 Medical Necessity Reason Pt with a Central, PICC or Fol: Yes The following are medically ne: Rojas Catheter Reason for rojas catheter: Strict I&O Subjective Patient seen and examined at bedside. Remains on supplemental oxygen Overnight events reviewed. HPI: A 69-year-old woman with past medical history of lung mass, COPD, pneumonia, CHF, AFib, hypertension, and hyperlipidemia who presented to ED via EMS on 10/10/24 with shortness of breath with nausea, vomiting, and dizziness since 4:00 AM on day of presentation. Patient admits to being noncompliant with her medications. Pt uses 3 L of oxygen via nasal cannula continuously. Of note, she was at [facility] recently on 10/05/24 and had a lung biopsy done for a right lower lobe mass. Patient was admitted for further care, and pulmonary consultation was requested for evaluation and management of acute hypoxic respiratory failure and pulmonary embolism. Review of Systems: 14-point review of systems negative unless otherwise noted above. Past Medical History: COPD, pneumonia, CHF, AFib, hypertension, and hyperlipidemia Past Surgical History: Other (Right lung biopsy at [facility] last month) Medications: Reviewed. Allergies: Aspirin. Family History: Cancer, Other (Mom with lung cancer) Social History: Former smoker. She used to smoke 3/4 pack of cigarettes per day but quit recently.. No alcohol or illicit drug use. vital signs Vital Sign Date Time Temp Pulse Resp B/P (MAP) Pulse Ox O2 Delivery O2 Flow Rate FiO2 10/17/24 21:36 82 105/46 10/17/24 17:08 98.4 16 91 98.4 10/17/24 14:32 Nasal Cannula* 4 36 Total Intake and Output 10/16/24 10/16/24 10/17/24 15:00 23:00 07:00 Intake Total 50 ml 950 ml 800 ml Output Total 800 ml 400 ml Balance 50 ml 150 ml 400 ml medications Current Medications Medications Dose Ordered Sig/Naldo Route Start Time Stop Time Status Last Admin Dose Admin Atorvastatin Calcium 40 mg HS PO 10/10/24 22:00 Cancel Empaglifozin 10 mg DAILY PO 10/11/24 10:00 10/17/24 09:16 10 MG Ceftriaxone Sodium 50 ml @ 100 mls/hr DAILY@09 IV 10/10/24 17:15 10/17/24 09:15 100 MLS/HR Albuterol 2.5 mg Q4HR NEB 10/10/24 18:00 10/17/24 21:41 2.5 MG Ipratropium [place] 0.5 mg Q4HR NEB 10/10/24 18:00 10/17/24 21:41 0.5 MG Ondansetron HCl 4 mg Q4HP PRN IV 10/10/24 17:45 10/15/24 19:50 4 MG Acetaminophen 650 mg Q6HP PRN PO 10/10/24 17:45 Nitroglycerin 0.4 mg Q5MINP PRN SL 10/10/24 17:45 Morphine Sulfate 2 mg Q30M PRN IV 10/10/24 17:45 10/11/24 10:04 2 MG Atorvastatin Calcium 20 mg HS PO 10/11/24 22:00 10/17/24 21:34 20 MG Furosemide 40 mg BIDD IV 10/10/24 18:00 UNV Pantoprazole Sodium 40 mg DAILY IV 10/11/24 10:00 10/17/24 09:15 40 MG Apixaban 5 mg BID PO 10/11/24 22:00 10/17/24 21:34 5 MG Furosemide 80 mg DAILY IV 10/13/24 10:00 10/17/24 09:56 80 MG Amiodarone HCl 400 mg Q12HR PO 10/15/24 22:00 10/17/24 21:34 400 MG Metoprolol Tartrate 25 mg BID PO 10/15/24 22:00 10/16/24 10:24 25 MG Lactulose 30 ml Q6HR PO 10/15/24 18:00 10/17/24 11:40 30 ML Oxycodone/ Acetaminophen 1 tab Q6HP PRN PO 10/15/24 16:30 10/17/24 16:39 1 TAB objective Gen.: Patient lying in bed in no apparent distress. On supplemental oxygen. Head: Normocephalic, atraumatic. Eyes: EOMI/PERRLA. Ears: Normal hearing. Normal anatomy. Neck/trachea: Trachea midline, supple. Nose: Normal external anatomy. Mouth: Moist mucous membranes. Chest: Decreased air entry bilaterally. No wheezing or rhonchi. Cardiovascular: Positive S1, positive S2. Regular rate and rhythm. Abdomen: Positive bowel sounds in all 4 quadrants. Soft, non-tender, non- distended. : Deferred. Rectal: Deferred. Skin: Warm, dry. Intact. Extremities: 2+ radial pulses bilaterally. No lower extremity edema. Neuro: Awake, alert, oriented x3. No gross motor or sensory deficits. Cranial nerves II through XII intact. Gait not assessed. laboratory and microbiology Laboratory Tests 10/16/24 04:53 10/15/24 06:46 Test 10/16/24 04:53 Range/Units Serum Glucose 84 74-106 mg/dL Assessment/Plan Impression: Acute hypoxic respiratory failure Dependence on supplemental oxygen Pulmonary embolism AFib with RVR Pulmonary hypertension, RVSP 69 mmHg Hx of nicotine dependence Adenocarcinoma of lung Events: Remains on supplemental oxygen, 4 LPM NC Taper O2 as tolerated Continue bronchodilators - on albuterol Continue antibiotics On amiodarone PO. Eliquis BID for anticoagulation for PE. Pain control - on Percocet Avoid oversedation Diurese w/ Lasix Monitor renal function. Monitor electrolytes. Supplement as necessary. Monitor ins and outs. Protonix for GI ppx S/p lung biopsy Reviewed results from [facility]. Recommend outpatient Oncology evaluation for adenocarcinoma of the lung. Plan to obtain outpatient PET CT scan for further evaluation Labs and imaging reviewed. Rest of plan as noted below. Plan: Supplemental oxygen Titrate to keep O2 sats above 92%. Taper O2 as tolerated. Off heparin drip. Continue Eliquis Follow up Echocardiogram, LVEF of 40% to 45% Follow up Cardiology recs Continue bronchodilators Continue antibiotics Incentive spirometry Protonix for GI ppx Pain control Avoid oversedation Diurese w/ Lasix Monitor renal function. Monitor electrolytes. Supplement as necessary. Monitor ins and outs. Prognosis: Poor given patient's multiple co-morbidities. Rest of plan per hospitalist and other consultants. Thank you Dr. Branham for allowing me to participate in this patient's care. Further recommendations will depend on the patient's clinical course. Please do not hesitate to contact me if you have any questions or concerns. This medical document was created using an electronic medical record system with [employer] system. Although these documentations are being carefully reviewed, there may still be some phonetic and typographical changes. The errors are purely typographical, due to imperfection on the software program, and do not reflect any compromise in the patient's medical care. Dietary Evaluation Review Comments: 1) Ensure enlive 240ml BID 2) Continue current POC Expected Outcomes/Goals: FU 3-5 days to meet at least 75% estimated needs Plan discussed with: Patient, Other (RN Sofia) FIDEL COLEMAN MD Oct 17, 2024 21:50
--- NOTE | 2024-10-17 23:42 | DVHPN2 ---
Progress Note - Dictate Date Seen: Oct 17, 2024 Medical Necessity Reason Pt with a Central, PICC or Fol: Yes The following are medically ne: Rojas Catheter Reason for rojas catheter: Strict I&O Subjective Patient was seen and evaluated in follow up. No overnight events. Patient is on 4 LPM NC. Patient is tachycardic in the 120's. Telemetry reviewed. vital signs Vital Sign Date Time Temp Pulse Resp B/P (MAP) Pulse Ox O2 Delivery O2 Flow Rate FiO2 10/17/24 14:04 98.2 123 17 102/48 (66) 97 98.2 10/17/24 09:36 Nasal Cannula* 4 36 Total Intake and Output 10/16/24 10/16/24 10/17/24 14:59 22:59 06:59 Intake Total 50 ml 950 ml 800 ml Output Total 800 ml 400 ml Balance 50 ml 150 ml 400 ml medications Current Medications Medications Dose Ordered Sig/Naldo Route Start Time Stop Time Status Last Admin Dose Admin Atorvastatin Calcium 40 mg HS PO 10/10/24 22:00 Cancel Empaglifozin 10 mg DAILY PO 10/11/24 10:00 10/17/24 09:16 10 MG Ceftriaxone Sodium 50 ml @ 100 mls/hr DAILY@09 IV 10/10/24 17:15 10/17/24 09:15 100 MLS/HR Albuterol 2.5 mg Q4HR NEB 10/10/24 18:00 10/17/24 09:36 2.5 MG Ipratropium [place] 0.5 mg Q4HR NEB 10/10/24 18:00 10/17/24 09:36 0.5 MG Ondansetron HCl 4 mg Q4HP PRN IV 10/10/24 17:45 10/15/24 19:50 4 MG Acetaminophen 650 mg Q6HP PRN PO 10/10/24 17:45 Nitroglycerin 0.4 mg Q5MINP PRN SL 10/10/24 17:45 Morphine Sulfate 2 mg Q30M PRN IV 10/10/24 17:45 10/11/24 10:04 2 MG Atorvastatin Calcium 20 mg HS PO 10/11/24 22:00 10/16/24 21:23 20 MG Furosemide 40 mg BIDD IV 10/10/24 18:00 UNV Pantoprazole Sodium 40 mg DAILY IV 10/11/24 10:00 10/17/24 09:15 40 MG Apixaban 5 mg BID PO 10/11/24 22:00 10/17/24 09:16 5 MG Furosemide 80 mg DAILY IV 10/13/24 10:00 10/17/24 09:56 80 MG Amiodarone HCl 400 mg Q12HR PO 10/15/24 22:00 10/17/24 09:16 400 MG Metoprolol Tartrate 25 mg BID PO 10/15/24 22:00 10/16/24 10:24 25 MG Lactulose 30 ml Q6HR PO 10/15/24 18:00 10/17/24 11:40 30 ML Oxycodone/ Acetaminophen 1 tab Q6HP PRN PO 10/15/24 16:30 10/17/24 09:39 1 TAB objective GENERAL: Alert and oriented x 3. No acute distress. EYES: PERRL, EOMI. Anicteric. HENT: Moist mucous membranes. LUNGS: Decreased breath sounds. CARDIOVASCULAR: Irregular rate and rhythm. A-fib RVR. ABDOMEN: Soft, nontender and nondistended. EXTREMITIES: No edema. NEUROLOGIC: No focal neurological deficits. SKIN: Warm, dry. laboratory and microbiology Laboratory Tests 10/16/24 04:53 10/15/24 06:46 Test 10/16/24 04:53 Range/Units Serum Glucose 84 74-106 mg/dL Problem List Acute on chronic decompensated HFrEF, NYHA Class III-IV. Acute hypoxic respiratory failure secondary to above. Paroxysmal atrial fibrillation with rapid ventricular response, uncontrolled rate (on amiodarone/Eliquis therapy). Elevated D-dimer rule out PE/DVT. NSTEMI, likely type 2 secondary to above. Hypertension. Dyslipidemia. Suboptimal medical therapy. Assessment/Plan Continued all current supportive medical care. Tylenol #3 for pain management. Eliquis. IV antibiotics as ordered. Diuretics with Lasix. GI prophylactics. Amiodarone. Additional plan as per the hospital course. Dietary Evaluation Review Comments: 1) Ensure enlive 240ml BID 2) Continue current POC Expected Outcomes/Goals: FU 3-5 days to meet at least 75% estimated needs Plan discussed with: Patient ASHANTI FERNANDEZ MD Oct 17, 2024 14:17
[2024-10-18] VITALS (19 sets, daily range): BP systolic 93–129; BP diastolic 51–95; PULSE 77–125; RESP 18–20; TEMP 97.6–98.1; O2SAT 91–99
[2024-10-18] MEDS ORDERED: IODIXANOL 320MG/ML 100ML BTL IV ONE (09:05)
--- NOTE | 2024-10-18 10:27 | DVH ---
CLINICAL INFORMATION: Rule out metastatic disease. Abnormal findings on CTA chest, including massli ke consolidation versus mass in the right lower lobe mediastinal and hilar lymphadenopathy. Abdominal pain. TECHNIQUE: Axial CT images of the abdomen and pelvis were obtained after the uneventful administrati on of 100 mL Omnipaque 300 IV contrast. Coronal and sagittal reformatted images were obtained, review ed, and stored. All CT scans at this medical facility are performed using dose modulation techniques as appropriate to a performed exam including the following: Automated exposure control was utilized; adjustment of the MA and/or KV according to patient size; and use of iterative reconstruction [employer] ue. CTDIvol = 7.86 mGy DLP = 445.94 mGy-cm COMPARISON: None FINDINGS: Lung bases: Partially visualized consolidation in the right lower lobe with adjacent areas of interlo bular septal thickening and patchy airspace opacities. Moderate to marked emphysematous changes parti ally visualized. Liver: Hepatic steatosis. No focal liver lesion identified. Biliary: No calcified gallstones or biliary ductal dilatation. Spleen: Geographic areas of hypo enhancement in the spleen, suspected infarcts, with the largest laura uring up to 2.7 cm. Pancreas: Unremarkable. No inflammatory changes, ductal dilatation, or mass identified. Adrenal glands: Thickened appearing bilateral adrenal glands, partially obscured by motion artifact, probable superimposed right adrenal nodule measuring up to 1.1 cm in greatest dimension left adrenal nodule measures up to 1.7 cm. Kidneys: No hydronephrosis or mass. Aorta/Vascular: Moderate atherosclerotic calcification. No abdominal aortic aneurysm. Retroperitoneum: No mass or lymphadenopathy. Bowel/mesentery: Nonspecific nondilated fluid-filled small bowel loops. No small bowel obstruction. A ppendix is not visualized. Scattered colonic diverticula without adjacent inflammatory changes to sug gest diverticulitis. Pelvic organs: Grossly unremarkable. Bladder: Saavedra catheter extends into the bladder. Bladder is underdistended and not well evaluated. Abdominal wall: No mass or hernia. Bones: No acute fracture or focal intraosseous lesion. IMPRESSION: 1. Splenic infarcts as described above. 2. Indeterminate small bilateral adrenal nodules. Adrenal mass protocol MRI could be considered to fu rther characterize. 3. Hepatic steatosis. No focal liver lesion. 4. Nonspecific nondilated fluid-filled small bowel loops. Findings may be seen with ileus or enteriti s in the appropriate clinical setting. No small bowel obstruction. 5. Scattered colonic diverticula without adjacent inflammatory changes to suggest diverticulitis. 6. Partially visualized right lower lobe consolidation and areas of adjacent interlobular septal thic kening. 7. Additional findings as described above.
--- NOTE | 2024-10-18 15:04 | DVHPN2 ---
Progress Note - Dictate Date Seen: Oct 18, 2024 Medical Necessity Reason Pt with a Central, PICC or Fol: Yes The following are medically ne: Rojas Catheter Reason for rojas catheter: Strict I&O Subjective Patient was seen and evaluated in follow up. Patient refused medications this am. Patient remains tachycardic in the 120's. CT ABD PEL shows splenic infarcts. Indeterminate small bilateral adrenal nodules, hepatic steatosis. No focal liver lesion. Nonspecific nondilated fluid-filled small bowel loops. No small bowel obstruction. Scattered colonic diverticula without adjacent inflammatory changes to suggest diverticulitis. Partially visualized right lower lobe consolidation and areas of adjacent interlobular septal thickening. Telemetry reviewed. vital signs Vital Sign Date Time Temp Pulse Resp B/P (MAP) Pulse Ox O2 Delivery O2 Flow Rate FiO2 10/18/24 10:24 125 18 96 10/18/24 10:18 Nasal Cannula* 3 32 10/18/24 09:53 120/95 10/18/24 09:00 97.7 97.7 Total Intake and Output 10/17/24 10/17/24 10/18/24 15:00 23:00 07:00 Intake Total 50 ml 550 ml Output Total 1500 ml Balance 50 ml -950 ml medications Current Medications Medications Dose Ordered Sig/Naldo Route Start Time Stop Time Status Last Admin Dose Admin Atorvastatin Calcium 40 mg HS PO 10/10/24 22:00 Cancel Empaglifozin 10 mg DAILY PO 10/11/24 10:00 10/18/24 09:52 10 MG Ceftriaxone Sodium 50 ml @ 100 mls/hr DAILY@09 IV 10/10/24 17:15 10/18/24 09:51 100 MLS/HR Albuterol 2.5 mg Q4HR NEB 10/10/24 18:00 10/18/24 10:18 2.5 MG Ipratropium [place] 0.5 mg Q4HR NEB 10/10/24 18:00 10/18/24 10:18 0.5 MG Ondansetron HCl 4 mg Q4HP PRN IV 10/10/24 17:45 10/15/24 19:50 4 MG Acetaminophen 650 mg Q6HP PRN PO 10/10/24 17:45 Nitroglycerin 0.4 mg Q5MINP PRN SL 10/10/24 17:45 Morphine Sulfate 2 mg Q30M PRN IV 10/10/24 17:45 10/11/24 10:04 2 MG Atorvastatin Calcium 20 mg HS PO 10/11/24 22:00 10/17/24 21:34 20 MG Furosemide 40 mg BIDD IV 10/10/24 18:00 UNV Pantoprazole Sodium 40 mg DAILY IV 10/11/24 10:00 10/18/24 09:51 40 MG Apixaban 5 mg BID PO 10/11/24 22:00 10/18/24 09:52 5 MG Furosemide 80 mg DAILY IV 10/13/24 10:00 10/18/24 09:53 80 MG Amiodarone HCl 400 mg Q12HR PO 10/15/24 22:00 10/18/24 09:52 400 MG Metoprolol Tartrate 25 mg BID PO 10/15/24 22:00 10/18/24 09:52 25 MG Lactulose 30 ml Q6HR PO 10/15/24 18:00 10/17/24 11:40 30 ML Oxycodone/ Acetaminophen 1 tab Q6HP PRN PO 10/15/24 16:30 10/18/24 12:12 1 TAB objective GENERAL: Alert and oriented x 3. No acute distress. EYES: PERRL, EOMI. Anicteric. HENT: Moist mucous membranes. LUNGS: Decreased breath sounds. CARDIOVASCULAR: Irregular rate and rhythm. A-fib RVR. ABDOMEN: Soft, nontender and nondistended. EXTREMITIES: No edema. NEUROLOGIC: No focal neurological deficits. SKIN: Warm, dry. laboratory and microbiology Laboratory Tests 10/16/24 04:53 10/15/24 06:46 Test 10/16/24 04:53 Range/Units Serum Glucose 84 74-106 mg/dL Problem List Acute on chronic decompensated HFrEF, NYHA Class III-IV. Acute hypoxic respiratory failure secondary to above. Paroxysmal atrial fibrillation with rapid ventricular response, uncontrolled rate (on amiodarone/Eliquis therapy). Elevated D-dimer rule out PE/DVT. NSTEMI, likely type 2 secondary to above. Hypertension. Dyslipidemia. Suboptimal medical therapy. Assessment/Plan Continued all current supportive medical care. Tylenol #3 for pain management. Eliquis. IV antibiotics as ordered. Diuretics with Lasix. GI prophylactics. Amiodarone. Nitro SL. Metoprolol. Additional plan as per the hospital course. Dietary Evaluation Review Comments: 1) Ensure enlive 240ml BID 2) Continue current POC Expected Outcomes/Goals: FU 3-5 days to meet at least 75% estimated needs Plan discussed with: Patient ASHANTI FERNANDEZ MD Oct 18, 2024 12:38
[2024-10-18] MEDS ORDERED: AMIO200T33 PO (15:55)
[2024-10-18] MEDS ORDERED: PERCOT PO (15:55)
--- NOTE | 2024-10-18 16:00 | DVHPN2 ---
Subjective Patient continues to have of the left upper quadrant pain Reviewed: Care Plan, H&P, Medications Changes from previous H/P or p: No Changes General: Per HPI Respiratory: Shortness of breath Gastrointestinal: Nausea, Vomiting Objective Vitals Vital Signs Date Time Temp Pulse Resp B/P (MAP) Pulse Ox O2 Delivery O2 Flow Rate FiO2 10/18/24 14:21 100 18 98 10/18/24 14:14 Nasal Cannula* 3 32 10/18/24 13:00 97.6 93/57 (69) 97.6 Intake/Output Intake and Output 10/18/24 07:00 Intake Total 600 ml Output Total 1500 ml Balance -900 ml Intake Oral 550 ml IV Total 50 ml Output Urine Total 1500 ml # Bowel Movements 1 General Appearance: Alert, Oriented X3, Cooperative, No acute distress HEENT: Atraumatic, PERRLA Lungs: Clear to auscultation, Normal air movement Cardiovascular: Normal S1, Normal S2, Other (AFib with RVR) Abdomen: Normal bowel sounds, Soft, No tenderness Musculoskeletal: Normal sensory function, Normal motor function Neuro: Normal gait, Normal speech Skin: Dry, Intact Psych/Mental Status: Mental status NL, Mood NL Medications Current Medications Medications Dose Ordered Sig/Naldo Route Start Time Stop Time Status Last Admin Dose Admin Atorvastatin Calcium 40 mg HS PO 10/10/24 22:00 Cancel Empaglifozin 10 mg DAILY PO 10/11/24 10:00 10/18/24 09:52 10 MG Ceftriaxone Sodium 50 ml @ 100 mls/hr DAILY@09 IV 10/10/24 17:15 10/18/24 09:51 100 MLS/HR Albuterol 2.5 mg Q4HR NEB 10/10/24 18:00 10/18/24 14:14 2.5 MG Ipratropium [place] 0.5 mg Q4HR NEB 10/10/24 18:00 10/18/24 14:14 0.5 MG Ondansetron HCl 4 mg Q4HP PRN IV 10/10/24 17:45 10/15/24 19:50 4 MG Acetaminophen 650 mg Q6HP PRN PO 10/10/24 17:45 Nitroglycerin 0.4 mg Q5MINP PRN SL 10/10/24 17:45 Morphine Sulfate 2 mg Q30M PRN IV 10/10/24 17:45 10/11/24 10:04 2 MG Atorvastatin Calcium 20 mg HS PO 10/11/24 22:00 10/17/24 21:34 20 MG Furosemide 40 mg BIDD IV 10/10/24 18:00 UNV Pantoprazole Sodium 40 mg DAILY IV 10/11/24 10:00 10/18/24 09:51 40 MG Apixaban 5 mg BID PO 10/11/24 22:00 10/18/24 09:52 5 MG Furosemide 80 mg DAILY IV 10/13/24 10:00 10/18/24 09:53 80 MG Metoprolol Tartrate 25 mg BID PO 10/15/24 22:00 10/18/24 09:52 25 MG Lactulose 30 ml Q6HR PO 10/15/24 18:00 10/17/24 11:40 30 ML Oxycodone/ Acetaminophen 1 tab Q6HP PRN PO 10/15/24 16:30 10/18/24 12:12 1 TAB Amiodarone HCl 200 mg Q12HR PO 10/18/24 22:00 UNV Laboratory Results Laboratory Tests 10/15/24 06:46 10/16/24 04:53 Urinalysis Test 10/10/24 11:30 Urine Color Dark-brown (Yellow) Urine Clarity Ex.turbid (Clear) Urine pH 5.5 (5.0-9.0) Urine Specific [place] 1.029 (1.001-1.035) Urine Protein 1+ (Negative) H Urine Ketones Negative (Negative) Urine Blood Negative /uL (Negative) Urine Nitrite Negative (Negative) Urine Bilirubin Negative (Negative) Urine Urobilinogen Normal mg/dL (Negative) Urine Leukocyte Esterase 2+ /uL (Negative) Urine RBC 5 /hpf (0 - 4) Urine Microscopic WBC 27 /HPF (0-5) H Urine Squamous Epithelial Cells Few /hpf (<5) Urine Bacteria Few /hpf (None Seen) H Urine Mucus Many (None Seen) Urine Glucose Trace mg/dL (Normal) Microbiology Microbiology Date/Time Source Procedure Growth Status 10/11/24 00:20 Nose MRSA Screen - Final Complete Labs and/or images reviewed: Labs reviewed by me, Image(s) reviewed by me Assessment/Plan Assessment/Plan Impression: -AFib with RVR -bilateral pulmonary embolism -NSTEMI, probably type 2 -pulmonary mass, biopsy positive for moderately differentiated adenocarcinoma -acute hypoxic respiratory failure -emphysema -history of anticoagulation with Eliquis. Patient uncertain of primary diagnosis -primary hypertension -acute diastolic heart failure -splenic infarct Plan: Events: CT scan performed of abdomen and pelvis. Noted adrenal nodules. Splenic infarct. Discussed findings with the patient. Long discussion made with the patient's daughters via telephone regarding discharge plan of care. Patient will have outpatient oncology referral. Plans for DC in a.m. once pain has improved -continue current rate control agents -pulmonology consultation : Recommendations reviewed -continue Rocephin -continue anticoagulation with Eliquis -bowel regimen -social service consultation for oncology consultation as outpatient. Total time spent with patient discussing and formulating plan of care: 35 minutes. This medical document was created using an electronic medical record system with [employer] system. Although this document has been carefully reviewed, there may still be some phonetic and typographical errors. These areas are purely typographical due to imperfections of the software programs, and do not reflect any compromise in the patient's medical care. Plan discussed with: Patient, Other (RN) My Orders Orders - JOSE MIGUEL SOMERS NP Procedure Category Date Status Time * Quality Control Microbiology Supervisor CONS 10/17/[address] Ab Pel With Iv Con CT 10/18/24 Resulted Only 08:31 Cardiac DIET 10/18/24 Transmitted Diet-2gna,Lofat,Lochol Lunch Amiodarone Tablet PHA 10/18/24 Logged (Cordarone Tablet) 22:00 Discharge DISCHARGE 10/18/24 Transmitted 15:57 Date of Service: Oct 18, 2024 Billing Provider: JOSE MIGUEL SOMERS NP Common Visit Codes: [id number] INP/OBS CARE(HIGH) JOSE MIGUEL SOMERS NP Oct 18, 2024 16:00
[2024-10-18] MEDS: AMIODARONE HCL 200 MG TAB PO SCH (21:22)
--- NOTE | 2024-10-18 23:51 | DVHPN2 ---
Progress Note - Dictate Date Seen: Oct 18, 2024 Medical Necessity Reason Pt with a Central, PICC or Fol: Yes The following are medically ne: Rojas Catheter Reason for rojas catheter: Strict I&O Subjective Patient seen and examined at bedside. Remains on supplemental oxygen Overnight events reviewed. HPI: A 69-year-old woman with past medical history of lung mass, COPD, pneumonia, CHF, AFib, hypertension, and hyperlipidemia who presented to ED via EMS on 10/10/24 with shortness of breath with nausea, vomiting, and dizziness since 4:00 AM on day of presentation. Patient admits to being noncompliant with her medications. Pt uses 3 L of oxygen via nasal cannula continuously. Of note, she was at [facility] recently on 10/05/24 and had a lung biopsy done for a right lower lobe mass. Patient was admitted for further care, and pulmonary consultation was requested for evaluation and management of acute hypoxic respiratory failure and pulmonary embolism. Review of Systems: 14-point review of systems negative unless otherwise noted above. Past Medical History: COPD, pneumonia, CHF, AFib, hypertension, and hyperlipidemia Past Surgical History: Other (Right lung biopsy at [facility] last month) Medications: Reviewed. Allergies: Aspirin. Family History: Cancer, Other (Mom with lung cancer) Social History: Former smoker. She used to smoke 3/4 pack of cigarettes per day but quit recently.. No alcohol or illicit drug use. vital signs Vital Sign Date Time Temp Pulse Resp B/P (MAP) Pulse Ox O2 Delivery O2 Flow Rate FiO2 10/18/24 22:26 94 18 97 10/18/24 22:18 Nasal Cannula* 3 32 10/18/24 21:24 129/87 10/18/24 21:00 98.1 98.1 Total Intake and Output 10/17/24 10/17/24 10/18/24 15:00 23:00 07:00 Intake Total 50 ml 550 ml Output Total 1500 ml Balance 50 ml -950 ml medications Current Medications Medications Dose Ordered Sig/Naldo Route Start Time Stop Time Status Last Admin Dose Admin Atorvastatin Calcium 40 mg HS PO 10/10/24 22:00 Cancel Empaglifozin 10 mg DAILY PO 10/11/24 10:00 10/18/24 09:52 10 MG Ceftriaxone Sodium 50 ml @ 100 mls/hr DAILY@09 IV 10/10/24 17:15 10/18/24 09:51 100 MLS/HR Albuterol 2.5 mg Q4HR NEB 10/10/24 18:00 10/18/24 22:18 2.5 MG Ipratropium [place] 0.5 mg Q4HR NEB 10/10/24 18:00 10/18/24 22:18 0.5 MG Ondansetron HCl 4 mg Q4HP PRN IV 10/10/24 17:45 10/15/24 19:50 4 MG Acetaminophen 650 mg Q6HP PRN PO 10/10/24 17:45 Nitroglycerin 0.4 mg Q5MINP PRN SL 10/10/24 17:45 Morphine Sulfate 2 mg Q30M PRN IV 10/10/24 17:45 10/11/24 10:04 2 MG Atorvastatin Calcium 20 mg HS PO 10/11/24 22:00 10/18/24 21:23 20 MG Furosemide 40 mg BIDD IV 10/10/24 18:00 UNV Pantoprazole Sodium 40 mg DAILY IV 10/11/24 10:00 10/18/24 09:51 40 MG Apixaban 5 mg BID PO 10/11/24 22:00 10/18/24 21:24 5 MG Furosemide 80 mg DAILY IV 10/13/24 10:00 10/18/24 09:53 80 MG Metoprolol Tartrate 25 mg BID PO 10/15/24 22:00 10/18/24 21:24 25 MG Lactulose 30 ml Q6HR PO 10/15/24 18:00 10/17/24 11:40 30 ML Oxycodone/ Acetaminophen 1 tab Q6HP PRN PO 10/15/24 16:30 10/18/24 21:23 1 TAB Amiodarone HCl 200 mg Q12HR PO 10/18/24 22:00 10/18/24 21:22 200 MG objective Gen.: Patient lying in bed in no apparent distress. On supplemental oxygen. Head: Normocephalic, atraumatic. Eyes: EOMI/PERRLA. Ears: Normal hearing. Normal anatomy. Neck/trachea: Trachea midline, supple. Nose: Normal external anatomy. Mouth: Moist mucous membranes. Chest: Decreased air entry bilaterally. No wheezing or rhonchi. Cardiovascular: Positive S1, positive S2. Regular rate and rhythm. Abdomen: Positive bowel sounds in all 4 quadrants. Soft, non-tender, non- distended. : Deferred. Rectal: Deferred. Skin: Warm, dry. Intact. Extremities: 2+ radial pulses bilaterally. No lower extremity edema. Neuro: Awake, alert, oriented x3. No gross motor or sensory deficits. Cranial nerves II through XII intact. Gait not assessed. laboratory and microbiology Laboratory Tests 10/16/24 04:53 10/15/24 06:46 Test 10/16/24 04:53 Range/Units Serum Glucose 84 74-106 mg/dL Assessment/Plan Impression: Acute hypoxic respiratory failure Dependence on supplemental oxygen Pulmonary embolism AFib with RVR Pulmonary hypertension, RVSP 69 mmHg Hx of nicotine dependence Adenocarcinoma of lung Events: Remains on supplemental oxygen, 3 LPM NC Taper O2 as tolerated Continue bronchodilators - on albuterol Continue antibiotics On amiodarone PO. Eliquis BID for anticoagulation for PE. Pain control - on Percocet Avoid oversedation Diurese w/ Lasix Monitor renal function. Monitor electrolytes. Supplement as necessary. Monitor ins and outs. Protonix for GI ppx S/p lung biopsy Reviewed results from [facility]. Recommend outpatient Oncology evaluation for adenocarcinoma of the lung - awaiting transfer. Plan to obtain outpatient PET CT scan for further evaluation Labs and imaging reviewed. Rest of plan as noted below. Plan: Supplemental oxygen Titrate to keep O2 sats above 92%. Taper O2 as tolerated. Off heparin drip. Continue Eliquis Follow up Echocardiogram, LVEF of 40% to 45% Follow up Cardiology recs Continue bronchodilators Continue antibiotics Incentive spirometry Protonix for GI ppx Pain control Avoid oversedation Diurese w/ Lasix Monitor renal function. Monitor electrolytes. Supplement as necessary. Monitor ins and outs. Prognosis: Poor given patient's multiple co-morbidities. Rest of plan per hospitalist and other consultants. Thank you Dr. Branham for allowing me to participate in this patient's care. Further recommendations will depend on the patient's clinical course. Please do not hesitate to contact me if you have any questions or concerns. This medical document was created using an electronic medical record system with [employer] system. Although these documentations are being carefully reviewed, there may still be some phonetic and typographical changes. The errors are purely typographical, due to imperfection on the software program, and do not reflect any compromise in the patient's medical care. Dietary Evaluation Review Comments: 1) Ensure enlive 240ml BID 2) Continue current POC Expected Outcomes/Goals: FU 3-5 days to meet at least 75% estimated needs Plan discussed with: Other (RUTH Black) FIDEL COLEMAN MD Oct 18, 2024 23:51
[2024-10-19] VITALS (17 sets, daily range): BP systolic 104–117; BP diastolic 65–79; PULSE 100–127; RESP 18–20; TEMP 97.6–98.5; O2SAT 90–98
--- NOTE | 2024-10-19 10:16 | DVHDS2 ---
Discharge Summary Date of Admission Oct 10, 2024 at 17:44 Date of Discharge: Oct 19, 2024 Admitting Diagnosis Acute hypoxic respiratory failure Labs/Diagnostic Data: Laboratory Results Test 10/16/24 04:53 10/15/24 06:46 10/13/24 02:59 10/12/24 02:48 Sodium Level 136 mmol/L (136-145) Potassium Level 3.4 mmol/L (3.5-5.1) Chloride Level 96 mmol/L (98-107) Carbon Dioxide Level 31 mmol/L (20-31) Anion Gap 9 (5-15) Blood Urea Nitrogen 15 mg/dL (9-23) Creatinine 0.74 mg/dL (0.550-1.02) Glomerular Filtration Rate Calc 86 mL/min (>90) BUN/Creatinine Ratio 20.3 (10.0-20.0) Serum Glucose 84 mg/dL (74-106) Calcium Level 8.9 mg/dL (8.7-10.4) White Blood Count 10.8 10^3/uL (4.4-10.8) Red Blood Count 4.42 10^6/uL (4.0-5.20) Hemoglobin 13.6 g/dL (12.2-16.2) Hematocrit 39.5 % (36.0-46.0) Mean Corpuscular Volume 89.4 fL (80.0-100.0) Mean Corpuscular Hemoglobin 30.7 pg (28.0-32.0) Mean Corpuscular Hemoglobin Concent 34.3 g/dL (32.0-36.0) Red Cell Distribution Width 16.4 % (11.8-14.3) Platelet Count 181 10^3/uL (140-450) Mean Platelet Volume 7.5 fL (6.9-10.8) Neutrophils (%) (Auto) 82.2 % (37.0-80.0) Lymphocytes (%) (Auto) 9.0 % (10.0-50.0) Monocytes (%) (Auto) 7.0 % (0.0-12.0) Eosinophils (%) (Auto) 1.5 % (0.0-7.0) Basophils (%) (Auto) 0.3 % (0.0-2.0) Neutrophils # (Auto) 8.9 10 ^3/uL (1.6-8.6) Lymphocytes # (Auto) 1.0 10 ^3/uL (0.4-5.4) Monocytes # (Auto) 0.8 10 ^3/uL (0-1.3) Eosinophils # (Auto) 0.2 10 ^3/uL (0-0.8) Basophils # (Auto) 0 10 ^3/uL (0-0.2) Nucleated Red Blood Cells 0.0 % Phosphorus Level 4.0 mg/dL (2.4-5.1) Magnesium Level 2.0 mg/dL (1.6-2.6) Prothrombin Time 12.3 sec (9.3-11.8) Prothrombin Time INR 1.18 (0.9-1.15) Activated Partial Thromboplast Time 32.1 SEC (24.5-34.5) Test 10/11/24 03:05 10/10/24 17:38 10/10/24 14:48 10/10/24 11:30 Total Bilirubin 0.5 mg/dL (0.2-1.0) Aspartate Amino Transferase (AST) 33 U/L (13-40) Alanine Aminotransferase (ALT) 11 U/L (7-40) Alkaline Phosphatase 113 U/L (46-116) Total Protein 5.7 g/dL (5.7-8.2) Albumin 3.4 g/dL (3.2-4.8) Erythrocyte Sedimentation Rate 10 mm/hr (0-20) Lactate Dehydrogenase U/L (120-246) Carcinoembryonic Antigen 19.37 ng/mL (<=5.0) CA 125 Antigen 918.0 U/mL (0.0-38.1) Blood Gas Specimen Type Arterial Blood Gas Sample Site Right radial Blood Gas Patient Temperature 37.0 Arterial Blood Date Drawn [id number] Arterial Blood pH 7.391 (7.350-7.450) Arterial Blood Partial Pressure CO2 41.7 mmHg (32.0-45.0) Arterial Blood Partial Pressure O2 65.8 mmHg (83.0-108.0) Arterial Blood HCO3 24.7 mmol/L (21.0-28.0) Arterial Blood Oxygen Saturation 91.5 % (94.0-98.0) Arterial Blood Base Excess -0.3 mmol/L (-2.0-3.0) Arterial Blood Oxyhemoglobin 89.8 % (94.0-98.0) Arterial Blood Carboxyhemoglobin 1.4 % (0.5-1.5) Arterial Blood Methemoglobin 0.5 % (0.0-1.5) Alonso Test Yes Blood Gas Total Hemoglobin 13.70 g/dL (12.0-16.0) Blood Gas Liter Flow 3.00 Blood Gas Modality Nasal cannula FiO2 % 32.0 Urine Color Dark-brown (Yellow) Urine Clarity Ex.turbid (Clear) Urine pH 5.5 (5.0-9.0) Urine Specific [place] 1.029 (1.001-1.035) Urine Protein 1+ (Negative) Urine Ketones Negative (Negative) Urine Blood Negative /uL (Negative) Urine Nitrite Negative (Negative) Urine Bilirubin Negative (Negative) Urine Urobilinogen Normal mg/dL (Negative) Urine Leukocyte Esterase 2+ /uL (Negative) Urine RBC 5 /hpf (0 - 4) Urine Microscopic WBC 27 /HPF (0-5) Urine Squamous Epithelial Cells Few /hpf (<5) Urine Bacteria Few /hpf (None Seen) Urine Mucus Many (None Seen) Urine Glucose Trace mg/dL (Normal) Test 10/10/24 10:58 10/10/24 07:30 Troponin I High Sensitivity 1987 ng/L (</=34) D-Dimer, Quantitative 21.30 mg/L FEU (0.0-0.49) B-Type Natriuretic Peptide 405.04 pg/mL (0-100) Thyroid Stimulating Hormone (TSH) 2.59 uIU/mL (0.55-4.78) Other Laboratory Tests 10/16/24 04:53 10/15/24 06:46 Brief Hx & Hospital Course: History of Present Illness Partner, Maldonado Reynoso is a 69-year-old female with past medical history of hypertension, hyperlipidemia, COPD, pneumonia, AFib, and CHF who presents to the ED with shortness of breath with nausea, vomiting, and dizziness since 4:00 a.m. this morning. Patient was brought in by EMS from home. Patient reports that she has been noncompliant with her medications. Patient reports that she took her Lasix yesterday but not today. Her daughter Megan is at the bedside. Patient reports that she lives at home with her family. Also does not use any DME is when she ambulates. She reports that she uses 3 L of oxygen via nasal cannula continuously. She also states that she was at [facility] recently on October 05 and had a lung biopsy done for the right lower lobe mass. Patient also reports prior to that she was at [facility] in April and was diagnosed with CHF and AFib. Patient states that she used to smoke 3/4 of pack of cigarettes per day but quit recently. She denies any recent trauma or injury, recent travels, fever, chills, lightheadedness, weakness, abdominal pain, chest pain, or urinary symptoms. Patient's daughter Megan states that she had the pure wick for a long duration of time. She does report that her mom has lung cancer. Course of hospitalization: Patient was initially started on anticoagulation with heparin drip, with the patient transitioning to Eliquis. Patient reports that she was on Eliquis prior to coming in the hospital. 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 Biopsy was taken from her rib. Patient was also noted to have large left lower lobe mass. Patient's AFib was controlled with amiodarone drip, which was switched to amiodarone p.o.. Patient had persistent left upper quadrant pain while in the hospital, for which patient had CT angiogram of the abdomen and pelvis which did reveal multiple splenic infarcts. Long discussion was made with the patient and her two daughters regarding plan of care. At this time she is stable to be discharged home. Social service consultation was placed for [facility] nurse case manager to expedite referral to Oncology Services. Patient will be discharged home and continued on Percocet 5/325 q.6 hours as needed for [id number] pain, amiodarone 200 mg p.o. b.i.d., and continuation of all previous home medications. Patient was instructed to take [id number] laxatives as needed. All parties are agreeable with discharge plan. Physical examination General: Alert and Oriented x3. No acute distress. Well-nourished. Eyes: EOMI. Anicteric. HENT: Moist mucous membranes. Lungs: Clear to auscultation bilaterally. No accessory muscle use. Cardiovascular: Regular rate and rhythm. No murmur. No JVD. Abdomen: Soft, non-tender and non-distended. No palpable masses. Extremities: No edema. Non-tender. Skin: No rashes or lesions. Warm. Neurologic: No focal neurological deficits. CN II-XII grossly intact, but not individually tested. Psychiatric: Cooperative. Appropriate mood and affect. Total time spent with patient discussing and formulating plan of care: 35 minutes. This medical document was created using an electronic medical record system with [employer] dictation system. Although this document has been carefully reviewed, there may still be some phonetic and typographical errors. These areas are purely typographical due to imperfections of the software programs, and do not reflect any compromise in the patient's medical care. Condition at Discharge: Poor Final Diagnosis/Problems List BILIATERAL PE Secondary diagnosis: -AFib with RVR -bilateral pulmonary embolism -NSTEMI, probably type 2 -pulmonary mass, biopsy positive for moderately differentiated adenocarcinoma -acute hypoxic respiratory failure -emphysema -history of anticoagulation with Eliquis. Patient uncertain of primary diagnosis -primary hypertension -acute diastolic heart failure -splenic infarct Discharge Disposition: Home Discharge Instruct/Medications Diet: Cardiac 2g Na,low cholest Activity: No Restrictions, As Tolerated Follow Up/Referral: Follow up with PCP in one two weeks Follow up with outpatient oncology Medications: Continue anticoagulation with Eliquis Percocet 5/325 q.8 hours as needed for pain Amiodarone 200 mg p.o. b.i.d. Scheduled Amiodarone Hcl (Amiodarone Hcl), 200 MG PO BID Atorvastatin Calcium (Atorvastatin Calcium), 1 TAB PO DAILY, (Reported) Cyclobenzaprine HCl (Cyclobenzaprine Hydrochlo), 1 TAB PO QAM, (Reported) Oxycodone W/ Acetaminophen (Percocet 5/325MG), 1 TAB PO TID Scheduled PRN Hydralazine Hcl (Hydralazine Hcl), 1 TAB PO Q6HPRN PRN, (Reported) Hydrocodone-Acetaminophen (Hydrocodone Bitartrate/AC 10-325 mg), 1 TAB PO Q6HPRN PRN for PAIN SCALE 7 THRU 10, (Reported) 36 Discharge Statement: "Patient was advised to return to the ER or call 911 if any headaches, dizziness, shortness of breath, chest pain, abdominal pain, bleeding, fevers, or worsening of medical condition. Patient was counseled about treatment plan, medications, possible side effects, patientverbalized understanding. All questions were answered to the best of my ability. This discharge took greater then 30 minutes in planning, reviewing documentation, counseling the patient, and discussing with other team members." ASSESSMENT ASSESSMENT Assessment [facility] Date of Service: Oct 19, 2024 Billing Provider: JOSE MIGUEL SOMERS NP Common Visit Codes: 16730-IAO/OBS DISCH DAY >30min JOSE MIGUEL SOMERS NP Oct 19, 2024 10:16
[2024-10-19] MEDS ORDERED: DOXY100C79 PO (12:01)
--- NOTE | 2024-10-19 13:28 | DVHPN2 ---
Progress Note - Dictate Date Seen: Oct 19, 2024 Medical Necessity Reason Pt with a Central, PICC or Fol: Yes The following are medically ne: Rojas Catheter Reason for rojas catheter: Strict I&O vital signs Vital Sign Date Time Temp Pulse Resp B/P (MAP) Pulse Ox O2 Delivery O2 Flow Rate FiO2 10/19/24 10:20 121 18 97 10/19/24 10:14 Nasal Cannula 3.0 10/19/24 10:14 32 10/19/24 09:00 98.1 108/69 (82) 98.1 Total Intake and Output 10/18/24 10/18/24 10/19/24 15:00 23:00 07:00 Intake Total 50 ml 800 ml 600 ml Output Total 1400 ml 400 ml Balance 50 ml -600 ml 200 ml medications Current Medications Medications Dose Ordered Sig/Naldo Route Start Time Stop Time Status Last Admin Dose Admin Atorvastatin Calcium 40 mg HS PO 10/10/24 22:00 Cancel Empaglifozin 10 mg DAILY PO 10/11/24 10:00 10/19/24 09:40 10 MG Ceftriaxone Sodium 50 ml @ 100 mls/hr DAILY@09 IV 10/10/24 17:15 10/19/24 09:40 100 MLS/HR Albuterol 2.5 mg Q4HR NEB 10/10/24 18:00 10/19/24 10:14 2.5 MG Ipratropium [place] 0.5 mg Q4HR NEB 10/10/24 18:00 10/19/24 10:14 0.5 MG Ondansetron HCl 4 mg Q4HP PRN IV 10/10/24 17:45 10/19/24 04:47 4 MG Acetaminophen 650 mg Q6HP PRN PO 10/10/24 17:45 Nitroglycerin 0.4 mg Q5MINP PRN SL 10/10/24 17:45 Morphine Sulfate 2 mg Q30M PRN IV 10/10/24 17:45 10/11/24 10:04 2 MG Atorvastatin Calcium 20 mg HS PO 10/11/24 22:00 10/18/24 21:23 20 MG Furosemide 40 mg BIDD IV 10/10/24 18:00 UNV Pantoprazole Sodium 40 mg DAILY IV 10/11/24 10:00 10/19/24 09:40 40 MG Apixaban 5 mg BID PO 10/11/24 22:00 10/19/24 09:40 5 MG Furosemide 80 mg DAILY IV 10/13/24 10:00 10/18/24 09:53 80 MG Metoprolol Tartrate 25 mg BID PO 10/15/24 22:00 10/18/24 21:24 25 MG Lactulose 30 ml Q6HR PO 10/15/24 18:00 10/19/24 01:03 30 ML Oxycodone/ Acetaminophen 1 tab Q6HP PRN PO 10/15/24 16:30 10/19/24 09:50 1 TAB Amiodarone HCl 200 mg Q12HR PO 10/18/24 22:00 10/19/24 09:40 200 MG laboratory and microbiology Laboratory Tests 10/16/24 04:53 10/15/24 06:46 Test 10/16/24 04:53 Range/Units Serum Glucose 84 74-106 mg/dL Assessment/Plan Impression: Acute hypoxic respiratory failure Dependence on supplemental oxygen Pulmonary embolism AFib with RVR Pulmonary hypertension, RVSP 69 mmHg Hx of nicotine dependence Adenocarcinoma of lung Events: Remains on supplemental oxygen, 3 LPM NC Taper O2 as tolerated Continue bronchodilators - on albuterol Continue antibiotics On amiodarone PO. Eliquis BID for anticoagulation for PE. Pain control - on Percocet Avoid oversedation Diurese w/ Lasix Monitor renal function. Monitor electrolytes. Supplement as necessary. Monitor ins and outs. Protonix for GI ppx S/p lung biopsy Dietary Evaluation Review Comments: 1) Ensure enlive 240ml BID 2) Continue current POC Expected Outcomes/Goals: FU 3-5 days to meet at least 75% estimated needs Plan discussed with: Patient RUI OCHOA MD Oct 19, 2024 13:28
--- NOTE | 2024-10-19 23:13 | DVHPN2 ---
Progress Note - Dictate Date Seen: Oct 19, 2024 Medical Necessity Reason Pt with a Central, PICC or Fol: Yes The following are medically ne: Rojas Catheter Reason for rojas catheter: Strict I&O Subjective Patient was seen and evaluated in follow up. Patient is on 3 LPM NC. Patient complains of feeling nauseous. Patient refusing her medications. Pending HH and home oxygen arrangements. Telemetry reviewed. vital signs Vital Sign Date Time Temp Pulse Resp B/P (MAP) Pulse Ox O2 Delivery O2 Flow Rate FiO2 10/19/24 10:20 121 18 97 10/19/24 10:14 Nasal Cannula 3.0 10/19/24 10:14 32 10/19/24 09:00 98.1 108/69 (82) 98.1 Total Intake and Output 10/18/24 10/18/24 10/19/24 15:00 23:00 07:00 Intake Total 50 ml 800 ml 600 ml Output Total 1400 ml 400 ml Balance 50 ml -600 ml 200 ml medications Current Medications Medications Dose Ordered Sig/Naldo Route Start Time Stop Time Status Last Admin Dose Admin Atorvastatin Calcium 40 mg HS PO 10/10/24 22:00 Cancel Empaglifozin 10 mg DAILY PO 10/11/24 10:00 10/19/24 09:40 10 MG Ceftriaxone Sodium 50 ml @ 100 mls/hr DAILY@09 IV 10/10/24 17:15 10/19/24 09:40 100 MLS/HR Albuterol 2.5 mg Q4HR NEB 10/10/24 18:00 10/19/24 10:14 2.5 MG Ipratropium [place] 0.5 mg Q4HR NEB 10/10/24 18:00 10/19/24 10:14 0.5 MG Ondansetron HCl 4 mg Q4HP PRN IV 10/10/24 17:45 10/19/24 04:47 4 MG Acetaminophen 650 mg Q6HP PRN PO 10/10/24 17:45 Nitroglycerin 0.4 mg Q5MINP PRN SL 10/10/24 17:45 Morphine Sulfate 2 mg Q30M PRN IV 10/10/24 17:45 10/11/24 10:04 2 MG Atorvastatin Calcium 20 mg HS PO 10/11/24 22:00 10/18/24 21:23 20 MG Furosemide 40 mg BIDD IV 10/10/24 18:00 UNV Pantoprazole Sodium 40 mg DAILY IV 10/11/24 10:00 10/19/24 09:40 40 MG Apixaban 5 mg BID PO 10/11/24 22:00 10/19/24 09:40 5 MG Furosemide 80 mg DAILY IV 10/13/24 10:00 10/18/24 09:53 80 MG Metoprolol Tartrate 25 mg BID PO 10/15/24 22:00 10/18/24 21:24 25 MG Lactulose 30 ml Q6HR PO 10/15/24 18:00 10/19/24 01:03 30 ML Oxycodone/ Acetaminophen 1 tab Q6HP PRN PO 10/15/24 16:30 10/19/24 09:50 1 TAB Amiodarone HCl 200 mg Q12HR PO 10/18/24 22:00 10/19/24 09:40 200 MG objective GENERAL: Alert and oriented x 3. No acute distress. EYES: PERRL, EOMI. Anicteric. HENT: Moist mucous membranes. LUNGS: Decreased breath sounds. CARDIOVASCULAR: Irregular rate and rhythm. A-fib RVR. ABDOMEN: Soft, nontender and nondistended. EXTREMITIES: No edema. NEUROLOGIC: No focal neurological deficits. SKIN: Warm, dry. laboratory and microbiology Laboratory Tests 10/16/24 04:53 10/15/24 06:46 Test 10/16/24 04:53 Range/Units Serum Glucose 84 74-106 mg/dL Problem List Acute on chronic decompensated HFrEF, NYHA Class III-IV. Acute hypoxic respiratory failure secondary to above. Paroxysmal atrial fibrillation with rapid ventricular response, uncontrolled rate (on amiodarone/Eliquis therapy). Elevated D-dimer rule out PE/DVT. NSTEMI, likely type 2 secondary to above. Hypertension. Dyslipidemia. Suboptimal medical therapy. Assessment/Plan Continued all current supportive medical care. Tylenol #3 for pain management. Eliquis. IV antibiotics as ordered. GI prophylactics. Amiodarone. Nitro SL. Nebulized breathing treatments. Additional plan as per the hospital course. Dietary Evaluation Review Comments: 1) Ensure enlive 240ml BID 2) Continue current POC Expected Outcomes/Goals: FU 3-5 days to meet at least 75% estimated needs Plan discussed with: Patient ASHANTI FERNANDEZ MD Oct 19, 2024 12:17
[2024-10-20] VITALS (13 sets, daily range): BP systolic 90–122; BP diastolic 62–73; PULSE 82–113; RESP 14–20; TEMP 96.8–98.9; O2SAT 91–96
--- NOTE | 2024-10-20 13:29 | DVHPN2 ---
Progress Note - Dictate Date Seen: Oct 20, 2024 Medical Necessity Reason Pt with a Central, PICC or Fol: Yes The following are medically ne: Rojas Catheter Reason for rojas catheter: Strict I&O vital signs Vital Sign Date Time Temp Pulse Resp B/P (MAP) Pulse Ox O2 Delivery O2 Flow Rate FiO2 10/20/24 10:00 97 99/57 10/20/24 09:34 95 Room Air* 0 21 10/20/24 09:00 96.8 20 96.8 Total Intake and Output 10/19/24 10/19/24 10/20/24 15:00 23:00 07:00 Intake Total 50 ml 537 ml 800 ml Output Total 400 ml 400 ml Balance 50 ml 137 ml 400 ml medications Current Medications Medications Dose Ordered Sig/Nadlo Route Start Time Stop Time Status Last Admin Dose Admin Atorvastatin Calcium 40 mg HS PO 10/10/24 22:00 Cancel Empaglifozin 10 mg DAILY PO 10/11/24 10:00 10/19/24 09:40 10 MG Ceftriaxone Sodium 50 ml @ 100 mls/hr DAILY@09 IV 10/10/24 17:15 10/20/24 10:15 100 MLS/HR Albuterol 2.5 mg Q4HR NEB 10/10/24 18:00 10/19/24 14:52 2.5 MG Ipratropium [place] 0.5 mg Q4HR NEB 10/10/24 18:00 10/19/24 14:52 0.5 MG Ondansetron HCl 4 mg Q4HP PRN IV 10/10/24 17:45 10/19/24 04:47 4 MG Acetaminophen 650 mg Q6HP PRN PO 10/10/24 17:45 Nitroglycerin 0.4 mg Q5MINP PRN SL 10/10/24 17:45 Atorvastatin Calcium 20 mg HS PO 10/11/24 22:00 10/19/24 21:47 20 MG Furosemide 40 mg BIDD IV 10/10/24 18:00 UNV Pantoprazole Sodium 40 mg DAILY IV 10/11/24 10:00 10/20/24 10:18 40 MG Apixaban 5 mg BID PO 10/11/24 22:00 10/20/24 10:17 5 MG Furosemide 80 mg DAILY IV 10/13/24 10:00 10/18/24 09:53 80 MG Metoprolol Tartrate 25 mg BID PO 10/15/24 22:00 10/19/24 21:46 25 MG Lactulose 30 ml Q6HR PO 10/15/24 18:00 10/20/24 12:40 30 ML Oxycodone/ Acetaminophen 1 tab Q6HP PRN PO 10/15/24 16:30 10/20/24 12:40 1 TAB Amiodarone HCl 200 mg Q12HR PO 10/18/24 22:00 10/20/24 10:17 200 MG laboratory and microbiology Laboratory Tests 10/16/24 04:53 10/15/24 06:46 Test 10/16/24 04:53 Range/Units Serum Glucose 84 74-106 mg/dL Assessment/Plan Impression: Acute hypoxic respiratory failure Dependence on supplemental oxygen Pulmonary embolism AFib with RVR Pulmonary hypertension, RVSP 69 mmHg Hx of nicotine dependence Adenocarcinoma of lung Patient seen and examined Events Low oxygen requierments On 3 liters nasal cannula No distress Labs and imaging reviewed Management Supplemental oxygen Taper O2 as tolerated Continue bronchodilators - on albuterol Continue antibiotics On amiodarone PO. Eliquis BID for anticoagulation for PE. Pain control - on Percocet Avoid oversedation Diurese w/ Lasix Monitor renal function. Monitor electrolytes. Supplement as necessary. Monitor ins and outs. Protonix for GI ppx Okay to discharge from pulmonary standpoint S/p lung biopsy Dietary Evaluation Review Comments: 1) Ensure enlive 240ml BID 2) Continue current POC Expected Outcomes/Goals: FU 3-5 days to meet at least 75% estimated needs Plan discussed with: Patient RUI OCHOA MD Oct 20, 2024 13:29
--- NOTE | 2024-10-20 14:54 | DVHPN2 ---
Subjective Patient continues to have of the left upper quadrant pain Reviewed: Care Plan, H&P, Medications Changes from previous H/P or p: No Changes General: Per HPI Respiratory: Shortness of breath Gastrointestinal: Nausea, Vomiting Objective Vitals Vital Signs Date Time Temp Pulse Resp B/P (MAP) Pulse Ox O2 Delivery O2 Flow Rate FiO2 10/20/24 14:39 108 18 96 10/20/24 14:32 Nasal Cannula 3.0 10/20/24 14:32 32 10/20/24 13:00 97.0 112/67 (82) 97.0 Intake/Output Intake and Output 10/20/24 07:00 Intake Total 1387 ml Output Total 800 ml Balance 587 ml Intake Oral 1337 ml IV Total 50 ml Output Urine Total 800 ml General Appearance: Alert, Oriented X3, Cooperative, No acute distress HEENT: Atraumatic, PERRLA Lungs: Clear to auscultation, Normal air movement Cardiovascular: Normal S1, Normal S2, Other (AFib with RVR) Abdomen: Normal bowel sounds, Soft, No tenderness Musculoskeletal: Normal sensory function, Normal motor function Neuro: Normal gait, Normal speech Skin: Dry, Intact Psych/Mental Status: Mental status NL, Mood NL Medications Current Medications Medications Dose Ordered Sig/Naldo Route Start Time Stop Time Status Last Admin Dose Admin Atorvastatin Calcium 40 mg HS PO 10/10/24 22:00 Cancel Empaglifozin 10 mg DAILY PO 10/11/24 10:00 10/19/24 09:40 10 MG Ceftriaxone Sodium 50 ml @ 100 mls/hr DAILY@09 IV 10/10/24 17:15 10/20/24 10:15 100 MLS/HR Albuterol 2.5 mg Q4HR NEB 10/10/24 18:00 10/20/24 14:32 2.5 MG Ipratropium [place] 0.5 mg Q4HR NEB 10/10/24 18:00 10/20/24 14:32 0.5 MG Ondansetron HCl 4 mg Q4HP PRN IV 10/10/24 17:45 10/19/24 04:47 4 MG Acetaminophen 650 mg Q6HP PRN PO 10/10/24 17:45 Nitroglycerin 0.4 mg Q5MINP PRN SL 10/10/24 17:45 Atorvastatin Calcium 20 mg HS PO 10/11/24 22:00 10/19/24 21:47 20 MG Furosemide 40 mg BIDD IV 10/10/24 18:00 UNV Pantoprazole Sodium 40 mg DAILY IV 10/11/24 10:00 10/20/24 10:18 40 MG Apixaban 5 mg BID PO 10/11/24 22:00 10/20/24 10:17 5 MG Furosemide 80 mg DAILY IV 10/13/24 10:00 10/18/24 09:53 80 MG Metoprolol Tartrate 25 mg BID PO 10/15/24 22:00 10/19/24 21:46 25 MG Lactulose 30 ml Q6HR PO 10/15/24 18:00 10/20/24 12:40 30 ML Oxycodone/ Acetaminophen 1 tab Q6HP PRN PO 10/15/24 16:30 10/20/24 12:40 1 TAB Amiodarone HCl 200 mg Q12HR PO 10/18/24 22:00 10/20/24 10:17 200 MG Laboratory Results Laboratory Tests 10/15/24 06:46 10/16/24 04:53 Urinalysis Test 10/10/24 11:30 Urine Color Dark-brown (Yellow) Urine Clarity Ex.turbid (Clear) Urine pH 5.5 (5.0-9.0) Urine Specific [place] 1.029 (1.001-1.035) Urine Protein 1+ (Negative) H Urine Ketones Negative (Negative) Urine Blood Negative /uL (Negative) Urine Nitrite Negative (Negative) Urine Bilirubin Negative (Negative) Urine Urobilinogen Normal mg/dL (Negative) Urine Leukocyte Esterase 2+ /uL (Negative) Urine RBC 5 /hpf (0 - 4) Urine Microscopic WBC 27 /HPF (0-5) H Urine Squamous Epithelial Cells Few /hpf (<5) Urine Bacteria Few /hpf (None Seen) H Urine Mucus Many (None Seen) Urine Glucose Trace mg/dL (Normal) Microbiology Microbiology Date/Time Source Procedure Growth Status 10/11/24 00:20 Nose MRSA Screen - Final Complete Labs and/or images reviewed: Labs reviewed by me, Image(s) reviewed by me Assessment/Plan Assessment/Plan Impression: -AFib with RVR -bilateral pulmonary embolism -NSTEMI, probably type 2 -pulmonary mass, biopsy positive for moderately differentiated adenocarcinoma -acute hypoxic respiratory failure -emphysema -history of anticoagulation with Eliquis. Patient uncertain of primary diagnosis -primary hypertension -acute diastolic heart failure -splenic infarct Plan: Events: Plans to discharge home. Awaiting for transportation oxygen and ride. -continue current rate control agents -pulmonology consultation : Recommendations reviewed -continue Rocephin -continue anticoagulation with Eliquis -bowel regimen -social service consultation for oncology consultation as outpatient. Total time spent with patient discussing and formulating plan of care: 35 minutes. This medical document was created using an electronic medical record system with [employer] dictation system. Although this document has been carefully reviewed, there may still be some phonetic and typographical errors. These areas are purely typographical due to imperfections of the software programs, and do not reflect any compromise in the patient's medical care. Plan discussed with: Patient, Other (RN) My Orders Orders - JOSE MIGUEL SOMERS NP Procedure Category Date Status Time Discontinue Saavedra EDINSON 10/19/24 In Process Catheter 16:17 Date of Service: Oct 20, 2024 Billing Provider: JOSE MIGUEL SOMERS NP Common Visit Codes: [id number] INP/OBS CARE(HIGH) JOSE MIGUEL SOMERS NP Oct 20, 2024 14:54
--- NOTE | 2024-10-20 23:39 | DVHPN2 ---
Progress Note - Dictate Date Seen: Oct 20, 2024 Medical Necessity Reason Pt with a Central, PICC or Fol: Yes The following are medically ne: Rojas Catheter Reason for rojas catheter: Strict I&O Subjective Patient was seen and evaluated in follow up. No overnight events. Patient is on 4 LPM NC. Patient continues refuse her medications. Upon patient's grandson picking patient up for discharge the patient's oxygen tank is empty. Awaiting oxygen tank delivery. Telemetry reviewed. vital signs Vital Sign Date Time Temp Pulse Resp B/P (MAP) Pulse Ox O2 Delivery O2 Flow Rate FiO2 10/20/24 10:00 97 99/57 10/20/24 09:34 95 Room Air* 0 21 10/20/24 09:00 96.8 20 96.8 Total Intake and Output 10/19/24 10/19/24 10/20/24 15:00 23:00 07:00 Intake Total 50 ml 537 ml 800 ml Output Total 400 ml 400 ml Balance 50 ml 137 ml 400 ml medications Current Medications Medications Dose Ordered Sig/Naldo Route Start Time Stop Time Status Last Admin Dose Admin Atorvastatin Calcium 40 mg HS PO 10/10/24 22:00 Cancel Empaglifozin 10 mg DAILY PO 10/11/24 10:00 10/19/24 09:40 10 MG Ceftriaxone Sodium 50 ml @ 100 mls/hr DAILY@09 IV 10/10/24 17:15 10/20/24 10:15 100 MLS/HR Albuterol 2.5 mg Q4HR NEB 10/10/24 18:00 10/19/24 14:52 2.5 MG Ipratropium [place] 0.5 mg Q4HR NEB 10/10/24 18:00 10/19/24 14:52 0.5 MG Ondansetron HCl 4 mg Q4HP PRN IV 10/10/24 17:45 10/19/24 04:47 4 MG Acetaminophen 650 mg Q6HP PRN PO 10/10/24 17:45 Nitroglycerin 0.4 mg Q5MINP PRN SL 10/10/24 17:45 Atorvastatin Calcium 20 mg HS PO 10/11/24 22:00 10/19/24 21:47 20 MG Furosemide 40 mg BIDD IV 10/10/24 18:00 UNV Pantoprazole Sodium 40 mg DAILY IV 10/11/24 10:00 10/20/24 10:18 40 MG Apixaban 5 mg BID PO 10/11/24 22:00 10/20/24 10:17 5 MG Furosemide 80 mg DAILY IV 10/13/24 10:00 10/18/24 09:53 80 MG Metoprolol Tartrate 25 mg BID PO 10/15/24 22:00 10/19/24 21:46 25 MG Lactulose 30 ml Q6HR PO 10/15/24 18:00 10/20/24 12:40 30 ML Oxycodone/ Acetaminophen 1 tab Q6HP PRN PO 10/15/24 16:30 10/20/24 12:40 1 TAB Amiodarone HCl 200 mg Q12HR PO 10/18/24 22:00 10/20/24 10:17 200 MG objective GENERAL: Alert and oriented x 3. No acute distress. EYES: PERRL, EOMI. Anicteric. HENT: Moist mucous membranes. LUNGS: Decreased breath sounds. CARDIOVASCULAR: Irregular rate and rhythm. A-fib RVR. ABDOMEN: Soft, nontender and nondistended. EXTREMITIES: No edema. NEUROLOGIC: No focal neurological deficits. SKIN: Warm, dry. laboratory and microbiology Laboratory Tests 10/16/24 04:53 10/15/24 06:46 Test 10/16/24 04:53 Range/Units Serum Glucose 84 74-106 mg/dL Problem List Acute on chronic decompensated HFrEF, NYHA Class III-IV. Acute hypoxic respiratory failure secondary to above. Paroxysmal atrial fibrillation with rapid ventricular response, uncontrolled rate (on amiodarone/Eliquis therapy). Elevated D-dimer rule out PE/DVT. NSTEMI, likely type 2 secondary to above. Hypertension. Dyslipidemia. Suboptimal medical therapy. Assessment/Plan Continued all current supportive medical care. Tylenol #3 for pain management. Eliquis. IV antibiotics as ordered. GI prophylactics. Amiodarone. Nitro SL. Additional plan as per the hospital course. Dietary Evaluation Review Comments: 1) Ensure enlive 240ml BID 2) Continue current POC Expected Outcomes/Goals: FU 3-5 days to meet at least 75% estimated needs Plan discussed with: Patient ASHANTI FERNANDEZ MD Oct 20, 2024 13:20
[2024-10-21] VITALS (13 sets, daily range): BP systolic 99–113; BP diastolic 63–91; PULSE 59–113; RESP 14–18; TEMP 97.1–97.6; O2SAT 91–100
--- NOTE | 2024-10-21 13:13 | DVHPN2 ---
Progress Note - Dictate Date Seen: Oct 21, 2024 Medical Necessity Reason Pt with a Central, PICC or Fol: Yes The following are medically ne: Rojas Catheter Reason for rojas catheter: Strict I&O vital signs Vital Sign Date Time Temp Pulse Resp B/P (MAP) Pulse Ox O2 Delivery O2 Flow Rate FiO2 10/21/24 13:11 108 16 100 10/21/24 13:05 Nasal Cannula 4.0 10/21/24 13:05 36 10/21/24 09:24 100/63 10/21/24 09:00 97.1 97.1 Total Intake and Output 10/20/24 10/20/24 10/21/24 15:00 23:00 07:00 Intake Total 50 ml 200 ml 500 ml Output Total 100 ml 350 ml Balance -50 ml -150 ml 500 ml medications Current Medications Medications Dose Ordered Sig/Naldo Route Start Time Stop Time Status Last Admin Dose Admin Atorvastatin Calcium 40 mg HS PO 10/10/24 22:00 Cancel Empaglifozin 10 mg DAILY PO 10/11/24 10:00 10/21/24 09:24 10 MG Ceftriaxone Sodium 50 ml @ 100 mls/hr DAILY@09 IV 10/10/24 17:15 10/20/24 10:15 100 MLS/HR Albuterol 2.5 mg Q4HR NEB 10/10/24 18:00 10/21/24 13:05 2.5 MG Ipratropium [place] 0.5 mg Q4HR NEB 10/10/24 18:00 10/21/24 13:05 0.5 MG Ondansetron HCl 4 mg Q4HP PRN IV 10/10/24 17:45 10/19/24 04:47 4 MG Acetaminophen 650 mg Q6HP PRN PO 10/10/24 17:45 Nitroglycerin 0.4 mg Q5MINP PRN SL 10/10/24 17:45 Atorvastatin Calcium 20 mg HS PO 10/11/24 22:00 10/20/24 21:56 20 MG Furosemide 40 mg BIDD IV 10/10/24 18:00 UNV Pantoprazole Sodium 40 mg DAILY IV 10/11/24 10:00 10/20/24 10:18 40 MG Apixaban 5 mg BID PO 10/11/24 22:00 10/21/24 09:24 5 MG Furosemide 80 mg DAILY IV 10/13/24 10:00 10/18/24 09:53 80 MG Metoprolol Tartrate 25 mg BID PO 10/15/24 22:00 10/21/24 09:24 25 MG Lactulose 30 ml Q6HR PO 10/15/24 18:00 10/21/24 11:23 30 ML Oxycodone/ Acetaminophen 1 tab Q6HP PRN PO 10/15/24 16:30 10/21/24 11:23 1 TAB Amiodarone HCl 200 mg Q12HR PO 10/18/24 22:00 10/21/24 09:24 200 MG laboratory and microbiology Laboratory Tests 10/16/24 04:53 10/15/24 06:46 Test 10/16/24 04:53 Range/Units Serum Glucose 84 74-106 mg/dL Assessment/Plan Impression: Acute hypoxic respiratory failure Dependence on supplemental oxygen Pulmonary embolism AFib with RVR Pulmonary hypertension, RVSP 69 mmHg Hx of nicotine dependence Adenocarcinoma of lung Patient seen and examined Events Low oxygen requirements On 3 liters nasal cannula No acute events Labs and imaging reviewed Management Supplemental oxygen Taper O2 as tolerated Continue bronchodilators - on albuterol Continue antibiotics Eliquis BID for anticoagulation for PE. Pain control - on Percocet Avoid oversedation Diurese w/ Lasix Monitor renal function. Monitor electrolytes. Supplement as necessary. Monitor ins and outs. Protonix for GI ppx Okay to discharge from pulmonary standpoint S/p lung biopsy Dietary Evaluation Review Comments: 1) Ensure enlive 240ml BID 2) Continue current POC Expected Outcomes/Goals: FU 3-5 days to meet at least 75% estimated needs Plan discussed with: Patient RUI OCHOA MD Oct 21, 2024 13:13
[2024-10-21] MEDS ORDERED: PERCOT PO (13:53)
--- NOTE | 2024-10-21 15:29 | DVHPN2 ---
Subjective Patient was sleeping when entering room. After being awakened, she reports having pain to left upper quadrant. Reviewed: Care Plan, H&P, Medications Changes from previous H/P or p: No Changes General: Per HPI Respiratory: Shortness of breath Gastrointestinal: Nausea, Vomiting Objective Vitals Vital Signs Date Time Temp Pulse Resp B/P (MAP) Pulse Ox O2 Delivery O2 Flow Rate FiO2 10/21/24 13:11 108 16 100 10/21/24 13:05 Nasal Cannula 4.0 10/21/24 13:05 36 10/21/24 13:00 97.6 108/69 (82) 97.6 Intake/Output Intake and Output 10/21/24 07:00 Intake Total 750 ml Output Total 450 ml Balance 300 ml Intake Oral 700 ml IV Total 50 ml Output Urine Total 450 ml # Voids 2 General Appearance: Alert, Oriented X3, Cooperative, mild distress HEENT: Atraumatic, PERRLA Lungs: Clear to auscultation, Normal air movement Cardiovascular: Normal S1, Normal S2, Other (AFib with RVR) Abdomen: Normal bowel sounds, Soft, No tenderness Musculoskeletal: Normal sensory function, Normal motor function Neuro: Normal gait, Normal speech Skin: Dry, Intact Psych/Mental Status: Mental status NL, Mood NL Medications Current Medications Medications Dose Ordered Sig/Naldo Route Start Time Stop Time Status Last Admin Dose Admin Atorvastatin Calcium 40 mg HS PO 10/10/24 22:00 Cancel Empaglifozin 10 mg DAILY PO 10/11/24 10:00 10/21/24 09:24 10 MG Ceftriaxone Sodium 50 ml @ 100 mls/hr DAILY@09 IV 10/10/24 17:15 10/20/24 10:15 100 MLS/HR Albuterol 2.5 mg Q4HR NEB 10/10/24 18:00 10/21/24 13:05 2.5 MG Ipratropium [place] 0.5 mg Q4HR NEB 10/10/24 18:00 10/21/24 13:05 0.5 MG Ondansetron HCl 4 mg Q4HP PRN IV 10/10/24 17:45 10/19/24 04:47 4 MG Acetaminophen 650 mg Q6HP PRN PO 10/10/24 17:45 Nitroglycerin 0.4 mg Q5MINP PRN SL 10/10/24 17:45 Atorvastatin Calcium 20 mg HS PO 10/11/24 22:00 10/20/24 21:56 20 MG Furosemide 40 mg BIDD IV 10/10/24 18:00 UNV Pantoprazole Sodium 40 mg DAILY IV 10/11/24 10:00 10/20/24 10:18 40 MG Apixaban 5 mg BID PO 10/11/24 22:00 10/21/24 09:24 5 MG Furosemide 80 mg DAILY IV 10/13/24 10:00 10/18/24 09:53 80 MG Metoprolol Tartrate 25 mg BID PO 10/15/24 22:00 10/21/24 09:24 25 MG Lactulose 30 ml Q6HR PO 10/15/24 18:00 10/21/24 11:23 30 ML Oxycodone/ Acetaminophen 1 tab Q6HP PRN PO 10/15/24 16:30 10/21/24 11:23 1 TAB Amiodarone HCl 200 mg Q12HR PO 10/18/24 22:00 10/21/24 09:24 200 MG Laboratory Results Laboratory Tests 10/15/24 06:46 10/16/24 04:53 Urinalysis Test 10/10/24 11:30 Urine Color Dark-brown (Yellow) Urine Clarity Ex.turbid (Clear) Urine pH 5.5 (5.0-9.0) Urine Specific [place] 1.029 (1.001-1.035) Urine Protein 1+ (Negative) H Urine Ketones Negative (Negative) Urine Blood Negative /uL (Negative) Urine Nitrite Negative (Negative) Urine Bilirubin Negative (Negative) Urine Urobilinogen Normal mg/dL (Negative) Urine Leukocyte Esterase 2+ /uL (Negative) Urine RBC 5 /hpf (0 - 4) Urine Microscopic WBC 27 /HPF (0-5) H Urine Squamous Epithelial Cells Few /hpf (<5) Urine Bacteria Few /hpf (None Seen) H Urine Mucus Many (None Seen) Urine Glucose Trace mg/dL (Normal) Microbiology Microbiology Date/Time Source Procedure Growth Status 10/11/24 00:20 Nose MRSA Screen - Final Complete Labs and/or images reviewed: Labs reviewed by me, Image(s) reviewed by me Assessment/Plan Assessment/Plan Impression: -AFib with RVR -bilateral pulmonary embolism -NSTEMI, probably type 2 -pulmonary mass, biopsy positive for moderately differentiated adenocarcinoma -acute hypoxic respiratory failure -emphysema -history of anticoagulation with Eliquis. Patient uncertain of primary diagnosis -primary hypertension -acute diastolic heart failure -splenic infarct Plan: Events: Patient has been discharged for multiple days. Apparently, they brought in an empty oxygen tank. Social service consultation was placed for which patient has oxygen at bedside now. Patient's family were attempting to keep the patient in the hospital due to her pain. When I assessed the patient, she was sleeping. Patient will have an increase in her discharge pain medication, increasing Percocet 5/325 to two tablets every 6 hours as needed. Plans for discharge today. -continue current rate control agents -pulmonology consultation : Recommendations reviewed -continue Rocephin -continue anticoagulation with Eliquis -bowel regimen -social service consultation for oncology consultation as outpatient. Total time spent with patient discussing and formulating plan of care: 35 minutes. This medical document was created using an electronic medical record system with [employer] dictation system. Although this document has been carefully reviewed, there may still be some phonetic and typographical errors. These areas are purely typographical due to imperfections of the software programs, and do not reflect any compromise in the patient's medical care. Plan discussed with: Patient, Other (RN) My Orders Orders - JOSE MIGUEL SOMERS NP Procedure Category Date Status Time * Machinist/Machine Builder CONS 10/20/24 Transmitted Consult Date of Service: Oct 21, 2024 Billing Provider: JOSE MIGUEL SOMERS NP Common Visit Codes: [id number] INP/OBS CARE(HIGH) JOSE MIGUEL SOMERS NP Oct 21, 2024 15:29
--- NOTE | 2024-10-21 22:34 | DVHPN2 ---
Progress Note - Dictate Date Seen: Oct 21, 2024 Medical Necessity Reason Pt with a Central, PICC or Fol: Yes The following are medically ne: Rojas Catheter Reason for rojas catheter: Strict I&O Subjective Patient was seen and evaluated in follow up. Patient has no new complaints at this time. Patient denies any cardiac symptoms. Patient is cardiac stable for discharge. Telemetry reviewed. vital signs Vital Sign Date Time Temp Pulse Resp B/P (MAP) Pulse Ox O2 Delivery O2 Flow Rate FiO2 10/21/24 13:11 108 16 100 10/21/24 13:05 Nasal Cannula 4.0 10/21/24 13:05 36 10/21/24 09:24 100/63 10/21/24 09:00 97.1 97.1 Total Intake and Output 10/20/24 10/20/24 10/21/24 15:00 23:00 07:00 Intake Total 50 ml 200 ml 500 ml Output Total 100 ml 350 ml Balance -50 ml -150 ml 500 ml medications Current Medications Medications Dose Ordered Sig/[place] Route Start Time Stop Time Status Last Admin Dose Admin Atorvastatin Calcium 40 mg HS PO 10/10/24 22:00 Cancel Empaglifozin 10 mg DAILY PO 10/11/24 10:00 10/21/24 09:24 10 MG Ceftriaxone Sodium 50 ml @ 100 mls/hr DAILY@09 IV 10/10/24 17:15 10/20/24 10:15 100 MLS/HR Albuterol 2.5 mg Q4HR NEB 10/10/24 18:00 10/21/24 13:05 2.5 MG Ipratropium [place] 0.5 mg Q4HR NEB 10/10/24 18:00 10/21/24 13:05 0.5 MG Ondansetron HCl 4 mg Q4HP PRN IV 10/10/24 17:45 10/19/24 04:47 4 MG Acetaminophen 650 mg Q6HP PRN PO 10/10/24 17:45 Nitroglycerin 0.4 mg Q5MINP PRN SL 10/10/24 17:45 Atorvastatin Calcium 20 mg HS PO 10/11/24 22:00 10/20/24 21:56 20 MG Furosemide 40 mg BIDD IV 10/10/24 18:00 UNV Pantoprazole Sodium 40 mg DAILY IV 10/11/24 10:00 10/20/24 10:18 40 MG Apixaban 5 mg BID PO 10/11/24 22:00 10/21/24 09:24 5 MG Furosemide 80 mg DAILY IV 10/13/24 10:00 10/18/24 09:53 80 MG Metoprolol Tartrate 25 mg BID PO 10/15/24 22:00 10/21/24 09:24 25 MG Lactulose 30 ml Q6HR PO 10/15/24 18:00 10/21/24 11:23 30 ML Oxycodone/ Acetaminophen 1 tab Q6HP PRN PO 10/15/24 16:30 10/21/24 11:23 1 TAB Amiodarone HCl 200 mg Q12HR PO 10/18/24 22:00 10/21/24 09:24 200 MG objective GENERAL: Alert and oriented x 3. No acute distress. EYES: PERRL, EOMI. Anicteric. HENT: Moist mucous membranes. LUNGS: Decreased breath sounds. CARDIOVASCULAR: Irregular rate and rhythm. A-fib RVR. ABDOMEN: Soft, nontender and nondistended. EXTREMITIES: No edema. NEUROLOGIC: No focal neurological deficits. SKIN: Warm, dry. laboratory and microbiology Laboratory Tests 10/16/24 04:53 10/15/24 06:46 Test 10/16/24 04:53 Range/Units Serum Glucose 84 74-106 mg/dL Problem List Acute on chronic decompensated HFrEF, NYHA Class III-IV. Acute hypoxic respiratory failure secondary to above. Paroxysmal atrial fibrillation with rapid ventricular response, uncontrolled rate (on amiodarone/Eliquis therapy). Elevated D-dimer rule out PE/DVT. NSTEMI, likely type 2 secondary to above. Hypertension. Dyslipidemia. Suboptimal medical therapy. Assessment/Plan Continued all current supportive medical care. Tylenol #3 for pain management. Eliquis. Amiodarone. Nitro SL. Metoprolol. Additional plan as per the hospital course. Dietary Evaluation Review Comments: 1) Ensure enlive 240ml BID 2) Continue current POC Expected Outcomes/Goals: FU 3-5 days to meet at least 75% estimated needs Plan discussed with: Patient ASHANTI FERNANDEZ MD Oct 21, 2024 13:31
== END 2024-10-21 19:17 | disposition home health service (06) | DRG 180 ==
LOC: EDBD 07:09 → ER 07:09 → OVERFLOW 17:44 → ICU WEST 10-11 00:29 → TELE-WESTW 10-13 17:50
PROVIDERS: ADMIT Nurse Practitioner Acute Care; ATTEND Nurse Practitioner Acute Care
PROC: 05H933Z Insertion of Infusion Device into Right Brachial Vein, Percutaneous Approach (ICD-10-PCS; principal; 2024-10-14)
PROC: B54MZZA Ultrasonography of Right Upper Extremity Veins, Guidance (ICD-10-PCS; 2024-10-14)
DX: C34.91 Malignant neoplasm of unspecified part of right bronchus or lung (principal); I21.A1 Myocardial infarction type 2; I26.99 Other pulmonary embolism without acute cor pulmonale; J96.01 Acute respiratory failure with hypoxia; I50.31 Acute diastolic (congestive) heart failure; I11.0 Hypertensive heart disease with heart failure; C34.92 Malignant neoplasm of unspecified part of left bronchus or lung; E78.5 Hyperlipidemia, unspecified; I48.0 Paroxysmal atrial fibrillation; J43.9 Emphysema, unspecified; E87.6 Hypokalemia; I27.20 Pulmonary hypertension, unspecified; D73.5 Infarction of spleen; Z79.01 Long term (current) use of anticoagulants; Z80.1 Family history of malignant neoplasm of trachea, bronchus and lung; Z87.01 Personal history of pneumonia (recurrent); Z87.891 Personal history of nicotine dependence; Z88.6 Allergy status to analgesic agent; Z91.148 Patient's other noncompliance with medication regimen for other reason; Z99.81 Dependence on supplemental oxygen; Z79.899 Other long term (current) drug therapy
CPT/HCPCS: 36415; 36600; 71045; 71275; 74177; 80048; 80053; 81001; 82378; 82805; 83615; 83735; 83880; 84100; 84132; 84443; 84484; 85025; 85379; 85610; 85652; 85730; 86304; 87081; 93005; 93306; 93970; 94640; 96361; 96374; 97163; 99291; G0378; J1885; J2405; J2470; J3470; J3480; Q9967